=== PATIENT | male | born 1965 | race Hispanic/Latino ===

== ENCOUNTER 2016-09-02 10:20 | Emergency (ER) | payer OTHER ==
[~2016-09-02] VITALS: Ht 175.3 cm; Wt 87.5 kg
[~2016-09-02 10:20] MED LIST: AMOXICILLIN500 MG PO; ATORVASTATIN CA10 MG PO; BACTRIM DS 8001 TAB PO; CHILDREN'S ASPI81 MG PO; DURICEF500 MG PO; ECOTRIN81 MG PO; ESCITALOPRAM10 MG PO; ESCITALOPRAM5 MG PO; FLEXERIL10 MG PO; IBUPROFEN800 MG PO; JANUVIA 100MG100 MG PO; LIDODERM 5% PAT1 PAT TOP; METFORMIN1000 MG PO; MOBIC15 MG PO; MOTRIN800 MG PO; NAPROSYN500 MG PO; NEURONTIN300 MG PO; NORCO 325 MG-51 TAB PO; PEGASYS180 MCG/0. PO; RIBASPHERE RIB PO; ROBITUSSIN W/CO10 ML PO; SOVALDI400 MG PO; TRAMADOL50 MG PO; ZESTRIL20 M1 PO; ZITHROMAX Z-PA250 M1 PO
[2016-09-02] MEDS ORDERED: ASPIRIN EC81 M1 PO (11:01)
[2016-09-02] MEDS ORDERED: NEXIUM40 M1 PO (11:03)
[2016-09-02 11:09] LABS: ABSOLUTE BASOPHIL COUNT 0 /CUMM (0.0-0.2); ABSOLUTE EOSINOPHIL COUNT 0.1 /CUMM (0.0-0.7); ABSOLUTE GRANULOCYTE CT 3.8 /CUMM (1.4-6.5); ABSOLUTE LYMPH COUNT 1.2 /CUMM (1.2-3.4); ABSOLUTE MONOCYTE COUNT 0.7 /CUMM (0.10-0.60); BASOPHIL % 0.2 % (0.0-2.0); EOSINOPHIL % 1.7 % (0-5); GRANULOCYTE % 66.1 % (42.2-75.2); HEMATOCRIT 44.8 % (42-52); MEAN CORPUSCULAR HGB 31.7 PG (27.0-31.0); MEAN CORPUSCULAR HGB CONC 34.7 G/DL (33.0-37.0); MEAN CORPUSCULAR VOLUME 91.4 FL (80.0-94.0); MEAN PLATELET VOLUME 8.6 FL (7.4-10.4); PLATELET COUNT 85 /CUMM (130-400); RBC DISTRIBUTION WIDTH 13.9 % (11.5-14.5); WHITE BLOOD CELL COUNT 5.8 /CUMM (4.8-10.8)
--- NOTE | 2016-09-02 11:27 | ED GI/GU/ABDOMINAL COMPLAINT ---
History of Present Illness General Chief Complaint: General Adult Stated Complaint: N/V/D, CHEST PAIN Source: patient, old records Exam Limitations: no limitations Vital Signs & Intake/Output Vital Signs & Intake/Output Vital Signs Date Time Temp Pulse Resp B/P Pulse O2 O2 Flow FiO2 Ox Delivery Rate 09/02 1359 97.8 76 18 147/88 98 Room Air 09/02 1028 97.6 89 16 162/94 95 Room Air Allergies Coded Allergies: NO KNOWN ALLERGIES (10/29/12) Reconcile Medications Aspirin (Ecotrin*) 81 MG TABLET.DR 1 TAB PO DAILY HEART HEALTH (Reported) Atorvastatin Calcium (Lipitor) 10 MG TABLET 1 TAB PO AT BEDTIME CHOLESTEROL ( Reported) Escitalopram Oxalate 5 MG TABLET 5 MG PO AT BEDTIME DEPRESSION (Reported) Esomeprazole (Nexium) 40 MG CAPSULE.DR 1 CAP PO DAILY GI (Reported) Famotidine (Pepcid) 20 MG TABLET 1 TAB PO BID gastritis Gabapentin (Neurontin) 300 MG CAP 1 CAP PO TID NEUROPATHY Ibuprofen (Motrin) 800 MG TAB 1 TAB PO Q8P PRN PAIN Lisinopril (Zestril) 20 MG TABLET 1 TAB PO DAILY HEART (Reported) METFORMIN HCL (Metformin) 1,000 MG TABLET 1 TAB PO BID UNKNOWN (Reported) Ondansetron (Zofran Odt) 4 MG TAB.RAPDIS 1 TAB SL TID PRN nausea Sitagliptin Phosphate (Januvia) 100 MG TABLET 1 TAB PO DAILY UNKNOWN ( Reported) Triage Note: 51 Y/O MALE C/O "BURNING" ACROSS ABDOMEN X 3 DAYS WITH NAUSEA/VOMITING. STATES HE WOKE TODAY WITH CHEST PAIN BUT, AT PRESENT, THE PAIN IS ONLY ACROSS ABDOMEN. CURRENTLY FEELS " A LITTLE NAUSEOUS". AFEBRILE. EKG COMPLETED AND SIGNED BY MD Triage Nurses Notes Reviewed? yes Onset: Abrupt Duration: day(s): (3), constant Timing: recent history Quality/Severity: aching, burning, cramping, sharpness Severity Numbers: 6 Location: generalized abdomen Radiation: no radiation Activities at Onset: none Prior Abdominal Problems: none Modifying Factors: Worsens With: eating. Associated Symptoms: nausea/vomiting HPI: 51-year-old male with history of hypertension high cholesterol diabetes presents emergency room complaining of burning aching pain generalized across his abdomen for the past 3 days associated multiple episodes of nausea and vomiting and diarrhea this morning. He states that this morning he woke up had an episode of vomiting and developed substernal chest pain that is since resolved. He describes pain as burning. He's been unable tolerate by mouth secondary to his symptoms. He is an active smoker and states that he was drinking heavily prior to the symptoms beginning hours not had any alcoholic drinks since. No history of abdominal surgeries in the past no fever no chills no black or bloody stools no hematemesis. There are no other modifying factors or associated symptoms no sick contacts recent travel. (GRAYSON SKY) Past History Travel History Traveled to [place] past 21 day No Medical History Any Pertinent Medical History? see below for history Neurological: migraine EENT: NONE Cardiovascular: hypertension, HIGH CHOLESTEROL Respiratory: NONE Gastrointestinal: NONE Hepatic: NONE Renal: NONE Musculoskeletal: NONE Psychiatric: NONE Endocrine: diabetes Blood Disorders: NONE Cancer(s): NONE [employer]ESSING/Reproductive: NONE Surgical History Surgical History: JAW FX, RIGHT HIP FX Psychosocial History What is your primary language Malagasy Tobacco Use: Current Daily Use Daily Tobacco Use Amount/Type: => 5 Cigarettes daily Family History Hx Contributory? No (GRAYSON SKY) Review of Systems Review of Systems Constitutional: Reports: see HPI. All Other Systems: Reviewed and Negative Comments Review of systems: See HPI, All other systems negative. Constitutional, no chills no fever, no malaise HEENT: no sore throat no congestion, no ear pain Cardiovascular: No chest pain , no palpitation Skin, no jaundice no rashes, no change in skin Respiratory: No dyspnea no cough no sputum no hemoptysis GI: nausea vomiting, no diarrhea, no bloating/constipation : No dysuria No hematuria, no frequency, Muscle skeletal: No joint pain, no joint swelling, no back pain Neurologic: No numbness no headache Psych: No stress Heme/endocrine: No bruising no bleeding Immunology: No lymphadenopathy (GRAYSON SKY) Physical Exam Physical Exam General Appearance: well developed/nourished, no apparent distress, alert, awake Cardiovascular: regular rate/rhythm Gastrointestinal: normal bowel sounds, soft, non-tender Comments: Well-developed well-nourished person in no acute distress HEENT: Normal EENT exam; PERRL, EOMI, no nystagmus. HEAD is atraumatic. moist mucous membranes. Neck: Supple, normal range of motion Back: Nontender, no CVA tenderness. Full range of motion Cardiovascular: Regular rate and rhythms no murmurs rubs Respiratory: No respiratory distress. Patient speaking in full complete sentences. Breath sounds clear to auscultation bilaterally: NO W/R/R Abdomen: Soft, nontender nondistended, no appreciable organomegaly. Normal bowel sounds. No rebound/guarding, No appreciable enlargement of the abdominal aorta, No ascites. Extremity: No edema, full range of motion of extremitie Neuro: Alert oriented x3, motor sensory normal There were no obvious focal neurologic abnormalities. Skin: No appreciable rash on exposed skin, skin is warm and dry. No jaundice Psych: Mood and affect is normal, memory and judgment is normal. Core Measures ACS in differential dx? Yes Severe Sepsis Present: No Septic Shock Present: No (CHAPINCITO GOMEZ,GRAYSON) Progress Differential Diagnosis: AMI, appendicitis, biliary colic, bowel obstruction, colon cancer, cholecystitis, diverticulitis, gastritis, hepatitis, ischemic bowel, inflamm bowel dis, pancreatitis, peptic ulcer, PUD/GERD, perforated viscous, pyelonephritis Plan of Care: Orders Procedure Date/time Status Add-on Test (ER Only) 09/02 1127 Active LIPASE 09/02 1053 Complete AMYLASE 09/02 1053 Complete TROPONIN LEVEL 09/02 1043 Complete COMPREHENSIVE METABOLIC PANEL 09/02 1043 Complete CBC WITHOUT DIFFERENTIAL 09/02 1043 Complete EKG 09/02 1021 Active Laboratory Tests 09/02/16 1053: Anion Gap 8, Estimated GFR > 60, BUN/Creatinine Ratio 20.0, Glucose 120 H, Calcium 8.5, Total Bilirubin 0.8, AST 117 H, ALT 181 H, Alkaline Phosphatase 88, Troponin I < 0.01, Total Protein 6.7, Albumin 3.5, Globulin 3.2, Albumin/ Globulin Ratio 1.1, Amylase 44, Lipase 173, CBC w Diff NO MAN DIFF REQ, RBC 4.90 , MCV 91.4, MCH 31.7 H, RDW 13.9, MPV 8.6, Gran % 66.1, Lymphocytes % 20.6, Monocytes % 11.4 H, Eosinophils % 1.7, Basophils % 0.2, Absolute Granulocytes 3.8, Absolute Lymphocytes 1.2, Absolute Monocytes 0.7 H, Absolute Eosinophils 0.1, Absolute Basophils 0, PUBS MCHC 34.7 Labs ordered old records reviewed IV fluids Pepcid Zofran Toradol ordered CAT scan ordered. case d/w dr diaz On repeat evaluation patient has had no episodes of vomiting here in the department. I discussed them at length all his lab results and CT findings including the incidental findings on CT regarding his liver which the patient states he is been treated for hepatitis C and has been told he has cirrhosis. I discussed with him the importance of alcohol cessation, prescription for Zofran, Pepcid provided advised clear liquid diet advance as tolerated, advised return anytime sooner if his symptoms worsen or he has any other concerns he feels comfortable this plan (CHAPINCITO GOMEZ,GRAYSON) Diagnostic Imaging: Viewed by Me: CT Scan. Discussed w/RAD: CT Scan. Radiology Impression: PATIENT: ROSELIA PACK PRESENT AGE: 51 PATIENT ACCOUNT NO: [id number] : 63 LOCATION: [facility] ORDERING PHYSICIAN: GRAYSON GOMEZ SERVICE DATE: 09/02/16 EXAM TYPE: CAT - CT ABD & PELVIS W IV CONTRAST EXAMINATION: CT ABDOMEN AND PELVIS WITH CONTRAST CLINICAL INFORMATION: Nausea. Vomiting. Alcohol use. abdominal pain. Rule out pancreatitis. COMPARISON: MRI dated 06/16/2013 TECHNIQUE: Multidetector volumetric imaging was performed of the abdomen and pelvis before and after the IV administration of 95 mL of Optiray 320 intravenous contrast. Sagittal and coronal reformatted images were obtained on the technologist's workstation. DLP: 385 mGy-cm FINDINGS: LUNG BASES: Mild dependent atelectasis is present within the lower lobes. As seen on image series 2, there are 2 pulmonary nodules in the right middle lobe measuring 4 and 3 mm in diameter. LIVER, GALLBLADDER, AND BILIARY TREE: There is relative enlargement of the left hepatic lobe as compared to the right. There is a subtle 5.6 cm lesion in hepatic segment 8 at the dome of the liver which is not well-seen on the prior MRI, though that study was not contrast enhanced. As seen on image series 2, there is a 2.5 x 1 cm area of increased attenuation along the anterior margin of hepatic segment 4A which may correspond to a lesion, focal fatty sparing, or variation of hepatic flow. Subtle nodularity of the hepatic contour is consistent with cirrhosis. The gallbladder is unremarkable with no evidence of radiopaque gallstones, gallbladder wall thickening, or obvious pericholecystic inflammatory changes. PANCREAS: Unremarkable. SPLEEN: Unremarkable. ADRENAL GLANDS: Unremarkable. KIDNEYS AND URETERS: The kidneys are normal in size, shape, and attenuation. No hydronephrosis, hydroureter, or calculi seen. No perinephric stranding. BLADDER: Unremarkable. GASTROINTESTINAL TRACT: Stomach, small bowel, and colon are normal in caliber. No appreciable wall thickening or surrounding inflammatory changes. Appendix is normal. ABDOMINAL WALL: No significant hernia is appreciated. LYMPH NODES: There is a enlarged 1.3 cm periportal lymph node on image 25/95 of series 2. A 1.1 cm portacaval lymph node is present on that same image. A few smaller retroperitoneal lymph nodes are present in this region including a 1 cm node just anteromedial to the left adrenal gland. A 0.8 cm aortocaval node is present on image 34/95 of series 2. There are multiple subcentimeter mesenteric nodes which are within normal limits by size criteria. VASCULAR: Calcific atherosclerosis is present in the abdominal aorta. No interval dilatation. PELVIC VISCERA: Unremarkable. OSSEOUS STRUCTURES: There is mild to moderate multilevel degenerative spondylosis in the thoracal lumbar junction. No acute fractures. No osseous lesions are identified. There is an old healed fracture of the right acetabulum. Mild degenerative arthritis is present in the hips. IMPRESSION: 1. No CT evidence of acute pancreatitis, though serum amylase lipase levels would be more sensitive for mild pancreatitis. No acute findings are identified. 2. Hepatic cirrhosis. A 5.6 cm lesion is present within the right hepatic lobe and, given the cirrhosis and underlying history of hepatitis C, further evaluation with MRI of the abdomen with and without contrast is advised to evaluate this potential neoplasm. Additional smaller, more subtle hepatic lesions may be present in the right hepatic lobe. 3. Mild periportal adenopathy. 4. Two noncalcified pulmonary nodules in the right middle lobe, measuring 3 and 4 mm. Consider follow-up chest CT with contrast for a more complete evaluation of the chest. DICTATED BY: ROB JAMES MD DATE/TIME DICTATED:09/02/161306 CLASSIFICATION ANALYST:IGLBERT DATE/TIME TRANSCRIBED:09/02/161306 CONFIDENTIAL, DO NOT COPY WITHOUT APPROPRIATE AUTHORIZATION. <Electronically signed in Other Vendor System> SIGNED BY: ROB JAMES MD 09/02/16 1328 Initial ED EKG: SINUS AT 80, NO ACUTE st SEGMENT CHANGES NORMAL AXIS Prior EKG: unchanged (07/2014) (GRAYSON SKY) Departure Departure Time of Disposition: 1345 Disposition: HOME OR SELF CARE Condition: Stable Clinical Impression Primary Impression: Abdominal pain Secondary Impressions: Nausea & vomiting Referrals: YVETTE LONDONO APRN (PCP/Family) Additional Instructions: [place] diet no fatty spicy greasy your primary care physician this week return with any concerns clear liquids advance diet as tolerated These prescriptions were sent to your pharmacy Departure Forms: Customer Survey General Discharge Information Prescriptions: Current Visit Scripts Ondansetron (Zofran Odt) 1 TAB SL TID PRN nausea #10 TAB Famotidine (Pepcid) 1 TAB PO BID #14 TAB (GRAYSON SKY) PA/WELDER APPRENTICE Co-Sign Statement Statement: ED Attending supervision documentation- [] I saw and evaluated the patient. I have also reviewed all the pertinent lab results and diagnostic results. I agree with the findings and the plan of care as documented in the PA's/WELDER APPRENTICE's documentation. [X] I have reviewed the ED Record and agree with the PA's/WELDER APPRENTICE's documentation. [] Additions or exceptions (if any) to the PAs/WELDER APPRENTICE's note and plan are summarized below: [] (KAZ DIAZ DO)
--- NOTE | 2016-09-02 13:28 | CT SCAN REPORT ---
EXAMINATION: CT ABDOMEN AND PELVIS WITH CONTRAST CLINICAL INFORMATION: Nausea. Vomiting. Alcohol use. abdominal pain. Rule out pancreatitis. COMPARISON: MRI dated 06/16/2013 TECHNIQUE: Multidetector volumetric imaging was performed of the abdomen and pelvis before and after the IV administration of 95 mL of Optiray 320 intravenous contrast. Sagittal and coronal reformatted images were obtained on the technologist's workstation. DLP: 385 mGy-cm FINDINGS: LUNG BASES: Mild dependent atelectasis is present within the lower lobes. As seen on image 3/ series 2, there are 2 pulmonary nodules in the right middle lobe measuring 4 and 3 mm in diameter. LIVER, GALLBLADDER, AND BILIARY TREE: There is relative enlargement of the left hepatic lobe as compared to the right. There is a subtle 5.6 cm lesion in hepatic segment 8 at the dome of the liver which is not well-seen on the prior MRI, though that study was not contrast enhanced. As seen on image 15/ series 2, there is a 2.5 x 1 cm area of increased attenuation along the anterior margin of hepatic segment 4A which may correspond to a lesion, focal fatty sparing, or variation of hepatic flow. Subtle nodularity of the hepatic contour is consistent with cirrhosis. The gallbladder is unremarkable with no evidence of radiopaque gallstones, gallbladder wall thickening, or obvious pericholecystic inflammatory changes. PANCREAS: Unremarkable. SPLEEN: Unremarkable. ADRENAL GLANDS: Unremarkable. KIDNEYS AND URETERS: The kidneys are normal in size, shape, and attenuation. No hydronephrosis, hydroureter, or calculi seen. No perinephric stranding. BLADDER: Unremarkable. GASTROINTESTINAL TRACT: Stomach, small bowel, and colon are normal in caliber. No appreciable wall thickening or surrounding inflammatory changes. Appendix is normal. ABDOMINAL WALL: No significant hernia is appreciated. LYMPH NODES: There is a enlarged 1.3 cm periportal lymph node on image 25/95 of series 2. A 1.1 cm portacaval lymph node is present on that same image. A few smaller retroperitoneal lymph nodes are present in this region including a 1 cm node just anteromedial to the left adrenal gland. A 0.8 cm aortocaval node is present on image 34/95 of series 2. There are multiple subcentimeter mesenteric nodes which are within normal limits by size criteria. VASCULAR: Calcific atherosclerosis is present in the abdominal aorta. No interval dilatation. PELVIC VISCERA: Unremarkable. OSSEOUS STRUCTURES: There is mild to moderate multilevel degenerative spondylosis in the thoracal lumbar junction. No acute fractures. No osseous lesions are identified. There is an old healed fracture of the right acetabulum. Mild degenerative arthritis is present in the hips. IMPRESSION: 1. No CT evidence of acute pancreatitis, though serum amylase lipase levels would be more sensitive for mild pancreatitis. No acute findings are identified. 2. Hepatic cirrhosis. A 5.6 cm lesion is present within the right hepatic lobe and, given the cirrhosis and underlying history of hepatitis C, further evaluation with MRI of the abdomen with and without contrast is advised to evaluate this potential neoplasm. Additional smaller, more subtle hepatic lesions may be present in the right hepatic lobe. 3. Mild periportal adenopathy. 4. Two noncalcified pulmonary nodules in the right middle lobe, measuring 3 and 4 mm. Consider follow-up chest CT with contrast for a more complete evaluation of the chest.
[2016-09-02] MEDS ORDERED: ZOFRAN ODT4 M1 SL (13:46)
[2016-09-02] MEDS ORDERED: PEPCID20 M1 PO (13:46)
[2016-09-02 13:59] VITALS: BP 147/88
== END 2016-09-02 14:00 ==
LOC: ERH 10:20
PROVIDERS: Emergency Medicine
DX: R10.84 Generalized abdominal pain (principal); R11.2 Nausea with vomiting, unspecified
CPT/HCPCS: 74177; 93005; 93010; 96374; 96375; J1885; J2405

== ENCOUNTER 2017-08-06 09:31 | Emergency (ER) | payer OTHER ==
[~2017-08-06] VITALS: Ht 175.3 cm; Wt 81.6 kg
[~2017-08-06 09:31] MED LIST changes: +ANUSOL-HC25 M1 RC; +ASPIRIN EC81 M1 PO; -ATORVASTATIN CA10 MG PO; +BENTYL10 M1 PO; +CYCLOBENZAPRINE10 M1 PO; +GLUCOPHAGE1000 M1 PO; +IBUPROFEN800 M1 PO; -JANUVIA 100MG100 MG PO; +JANUVIA100 M1 PO; +LIDOCAINE1 EACH TOP; +LINZESS145 MC1 PO; +LIPITOR10 M1 PO; +MAALOX MAXIMUM355 ML PO; -METFORMIN1000 MG PO; +MIRALAX119 GM PO; +NEXIUM40 M1 PO; +OMEPRAZOLE20 M3 PO; +PEPCID20 M1 PO; +PERCOCET 5-3251 EACH PO; +ZOFRAN ODT4 M1 SL
--- NOTE | 2017-08-06 11:03 | ED GI/GU/ABDOMINAL COMPLAINT ---
History of Present Illness General Chief Complaint: Abdominal Pain/Flank Pain Stated Complaint: HX OF STOMACH CANCER C/O ABD PAIN Source: patient, old records Exam Limitations: no limitations Vital Signs & Intake/Output Vital Signs & Intake/Output Vital Signs Date Time Temp Pulse Resp B/P B/P Pulse O2 O2 Flow FiO2 Mean Ox Delivery Rate 08/06 1328 97.1 93 18 153/89 97 08/06 0951 97.9 106 20 147/110 95 Room Air Room Air Allergies Coded Allergies: NO KNOWN ALLERGIES (10/29/12) Reconcile Medications Aspirin (Ecotrin*) 81 MG TABLET.DR 1 TAB PO DAILY HEART HEALTH (Reported) Atorvastatin Calcium (Lipitor) 10 MG TABLET 1 TAB PO DAILY CHOLESTEROL ( Reported) Dicyclomine Hydrochloride (Bentyl) 10 MG CAPSULE 1 CAP PO TID PRN abdominal pain Esomeprazole (Nexium) 40 MG CAPSULE.DR 1 CAP PO DAILY GI (Reported) Famotidine (Pepcid) 20 MG TABLET 1 TAB PO BID GERD Ibuprofen 800 MG TABLET 1 TAB PO TID PRN pain Lidocaine 5 % ADH..PATCH 1 PAT TOP DAILY PAIN (Reported) Linaclotide (Linzess) 145 MCG CAPSULE 1 CAP PO DAILY GI (Reported) Lisinopril (Zestril) 20 MG TABLET 1 TAB PO DAILY BP (Reported) Mag Hydrox/Al Hydrox/Simeth (Maalox Maximum Strength Susp) 400 MG-400 MG-40 MG/5 ML ORAL.SUSP 1 DOSE PO TIDAC PRN abd pain Metformin HCl (Glucophage) 1,000 MG TABLET 1 TAB PO BID DM (Reported) Oxycodone HCl 5 MG TABLET 1 TAB PO BIDP PRN PAIN (Reported) Oxycodone HCl 10 MG TABLET 1 TAB PO 4XDP PRN pain Sitagliptin Phosphate (Januvia) 100 MG TABLET 1 TAB PO DAILY DM (Reported) Triage Note: PT TO ED WITH C/O "ABD PAIN X 2 MONTHS, THEY HAVE TO GET THE FLUID OFF". PT DENIES PRIOR THORACENTESIS IN THE PAST. + NAUSEA + DIARRHEA. Triage Nurses Notes Reviewed? yes Onset: Gradual Duration: constant, x 2 months Timing: recent history Quality/Severity: sharpness, severe Severity Numbers: 8 Location: generalized abdomen Radiation: no radiation Prior Abdominal Problems: similar symptoms No Modifying Factors: none Associated Symptoms: dyspnea HPI: 52-year-old male with history of liver cancer with metastases to the lungs hepatitis C presents complaining of diffuse abdominal pain and distention for the past 2 months. He saw his oncologist Dr. Cain this week and was told that he needs to have the fluid on his abdomen drained. He was supposed to follow-up next week for the same however states could not take the pain anymore. He states it is now making him feel short of breath which he's also had for the past. month. No fever no chills no vomiting or diarrhea however he does report nausea intermittently. The patient is supposed to follow up with a GI doctor and palliative care and pain management out of the [place] next week. He has never had a paracentesis before. There's been no change in his mental status per family he is been taking oxycodone 5 mg for the pain without improvement. no cough no hemoptysis, no chest pain (Lazarus Lu) Past History Travel History Traveled to [place] past 21 day No Medical History Any Pertinent Medical History? 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 No (Lazarus Lu) Review of Systems Review of Systems Constitutional: Reports: see HPI. Comments Review of systems: See HPI, All other systems negative. Constitutional, no chills no fever, malaise HEENT: no sore throat Cardiovascular: No chest pain , no palpitation Skin: no rashes, no change in skin Respiratory: dyspnea no cough no sputum GI: nausea no vomiting, diarrhea : No dysuria No hematuria Muscle skeletal: No joint pain, no back pain, no neck pain, Neurologic: no headache Heme/endocrine: No bruising (Lazarus Lu) Physical Exam Physical Exam General Appearance: well developed/nourished, alert, awake Gastrointestinal: distention, firm, ascites Comments: Well-developed well-nourished person in no acute distress HEENT: Normal EENT exam; PERRL, EOMI,HEAD is atraumatic. moist mucous membranes. Neck: Supple,, normal range of motion Back: Nontender, no CVA tenderness. Full range of motion Cardiovascular: Regular rate and rhythms no murmurs rubs Respiratory: No respiratory distress. Patient speaking in full complete sentences. diminished breath sounds b/l, NO W/R/R Abdomen: Soft, abdomen is firm, nontender distended, Normal bowel sounds. No rebound/guarding, No appreciable enlargement of the abdominal aorta Extremity: No edema, full range of motion of extremities Neuro: Alert oriented x3, motor sensory normal,There were no obvious focal neurologic abnormalities. Skin: skin is jaundice, skin is warm and dry. Psych: Mood and affect is normal, memory and judgment is normal. Core Measures ACS in differential dx? No Sepsis Present: No Sepsis Focused Exam Completed? No (Donna GOMEZ,Lazarus) Progress Differential Diagnosis: bowel obstruction, cholecystitis, gastritis, hepatitis, inflamm bowel dis, pancreatitis, peptic ulcer, PUD/GERD, perforated viscous, SBO , malignancy, sbp Plan of Care: Orders Procedure Date/time Status PARTIAL THROMBOPLASTIN TIME 08/06 1059 Complete PROTHROMBIN TIME 08/06 1059 Complete URINALYSIS 08/06 1054 Complete LIPASE 08/06 1054 Complete LACTIC ACID 08/06 1054 Complete COMPREHENSIVE METABOLIC PANEL 08/06 1054 Complete CBC WITHOUT DIFFERENTIAL 08/06 1054 Complete AMYLASE 08/06 1054 Complete Laboratory Tests 08/06/17 1354: Lactic Acid Cancelled 08/06/17 1204: Urinalysis LIGHT H, Urine Color ORANG H, Urine Clarity CLEAR, Urine pH 6.0, Ur Specific [place] >= 1.030, Urine Protein TRACE H, Urine Ketones TRACE H, Urine Nitrite POS H, Urine Bilirubin POS@ICTO H, Urine Urobilinogen 1.0, Ur Leukocyte Esterase NEG, Ur Microscopic SEDIMENT EXAMINED, Urine RBC 1-3, Urine WBC 1-3 H, Ur Epithelial Cells FEW, Urine Bacteria MANY H, Urine Mucus MOD H, Urine Hemoglobin NEG, Urine Glucose NEG 08/06/17 1130: Anion Gap 15, Estimated GFR > 60, BUN/Creatinine Ratio 24.0, Glucose 159 H, Lactic Acid 1.5, Calcium 9.1, Total Bilirubin 2.8 H, AST 252 H, ALT 113 H, Alkaline Phosphatase 434 H, Total Protein 8.0, Albumin 3.8, Globulin 4.2, Albumin/Globulin Ratio 0.9 L, Amylase 38, Lipase 128, PT 16.6 H, INR 1.59 H, APTT 43 H, CBC w Diff MAN DIFF ORDERED, RBC 3.94 L, MCV 81.4, MCH 27.1, RDW 19.1 H, MPV 9.6, Segmented Neutrophils 60, Band Neutrophils 7 H, Lymphocytes 15 L, Monocytes 17 H, Metamyelocytes 1, Platelet Estimate ADEQUATE, Polychromasia 1+, Hypochromic-Microcytic 2+, Anisocytosis 1+, PUBS MCHC 33.3 case d/w dr aceves and IR, us guided paracentesis ordered. labs ordered, pt med with dilaudid 1mg iv 1310 I discussed with the patient at length all his labs he reports significant improvement and resolution of his pain he had 3500 mL aspirated. I discussed with him need for close follow-up as scheduled next week with palliative care GI pain management and his oncologist. Return precautions were discussed at length I spoke with Dr. Aceves the patient feels well he denies any dizziness lightheadedness she is ambulating around the room well. He denies nausea vomiting. He feels comfortable plan to discharge at this time we'll send him home with oxycodone if he redevelops pain however was advised strongly to return with any concerns he feels comfortable with this plan Diagnostic Imaging: Viewed by Me: Ultrasound. Discussed w/RAD: Ultrasound. Radiology Impression: PATIENT: ROSELIA PACK PRESENT AGE: 52 PATIENT ACCOUNT NO: [id number] : 63 LOCATION: [facility] ORDERING PHYSICIAN: Lazarus GOMEZ SERVICE DATE: 08/06/17 EXAM TYPE: US - US- PARACENTESIS EXAMINATION: PARA/PERITONEOCENTESIS CLINICAL INFORMATION: Ascites TECHNIQUE: Informed consent was obtained from the patient prior to the procedure. During this process, the procedure and potential alternatives were explained, along with the intended outcome and benefits. The risks of the procedure, as wall as the risk of not doing the procedure, were discussed. The patient was given the opportunity to ask questions regarding the procedure and appeared competent to make medical decisions. A signed consent form which documents this discussion was placed in the medical record. A timeout procedure was performed. Ultrasound evaluation of the abdomen for ascites was performed. Hard copy images were stored in our PACS system. A large amount of ascites is noted in the peritoneal cavity. The left lower quadrant was chosen as the access site. Using standard interventional and sterile techniques, under direct US guidance, a 6 Pakistani pigtail catheter was introduced into the left lower quadrant using a standard safety needle technique. Approximately 3550 mL of clear yellow fluid was removed into the standard Vacutainer bottles. The catheter was then removed. A small amount of Dermabond was applied to the entry site. Good hemostasis was achieved. No laboratory tests were requested and the fluid was discarded. The patient demonstrated immediate symptomatic relief. The patient tolerated the procedure well. A sterile dressing was placed. The patient was discharged in good condition. Complications: None Impression: 1. Successful ultrasound-guided paracentesis of 3550 mL of fluid. DICTATED BY: Andry Sebastian MD DATE/TIME DICTATED:08/06/171304 TITLE ASSISTANT:GILBERT DATE/TIME TRANSCRIBED:08/06/171304 CONFIDENTIAL, DO NOT COPY WITHOUT APPROPRIATE AUTHORIZATION. <Electronically signed in Other Vendor System> SIGNED BY: Andry Sebastian MD 08/06/17 1310 Initial ED EKG: none (Lazarus Lu) Departure Departure Time of Disposition: 1309 Disposition: HOME OR SELF CARE Condition: Stable Clinical Impression Primary Impression: Ascites Qualifiers: Ascites type: malignant Qualified Code: R18.0 - Malignant ascites Secondary Impressions: Chronic abdominal pain Elevated bilirubin Liver cancer Qualifiers: Liver malignancy type: unspecified primary liver malignancy Qualified Code: C22.8 - Malignant neoplasm of liver, primary, unspecified as to type Referrals: Kavita Perdue APRN (PCP/Family) Additional Instructions: follow up with your GI out of [place] as scheduled next week as well as your oncologist dr long. oxycodone as directed. this was printed at the [facility]. Return at anytime sooner with any concerns Departure Forms: Customer Survey General Discharge Information Prescriptions: Current Visit Scripts Oxycodone HCl 1 TAB PO 4XDP PRN pain #20 TAB (Lazarus Lu) PA/EDM OPERATOR Co-Sign Statement Statement: ED Attending supervision documentation- [] I saw and evaluated the patient. I have also reviewed all the pertinent lab results and diagnostic results. I agree with the findings and the plan of care as documented in the PA's/EDM OPERATOR's documentation. [X] I have reviewed the ED Record and agree with the PA's/EDM OPERATOR's documentation. [] Additions or exceptions (if any) to the PAs/EDM OPERATOR's note and plan are summarized below: [] (Yola ACEVES,Princess)
[2017-08-06] MEDS ORDERED: OXYCODONE HCL5 M1 PO (11:39)
[2017-08-06 11:52] LABS: PT 16.6 SEC (9.4-12.5); PTT 43 SEC (25-37)
[2017-08-06 12:05] LABS: HEMATOCRIT 32.1 % (42-52); MEAN CORPUSCULAR HGB 27.1 PG (27.0-31.0); MEAN CORPUSCULAR HGB CONC 33.3 G/DL (33.0-37.0); MEAN CORPUSCULAR VOLUME 81.4 FL (80.0-94.0); MEAN PLATELET VOLUME 9.6 FL (7.4-10.4); PLATELET COUNT 248 /CUMM (130-400); RBC DISTRIBUTION WIDTH 19.1 % (11.5-14.5); RED BLOOD CELL CT 3.94 /CUMM (4.70-6.10); WHITE BLOOD CELL COUNT 4.1 /CUMM (4.8-10.8)
--- NOTE | 2017-08-06 13:10 | ULTRASOUND REPORT ---
EXAMINATION: PARA/PERITONEOCENTESIS CLINICAL INFORMATION: Ascites TECHNIQUE: Informed consent was obtained from the patient prior to the procedure. During this process, the procedure and potential alternatives were explained, along with the intended outcome and benefits. The risks of the procedure, as wall as the risk of not doing the procedure, were discussed. The patient was given the opportunity to ask questions regarding the procedure and appeared competent to make medical decisions. A signed consent form which documents this discussion was placed in the medical record. A timeout procedure was performed. Ultrasound evaluation of the abdomen for ascites was performed. Hard copy images were stored in our PACS system. A large amount of ascites is noted in the peritoneal cavity. The left lower quadrant was chosen as the access site. Using standard interventional and sterile techniques, under direct US guidance, a 6 Danish pigtail catheter was introduced into the left lower quadrant using a standard safety needle technique. Approximately 3550 mL of clear yellow fluid was removed into the standard Vacutainer bottles. The catheter was then removed. A small amount of Dermabond was applied to the entry site. Good hemostasis was achieved. No laboratory tests were requested and the fluid was discarded. The patient demonstrated immediate symptomatic relief. The patient tolerated the procedure well. A sterile dressing was placed. The patient was discharged in good condition. Complications: None Impression: 1. Successful ultrasound-guided paracentesis of 3550 mL of fluid.
[2017-08-06] MEDS ORDERED: OXYCODONE HCL5 M2 PO (13:11)
[2017-08-06] MEDS ORDERED: OXYCODONE HCL10 M2 PO (13:20)
[2017-08-06 13:28] VITALS: BP 153/89
== END 2017-08-06 13:57 ==
LOC: ERH 09:31
PROVIDERS: Physician Assistant Medical
DX: R18.8 Other ascites (principal); C22.8 Malignant neoplasm of liver, primary, unspecified as to type; R17 Unspecified jaundice
CPT/HCPCS: 81001; 96374; J3490

== ENCOUNTER 2017-08-20 14:35 | Inpatient (IN) | payer OTHER ==
[~2017-08-20] VITALS: Ht 175.3 cm; Wt 79.6 kg
[~2017-08-20 14:35] MED LIST changes: +OXYCODONE HCL10 M2 PO; +OXYCODONE HCL5 M1 PO; +OXYCODONE HCL5 M2 PO
--- NOTE | 2017-08-20 14:53 | ED GI/GU/ABDOMINAL COMPLAINT ---
History of Present Illness General Chief Complaint: General Adult Stated Complaint: SIB FOR ADMISSION Source: patient, family Exam Limitations: confusion Vital Signs & Intake/Output Vital Signs & Intake/Output Vital Signs Date Time Temp Pulse Resp B/P B/P Pulse O2 O2 Flow FiO2 Mean Ox Delivery Rate 08/22 0944 118/70 08/22 0800 Nasal 5.0L Cannula 08/22 0651 98.0 98 20 118/70 96 Nasal 5.0L Cannula 08/22 0000 Nasal 5.0L Cannula 08/21 2241 98.6 96 20 126/80 94 Nasal 5.0L Cannula 08/21 2223 Nasal 5.0L Cannula 08/21 1845 90 Nasal 6.0L Cannula 08/21 1600 98.0 91 20 110/64 91 Nasal 6.0L Cannula 08/21 1134 Nasal 6.0L Cannula 08/21 1108 112 140/60 ED Intake and Output 08/22 0000 08/21 1200 Intake Total 445 Output Total 450 Balance -450 445 Intake, IV 345 Intake, Oral 100 Number 2 Bowel Movements Output, Urine 450 Patient 172 lb Weight Allergies Coded Allergies: NO KNOWN ALLERGIES (10/29/12) Triage Note: [address] TAYLOR'S OFFICE FOR PROBABLE ADMISSION FOR PAIN CONTROL, POSSIBLE PARACENTESIS AND ? HOSPICE CONSULT. PT HAS EXTENSIVE METS HEPATIC CA AND NEW ONSET CONFUSION AND IRRITIBILITY. WAS SUPPOSED TO RECEIVE MS CONTIN 200MG BUT UNABLE TO FILL DUE TO INSURANCE ISSUES. APPEAR PALE AND O2 SAT 66% BUT REFUSING OXYGEN AT THIS TIME. ABDOMEN FIRM, DISTENDED. PAIN TO ABDOMEN AND BACK. NOT ORIENTED TO TIME. FAMILY AT BEDSIDE Triage Nurses Notes Reviewed? yes HPI: Mr. Pack is a 52 yo m with a PMH significant for HCC (diagnosed 2016) s/p VI[facility] HU[facility] TACE with new metastatic lung disease, Hepatitis C s/p 3 months of therapy and alcoholic cirrhosis. SIB Dr. Ibarra for AMS. Sister and brother at bedside. Patient reports severe diffused abdominal pain with increased abdominal distention. He also reports SOB with no alleviating factors. Sister reports patient received chemo in December 2016 but was lost to follow up. Patient has been having abdominal pain due to ascites that required serial paracentesis. He recently came to [place] ED 08/06/17 for a therapeutic paracentesis and a week later went to [place] for a repeat paracentesis. Dr. Westbrook had a discussion with patient in regards to Hospice and patient was reluctant at the time. His sister who help to take care of him is not his official POA. Patient was reffered to palliative care and is currently having issues with his health insurance in regards to approving his pain medications. Patient denies fever, chills, CP, palpitations, nausea, vomiting, recent alcohol use, urinary or bowel symptoms. (Ritika Mack MD) Reconcile Medications Dronabinol (Marinol) 5 MG CAPSULE 1 CAP PO BID nasuea (Reported) Esomeprazole (Nexium) 40 MG CAPSULE.DR 1 CAP PO DAILY GI (Reported) Hydromorphone HCl (Dilaudid) 8 MG TABLET 1 TAB PO TID pain (Reported) Ibuprofen 800 MG TABLET 1 TAB PO TID PRN pain Lactulose 10 GRAM/15 ML SOLUTION 30 ML PO TID gi (Reported) Lisinopril (Zestril) 20 MG TABLET 1 TAB PO DAILY BP (Reported) Morphine Sulfate (Morphine Sulfate ER) 15 MG TABLET.ER 4 TAB PO TID PRN pain (Reported) Sitagliptin Phosphate (Januvia) 100 MG TABLET 1 TAB PO DAILY DM (Reported) Onset: Gradual Duration: day(s): (FEW) Timing: recent history Location: generalized abdomen Activities at Onset: none Prior Abdominal Problems: similar symptoms (2 RECENT PARACENTESES) (Yola ACEVES,Princess) Past History Travel History Traveled to [place] past 21 day No Medical History Any Pertinent Medical History? see below for history Neurological: migraine EENT: NONE Cardiovascular: hypertension, HIGH CHOLESTEROL Respiratory: NONE Gastrointestinal: peptic ulcer disease (erosive gastritis), internal hemorrhoids Hepatic: NONE Renal: NONE Musculoskeletal: NONE Psychiatric: NONE Endocrine: diabetes Blood Disorders: HEP C Cancer(s): LIVER CANCER TREE WORKER/Reproductive: NONE Surgical History Surgical History: JAW FX, RIGHT HIP FX Psychosocial History What is your primary language Russian Tobacco Use: Cognitive Impairment Family History Hx Contributory? No (Ritika Mack MD) Review of Systems Review of Systems Constitutional: Reports: see HPI. (Ritika Mcak MD) Review of Systems Constitutional: Reports: malaise, weakness. Denies: chills, fever. EENTM: Reports: no symptoms. Respiratory: Reports: short of breath. Denies: cough, sputum production. Cardiovascular: Denies: chest pain. GI: Reports: abdominal pain, distention. Genitourinary: Reports: no symptoms. Musculoskeletal: Reports: no symptoms. Skin: Reports: no symptoms. Neurological/Psychological: Reports: confusion. Hematologic/Endocrine: Denies: bruising, bleeding. Immunologic/Allergic: Reports: no symptoms. All Other Systems: Reviewed and Negative (Yola ACEVES,Princess) Physical Exam Physical Exam General Appearance: mild distress, Disoriented to time Head: atraumatic, normal appearance Eyes: Bilateral: normal appearance, PERRL, EOMI. Ears, Nose, Throat, Mouth: hearing grossly normal Neck: full range of motion, JVD distention Respiratory: normal breath sounds, decreased breath sounds Cardiovascular: regular rate/rhythm Gastrointestinal: distention, tenderness, Positive fluid wave Extremities: BL ankle edema Core Measures ACS in differential dx? No Sepsis Present: No Sepsis Focused Exam Completed? No (Martina ACEVES,[facility]) Physical Exam Neurologic/Psych: no motor/sensory deficits, awake, alert, LETHARGIC BUT ORIENTED Skin: pallor, ASHEN (Yola ACEVES,Princess) Progress Differential Diagnosis: bowel obstruction, colon cancer, ischemic bowel Plan of Care: Orders Procedure Date/time Status RAPID VIRAL INFLUENZA A 08/22 0853 Active MISSING MEDICATION FORM 08/22 UNK Active Transfer Disposition 08/21 2222 Active RT: Evaluation 08/21 1127 Active Transfer patient to 08/21 1105 Active OXYGEN 08/21 UNK Complete OXYGEN DAILY CHARGE 08/21 UNK Complete THERAPIST ORDERS 08/21 UNK Complete OXYGEN SETUP (GEN) 08/21 UNK Complete OXYGEN SETUP CHG 08/20 UNK Complete OXYGEN 08/20 UNK Complete OXYGEN TRANSPORT 08/20 UNK Complete Current Medications Sig/Tanya Start time Last Medication Dose Stop Time Status Admin Albuterol Sulfate 3 ML Q4P PRN 08/21 1145 AC (Proventil) Morphine Sulfate 60 MG BID 08/21 1104 AC 08/22 (Ms Contin) 0944 Prednisone 60 MG DAILY 08/21 1103 AC 08/22 0944 Azithromycin 250 MG DAILY 08/21 1000 AC 08/21 (Zithromax) 1129 Dextrose/Water 250 ML (D5W) Lisinopril 20 MG DAILY 08/21 1000 AC 08/22 (Prinivil) 0944 Hydromorphone HCl 8 MG Q8P PRN 08/21 0845 AC 08/22 (Dilaudid) 0719 Insulin Aspart 0 TIDAC 08/21 0800 AC 08/21 (NovoLOG) 1751 Omeprazole 40 MG DAILY AC 08/21 0700 AC 08/22 (Prilosec) 0659 Vancomycin HCl 1,000 MG Q12H 08/21 0700 AC 08/22 Dextrose/Water 250 ML 0703 (D5W) Ceftazidime 1,000 MG IQ8 08/21 0000 AC 08/22 (Fortaz) 0816 Dronabinol 5 MG BID 08/20 2200 AC 08/22 (Marinol) 0944 Heparin Sodium 5,000 UNIT Q8 08/20 2200 AC 08/22 (Porcine) 0659 Lactulose 30 GM TID 08/20 220 AC 08/20 (Enulose 20GM/30ML) 2153 Ibuprofen 800 MG TID PRN 08/20 1915 AC (Motrin) Laboratory Tests 08/22/17 0810: Anion Gap 12, Estimated GFR > 60, Glucose 113 H, Calcium 8.5, Phosphorus 4.1, Magnesium 2.3, Total Bilirubin 2.5 H, AST 199 H, ALT 105 H, Albumin 3.5, CBC w Diff MAN DIFF ORDERED, RBC 4.21 L, MCV 84.0, MCH 27.0, MCHC 32.1 L, RDW 21.5 H, MPV 8.8, Segmented Neutrophils 88 H, Lymphocytes 5 L, Monocytes 7, Platelet Estimate ADEQUATE, Hypochromic-Microcytic 1+, Anisocytosis 1+, Target Cells 1+ Microbiology 08/22 0853 NASOPHARYN: Influenza Virus A & B Rapid Smear - ORD 08/21 2014 NASOPHARYN: Influenza Virus A & B Rapid Smear - CAN Cancelled: DUPLICATED ORDER PATIENT PANCULTURED, SENT FOR THERAPEUTIC PARACENTESIS. IV ABX GIVEN FOR MULTILOBAR PNEUMONIA, 40% VENTIMASK FOR OXYGENATION. D/W CLAY MOLDER DR HIGGINS. WILL GO TO ICU. (Yola ACEVES,Princess) Initial ED EKG: none Comments: Lactic acidosis noted but due to patient's overload state we will not start him on fluids (Martina ACEVES,[facility]) Diagnostic Imaging: Viewed by Me: Radiology Read, CT Scan, Ultrasound. Discussed w/RAD: Radiology Read, CT Scan, Ultrasound. Radiology Impression: PATIENT: ROSELIA PACK PRESENT AGE: 52 PATIENT ACCOUNT NO: [id number] : 63 LOCATION: [facility] ORDERING PHYSICIAN: Princess Aceves MD SERVICE DATE: 08/20/17 EXAM TYPE: CAT - CT CHEST WO IV CONTRAST EXAMINATION: CT CHEST WITHOUT CONTRAST CLINICAL INFORMATION : Edema, hypoxia. Bilateral infiltrates. COMPARISON: Same day chest radiograph. TECHNIQUE: Contiguous axial thin section helical images of the chest were performed without contrast. The data set was reformatted in the coronal and sagittal planes and reviewed on an independent workstation. DLP: 247 mGy-cm. FINDINGS: The heart is of normal size. There is no pericardial effusion. There is neither mediastinal, hilar nor axillary lymphadenopathy. There are no chest wall masses. There are neither pleural effusions nor pneumothoraces. There is diffuse multifocal groundglass opacification suspicious for pneumonia. There are no demonstrable pulmonary nodules. There is a small amount of free fluid overlying the liver within the upper abdomen. There is also a small amount of free fluid adjacent to the spleen. The liver is of overall normal size with mild heterogeneity to the liver parenchyma with subcapsular nodularity. There is suggestion of an area of heterogeneity within the dome of the liver on image 304 /440 measuring approximately 1.6 cm. The spleen is of normal attenuation, but slightly enlarged measuring 14.2 cm. Subcapsular nodularity to the liver. This is nonspecific, but possibly outside medical sales representative of cirrhosis. There are areas of heterogeneity noted within the dome of the right lobe of the liver. Mass lesions cannot be excluded. Consider correlation with abdominal MRI for further tissue characterization. Bone windows: Neither sclerotic nor lytic bone lesions are identified. IMPRESSION: Multifocal pneumonia. Neither pleural effusions nor pneumothoraces. Small amount of free fluid within the upper abdomen. Splenomegaly. DICTATED BY: Tushar Bustamante MD DATE/TIME DICTATED:08/20/171725 REFRIGERATION TECHNICIAN:GILBERT DATE/TIME TRANSCRIBED:08/20/171725 CONFIDENTIAL, DO NOT COPY WITHOUT APPROPRIATE AUTHORIZATION. <Electronically signed in Other Vendor System> SIGNED BY: Tushar Bustamante MD 08/20/17 1734, PATIENT: ROSELIA PACK PRESENT AGE: 52 PATIENT ACCOUNT NO: [id number] : 63 LOCATION: [facility] ORDERING PHYSICIAN: Ritika Mack MD SERVICE DATE: 08/20/17 EXAM TYPE: US - US-PARACENTESIS EXAMINATION: PARACENTESIS CLINICAL INFORMATION: Ascites COMPARISON: Paracentesis 08/06/2017 TECHNIQUE: Indirect ultrasound guidance using a 5 [place] Yueh catheter FINDINGS: Informed consent was obtained from the patient prior to the procedure. During this process, the procedure alternatives were explained, along with the intended outcome and benefits. The risks of the procedure, as well as the risk of not doing the procedure, was discussed. The patient was given the opportunity to ask questions regarding the procedure and appeared competent to make medical decisions. A signed consent form which documents this discussion was placed in the medical record. Ultrasound evaluation of the abdomen for ascites was performed. Moderate amount of ascites is noted in the left lower quadrant. The site was marked. A timeout procedure was performed. The area was prepped and draped in usual sterile fashion. Using standard interventional and sterile techniques, lidocaine was used to anesthetize the region. A 5 [place] Yueh catheter was introduced into the left lower quadrant using standard safety needle technique. Approximately 2.4 L of yvan fluid was removed into the Vacutainer bottles. The catheter was then removed. Good hemostasis was achieved. Dermabond was placed. The patient demonstrated immediate symptomatic relief. The patient tolerated the procedure well. The patient was discharged from the department in stable condition. COMPLICATIONS: None. IMPRESSION: Successful ultrasound-guided paracentesis yielding 2.4 L of fluid. DICTATED BY: Blaine Wilburn MD DATE/TIME DICTATED:08/20/171704 REFRIGERATION TECHNICIAN:GILBERT DATE/TIME TRANSCRIBED:08/20/171704 CONFIDENTIAL, DO NOT COPY WITHOUT APPROPRIATE AUTHORIZATION. <Electronically signed in Other Vendor System> SIGNED BY: Blaine Wilburn MD 08/20/171708 CXR Impression: PATIENT: ROSELIA PACK PRESENT AGE: 52 PATIENT ACCOUNT NO: [id number] : 63 LOCATION: [facility] ORDERING PHYSICIAN: Ritika Mack MD SERVICE DATE: 08/20/17 EXAM TYPE: RAD - XRY- PORTABLE CHEST XRAY EXAMINATION: XR PORTABLE CHEST CLINICAL INFORMATION: Assess for fluid overload. Low O2 sats and ascites. COMPARISON: There are no recent prior studies available for comparison. TECHNIQUE: Portable 80 degrees semierect frontal view of the chest was obtained. FINDINGS: The lung chamorro are hyperexpanded bilaterally. The cardiac silhouette is prominent. There are increased interstitial markings in the mid zones bilaterally, more extensive on the right. There are no pleural effusions. There are no acute osseous findings. IMPRESSION: 1. There is mild cardiomegaly and increased interstitial markings in the mid zones, consistent with pulmonary edema. The asymmetry between the left and right lungs may be positional. No pleural effusions are demonstrated at present. Correlate clinically. DICTATED BY: Amandeep Chi MD DATE/TIME DICTATED: 08/20/171543 REFRIGERATION TECHNICIAN:GILBERT DATE/TIME TRANSCRIBED:08/20/171543 CONFIDENTIAL, DO NOT COPY WITHOUT APPROPRIATE AUTHORIZATION. <Electronically signed in Other Vendor System> SIGNED BY: Amandeep Chi MD 08/20/17 1552 (Princess Aceves MD) Departure Departure Condition: Stable Referrals: Kavita Perdue APRN (PCP/Family) Departure Forms: Customer Survey General Discharge Information (Martina ACEVES,[facility]) Departure Time of Disposition: 1736 Disposition: STILL A PATIENT Clinical Impression Primary Impression: Multifocal pneumonia Secondary Impressions: Ascites, Respiratory distress Admission Note Spoke With: Elly Harding MD Documentation of Exam: Documentation of any treatments & extenuating circumstances including Concerns Regarding Discharge (functional status, medication knowledge or non-compliance, living conditions, etc.) that warrant an admission rather than observation: [ICU ADMISSION, HIGH FLOW OXYGEN, IV ABX, INTENSIVE ONSULTATION DR HIGGINS, STRESS DOSE STEROIDS, ONCOLOGY CONSULTATION DR ESTEVEZ, HOSPICE CONSULTATION IN HOSPITAL IF PATIENT AGREES, MONITOR I/O, F/U CULTURES] Resident Co-Sign Statement Statement: ED Attending supervision documentation- [X] I saw and evaluated the patient. I have also reviewed all the pertinent lab results and diagnostic results. I agree with the findings and the plan of care as documented in the Resident's documentation. [X] I have reviewed the ED Record and agree with the Resident's documentation. [] Additions or exceptions (if any) to the Resident's note and plan are summarized below: [] (Princess Aceves MD) Critical Care Note Critical Care Note Critical Care Time: 30-74 min (Yola ACEVES,Princess)
--- NOTE | 2017-08-20 15:52 | RADIOLOGY REPORT ---
EXAMINATION: XR PORTABLE CHEST CLINICAL INFORMATION: Assess for fluid overload. Low O2 sats and ascites. COMPARISON: There are no recent prior studies available for comparison. TECHNIQUE: Portable 80 degrees semierect frontal view of the chest was obtained. FINDINGS: The lung chamorro are hyperexpanded bilaterally. The cardiac silhouette is prominent. There are increased interstitial markings in the mid zones bilaterally, more extensive on the right. There are no pleural effusions. There are no acute osseous findings. IMPRESSION: 1. There is mild cardiomegaly and increased interstitial markings in the mid zones, consistent with pulmonary edema. The asymmetry between the left and right lungs may be positional. No pleural effusions are demonstrated at present. Correlate clinically.
[2017-08-20 15:54] LABS: HEMATOCRIT 30.2 % (42-52); MEAN CORPUSCULAR HGB 26.5 PG (27.0-31.0); MEAN CORPUSCULAR HGB CONC 32.2 G/DL (33.0-37.0); MEAN CORPUSCULAR VOLUME 82.5 FL (80.0-94.0); MEAN PLATELET VOLUME 8.7 FL (7.4-10.4); PLATELET COUNT 260 /CUMM (130-400); RBC DISTRIBUTION WIDTH 20.8 % (11.5-14.5); RED BLOOD CELL CT 3.67 /CUMM (4.70-6.10); WHITE BLOOD CELL COUNT 10.4 /CUMM (4.8-10.8)
[2017-08-20 16:03] LABS: PT 23.4 SEC (9.4-12.5); PTT 34 SEC (25-37)
--- NOTE | 2017-08-20 17:09 | ULTRASOUND REPORT ---
EXAMINATION: PARACENTESIS CLINICAL INFORMATION: Ascites COMPARISON: Paracentesis 08/06/2017 TECHNIQUE: Indirect ultrasound guidance using a 5 [place] Yueh catheter FINDINGS: Informed consent was obtained from the patient prior to the procedure. During this process, the procedure alternatives were explained, along with the intended outcome and benefits. The risks of the procedure, as well as the risk of not doing the procedure, was discussed. The patient was given the opportunity to ask questions regarding the procedure and appeared competent to make medical decisions. A signed consent form which documents this discussion was placed in the medical record. Ultrasound evaluation of the abdomen for ascites was performed. Moderate amount of ascites is noted in the left lower quadrant. The site was marked. A timeout procedure was performed. The area was prepped and draped in usual sterile fashion. Using standard interventional and sterile techniques, lidocaine was used to anesthetize the region. A 5 [place] Yueh catheter was introduced into the left lower quadrant using standard safety needle technique. Approximately 2.4 L of yvan fluid was removed into the Vacutainer bottles. The catheter was then removed. Good hemostasis was achieved. Dermabond was placed. The patient demonstrated immediate symptomatic relief. The patient tolerated the procedure well. The patient was discharged from the department in stable condition. COMPLICATIONS: None. IMPRESSION: Successful ultrasound-guided paracentesis yielding 2.4 L of fluid.
--- NOTE | 2017-08-20 17:34 | CT SCAN REPORT ---
EXAMINATION: CT CHEST WITHOUT CONTRAST CLINICAL INFORMATION: Edema, hypoxia. Bilateral infiltrates. COMPARISON: Same day chest radiograph. TECHNIQUE: Contiguous axial thin section helical images of the chest were performed without contrast. The data set was reformatted in the coronal and sagittal planes and reviewed on an independent workstation. DLP: 247 mGy-cm. FINDINGS: The heart is of normal size. There is no pericardial effusion. There is neither mediastinal, hilar nor axillary lymphadenopathy. There are no chest wall masses. There are neither pleural effusions nor pneumothoraces. There is diffuse multifocal groundglass opacification suspicious for pneumonia. There are no demonstrable pulmonary nodules. There is a small amount of free fluid overlying the liver within the upper abdomen. There is also a small amount of free fluid adjacent to the spleen. The liver is of overall normal size with mild heterogeneity to the liver parenchyma with subcapsular nodularity. There is suggestion of an area of heterogeneity within the dome of the liver on image 304/440 measuring approximately 1.6 cm. The spleen is of normal attenuation, but slightly enlarged measuring 14.2 cm. Subcapsular nodularity to the liver. This is nonspecific, but possibly ambulatory service representative of cirrhosis. There are areas of heterogeneity noted within the dome of the right lobe of the liver. Mass lesions cannot be excluded. Consider correlation with abdominal MRI for further tissue characterization. Bone windows: Neither sclerotic nor lytic bone lesions are identified. IMPRESSION: Multifocal pneumonia. Neither pleural effusions nor pneumothoraces. Small amount of free fluid within the upper abdomen. Splenomegaly.
--- NOTE | 2017-08-20 17:59 | History & Physical ---
Fadia Santo 08/20/17 1758: General Information and HPI MD Statement: I have seen and personally examined ROSELIA PACK and documented this H&P. The patient is a 52 year old M who presented with a patient stated chief complaint of [confusion]. Source of Information: patient, family Exam Limitations: clinical condition, poor historian History of Present Illness: 56-year-old male with a past medical history of hepatocellular carcinoma diagnosed in 2017 status post VICTOR HUGO TACE with new metastatic lung disease, hep C 1Astatus post 3 months of therapy and alcoholic cirrhosis, hyperlipidemia, diabetes and GERD was sent by Dr. Greenfield for altered mental status. Patient also reported severe diffuse abdominal pain with increasing abdominal distention. History is obtained from the patient and the chart as emily patient is confused and lethragic. He endorses abdominal pain and distension for 3 months requiring periodic paracentesis. He also endorses non-bloody emesis, with decreased PO intake. He dneies any chest pain, headache, palpitations, dysuria, frequency. According to the ER notes, patient was SIB Dr. Ibarra for AMS after he was seen in the office today. His sister reported that patient received chemo in December 2016 but was lost to follow up. He has been having abdominal pain due to ascites that required serial paracentesis. He recently came to [place] ED 08/06/17 for a therapeutic paracentesis and a week later went to [facility] for a repeat paracentesis (Aug 13). Dr. Westbrook had a discussion with patient in regards to hospice and patient was reluctant at the time. Patient was reffered to palliative care and is currently having issues with his health insurance in regards to approving his pain medications. Allergies/Medications Allergies: Coded Allergies: NO KNOWN ALLERGIES (10/29/12) Home Med list Dronabinol (Marinol) 5 MG CAPSULE 1 CAP PO BID nasuea (Reported) Esomeprazole (Nexium) 40 MG CAPSULE. 1 CAP PO DAILY GI (Reported) Hydromorphone HCl (Dilaudid) 8 MG TABLET 1 TAB PO TID pain (Reported) Ibuprofen 800 MG TABLET 1 TAB PO TID PRN pain Lactulose 10 GRAM/15 ML SOLUTION 30 ML PO TID gi (Reported) Lisinopril (Zestril) 20 MG TABLET 1 TAB PO DAILY BP (Reported) Morphine Sulfate (Morphine Sulfate ER) 15 MG TABLET.ER 4 TAB PO TID PRN pain (Reported) Sitagliptin Phosphate (Januvia) 100 MG TABLET 1 TAB PO DAILY DM (Reported) Compliance With Home Meds: UNKNOWN Past History Travel History Traveled to [place] past 21 day No Medical History Neurological: migraine EENT: NONE Cardiovascular: hypertension, HIGH CHOLESTEROL Respiratory: NONE Gastrointestinal: peptic ulcer disease (erosive gastritis), internal hemorrhoids Hepatic: NONE Renal: NONE Musculoskeletal: NONE Psychiatric: NONE Endocrine: diabetes Blood Disorders: HEP C Cancer(s): LIVER CANCER PROMOTIONS EXECUTIVE/Reproductive: NONE Surgical History Surgical History: JAW FX, RIGHT HIP FX Review of Systems Review of Systems Constitutional: Reports: malaise, weakness. Denies: chills, fever. EENTM: Denies: visual changes. Cardiovascular: Reports: peripheral edema. Denies: chest pain, orthopena, palpitations. Respiratory: Reports: short of breath. Denies: cough, orthopnea, wheezing. GI: Reports: abdominal pain, bloating, distention, nausea, vomiting. Genitourinary: Reports: no symptoms. Musculoskeletal: Reports: no symptoms. Neurological/Psychological: Reports: confusion. Denies: headache, numbness, paresthesia, tingling, tremors. Hematologic/Endocrine: Denies: bleeding. Exam & Diagnostic Data Last 24 Hrs of Vital Signs/I&O Vital Signs Date Time Temp Pulse Resp B/P B/P Pulse O2 O2 Flow FiO2 Mean Ox Delivery Rate 08/20 1732 99.1 08/20 1700 93 22 102/67 93 40% 08/20 1621 91 40% 08/20 1552 98.9 99 22 126/78 90 40% 08/20 1455 24 94 Non 10L ReBreather 08/20 1444 98.0 108 30 132/78 66 Room Air Intake & Output 08/20 1600 08/20 0800 08/20 0000 Intake Total Output Total Balance Patient 180 lb Weight Weight Reported by Patient Measurement Method Physical Exam General Appearance lethargic but arousable and oriented Skin multiple spider angiomatosis HEENT Atraumatic, PERRLA, EOMI, very dry mucous membranes Neck Supple, No JVD Cardiovascular Regular Rate, Normal S1, Normal S2, No Murmurs Lungs b/l ronchi Abdomen Normal Bowel Sounds, Soft, No Tenderness, distended Neurological Normal Speech, Strength at 5/5 X4 Ext, Normal Tone, Sensation Intact, Cranial Nerves 3-12 NL Extremities b/l edema pitting Vascular Normal Pulses, Pulses Symmetrical Last 24 Hrs of Labs/Lee: Laboratory Tests 08/20/17 1547: Anion Gap 11, Estimated GFR > 60, BUN/Creatinine Ratio 24.0, Glucose 132 H, Lactic Acid 2.1, Calcium 8.0 L, Total Bilirubin 2.2 H, AST 160 H, ALT 91 H, Alkaline Phosphatase 370 H, Ammonia 29, Xek-Z-Elwfmceeqoi Pept 276 H, Total Protein 7.1, Albumin 3.1 L, Globulin 4.0, Albumin/Globulin Ratio 0.8 L, Lipase 83, PT 23.4 H, INR 2.25 H, APTT 34, CBC w Diff MAN DIFF ORDERED, RBC 3.67 L, MCV 82.5, MCH 26.5 L, MCHC 32.2 L, RDW 20.8 H, MPV 8.7, Segmented Neutrophils 85 H, Band Neutrophils 2, Lymphocytes 5 L, Monocytes 7, Eosinophils 1, Platelet Estimate ADEQUATE, Polychromasia 1+, Anisocytosis 1+, Microcytic Cells 1+, Target Cells 2+ 08/20/17 1500: pH 7.46 H, pCO2 30 L, pO2 52 L, HCO3 21, ABG O2 Sat (Measured) 82.0 L, Carboxyhemoglobin 2.2, O2 Concentration % 100, O2 Delivery Method NRB, Phlebotomy Draw Site RIGHT RADIAL 08/20/17 1459: Lipase Cancelled Microbiology 08/20 1740 BLOOD: Blood Culture - RECD 08/20 1731 NASOPHARYN: Influenza Virus A & B Rapid Smear - RECD 08/20 1730 BLOOD: Blood Culture - RECD Assessment/Plan Assessment: 56-year-old male with a past medical history of hepatocellular carcinoma diagnosed in 2017 status post VICTOR HUGO TACE with new metastatic lung disease, hep C 1Astatus post 3 months of therapy and alcoholic cirrhosis, hyperlipidemia, diabetes and GERD was sent by Dr. Greenfield for altered mental status. Patient also reported severe diffuse abdominal pain with increasing abdominal distention. He recently came to [facility] ED 08/06/17 for a therapeutic paracentesis and a week later went to [facility] for a repeat paracentesis. Vitals on admission blood pressure 102/67, respiratory rate of 22, pulse 93, MAXIMUM TEMPERATURE 99.1 saturating 66% on room air after which she was placed on 40% nonrebreather. Labs pertinent for a normal white blood cell count of 10,400, 2 bands H&H of 9.7 /30.2, normal MCV of 82.5 the platelet count of 260,000. Serum chemistries revealed a sodium of 135, potassium of 4.4, bicarbonate of 25, BUN 12 with a creatinine of 0.5. Serum glucose was 132, lactic acid of 2.1. Serum calcium of 8.0 with a total bili of 2.2, AST/ALT 160/91, alkaline phosphatase of 370. ProBNP was 277 and serum albumin was 3.1. Lipase was 83. INR 2.25. ABG revealed respiratory alkalosis with a pH of 7.47, PCO2 30, PO2 of 52. Urine not received. HCV viral load was [id number] back in September 2016. Chest x-ray showed mild cardiomegaly and increased interstitial markings in the mid zones, consistent with pulmonary edema. The asymmetry between the left and right lungs may be positional. No pleural effusions are demonstrated at present. Successful ultrasound-guided paracentesis yielding 2.[address] of fluid. Chest CT Multifocal pneumonia. Neither pleural effusions nor pneumothoraces. Small amount of free fluid within the upper abdomen. Splenomegaly. Blood cultures 2 were sent. Assessment and Plan Admit to ICU for closer monitoring. #Acute hypoxic respiratory failure Most likely 2/2 malignancy vs PNA and compression effect from ascites. Of note raid flu was negative for influena. Start broad spectrum bx with Vanc and Ceft. Patient as recently at [facility]. Obtain BCX2, LRC Hydrate with IVF @ 75mls/hr Start Solumedrol 40mg BID IV Titrate O2 to maintain sats > 90% If decompensates, will provide palliation treatment with Morphine nad Ativan Maintain on aspiration precautions #HCC s/p chemoembolization and TACE Poor prognosis, lost to follow up ~ Dr. Westbrook If the patient gets worse the family wishes palliative care then not now - Obtain records from [facility]. #Hep C - S/P 3 months of treatment - not on treatment currently. #DM - Novolog sliding scale. Accuchecks TID AC HS F/U Hba1C #HTN Continue Lisinopril - Diet - Diabetic - DVT Prophylaxis - Heparin 5000IU TID SC - Code Status - DNR/DNI - Patient's sister can be contacted [phone] (Divina Brent). Plan was discussed with Dr. Valenzuela. As Ranked By This Provider Problem List: 1. Respiratory distress 2. Liver cancer 3. Ascites Core Measures/Misc (04/13) Acute Coronary Syndrome ACS Diagnosis: No Congestive Heart Failure Congestive Heart Failure Diagnosis No Cerebrovascular Accident CVA/TIA Diagnosis: No VTE (View Protocol) VTE Risk Factors Age>40 No Mechanical VTE Prophylaxis d/t N/A MechProphylax Ordered No VTE Pharm Prophylaxis d/t NA PharmProphylax ordered Sepsis (View protocol) Sepsis Present: No Resident Review Statement Resident Statement: admitted by resident Bianca ACEVES,[facility] 08/20/17 1910: Attending MD Review Statement Attending Statement Attending MD Statement: examined this patient, discuss w/resident/PA/CARCASS WASHER, agreed w/resident/PA/CARCASS WASHER, discussed with family, reviewed EMR data (avail), discussed with nursing, discussed with case mgmt, reviewed images, amended to note Attending Assessment/Plan: Seen and examined independently Family meeting held with brother and sister Mr. Pack is a 52 yo m with a PMH significant for HCC (diagnosed 2016) s/p VICTOR HUGO TACE with new metastatic lung disease, Hepatitis C s/p 3 months of therapy and alcoholic cirrhosis. SIB Dr. Ibarra for AMS. Sister and brother at bedside. Patient reports severe diffused abdominal pain with increased abdominal distention. He also reports SOB with no alleviating factors. Sister reports patient received chemo in December 2016 but was lost to follow up. Patient has been having abdominal pain due to ascites that required serial paracentesis. He recently came to [facility] ED 08/06/17 for a therapeutic paracentesis and a week later went to [facility] for a repeat paracentesis. Dr. Westrbook had a discussion with patient in regards to Hospice and patient was reluctant at the time. His sister who help to take care of him. Patient was reffered to palliative care and is currently having issues with his health insurance in regards to approving his pain medications. Patient denies fever, chills, CP, palpitations, nausea, vomiting, recent alcohol use, urinary or bowel symptoms. Since he came in he has sig hypoxia and no fever, Has mild cough but severely dyspneic CT scan reviewed from [facility] 2 weeks ago which showed multiple innumerable lung nodules consistant with met disease. CT done today shows diffuse lung infilrate sugg of prob sig lymphangitic carcinamotosis (unlikely bacterial pna rule out influenza IMPRESSION Hypoxic resp failure due to alveolar filling process highly sugg of rapidly advancing malignancy with prob lymphangitic carinamatosis ([address] showed muliple innumerable 9 mm lung nodules diffusely through out the lung with sig lymphadenopathy), Diff dx include viral pna and unlikely bacterial pna Very advanced HCC with cirrhosis with decompensated liver disease Poor performance status with rapidly progressing cancer REC Admit to icu Ruggiero culture Broad spectrum abx with vanco ceftaz and azithro If he has fever etc will start on tamiflu IV steroids 40 bid Keep hob up Discussed with the family and pt They wish to continue present care, however if he gets worse they want no intubation and pt is dnr and dni If he becomes more hypoxic and dyspneic will rx with morphine, and prn ativan, no central line or pressors if he starts to deteriorate Prn paracentesis Po ppi Prog poor If the patient gets worse the family wishes palliative care then not now
[2017-08-20] MEDS ORDERED: MORPHINE SULFAT15 M3 PO (18:59)
[2017-08-20] MEDS ORDERED: LACTULOSE10 GM/153 PO (19:00)
[2017-08-20] MEDS ORDERED: MARINOL5 M1 PO (19:01)
[2017-08-20] MEDS ORDERED: DILAUDID8 M1 PO (19:01)
[2017-08-21 01:48] VITALS: BP 144/80
[2017-08-21 05:05] LABS: MEAN CORPUSCULAR HGB 27.4 PG (27.0-31.0); MEAN CORPUSCULAR HGB CONC 33.3 G/DL (33.0-37.0); MEAN CORPUSCULAR VOLUME 82.4 FL (80.0-94.0); MEAN PLATELET VOLUME 9.1 FL (7.4-10.4); PLATELET COUNT 231 /CUMM (130-400); RBC DISTRIBUTION WIDTH 20.8 % (11.5-14.5); RED BLOOD CELL CT 3.64 /CUMM (4.70-6.10); WHITE BLOOD CELL COUNT 6.3 /CUMM (4.8-10.8)
--- NOTE | 2017-08-21 07:29 | Cons- Oncology ---
General Information and HPI Consulting Request Date of Consult: 08/21/17 Requested By: Bianca ACEVES,Campos Corey Reason for Consult: HCC Source of Information: patient, family, old records Exam Limitations: poor historian History of Present Illness: Mr. Echevarria is a 52 year-old male male with cirrhosis of the liver, alcohol abuse, hepatitis C status post 3 months of therapy, DM, and HCC s/p VICTOR HUGO TACE procedure on 12/31/2016 who presented to the ED on [facility] from [facility] for AMS, intractable pain, and ascites. He has been loss to follow due to multiple missed appointments. He was recently admitted to the [facility] ED with abdominal pain. CT scan of the abdomen and pelvis demonstrated likely metastatic hepatocellular carcinoma. He was seen in palliative care clinic and was admitted for abdominal pain. 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 He was noted to have progressive disease in liver and lung. He was discharged on MS Contin 200 mg 3 times a day and Dilaudid 8-16 mg every 4-6 hours as needed. He has not been able to get MS Contin due to insurance. He was unable to take care of himself at home. He was noted to be more confused at home. He was seen in the clinic yesterday and was sent to the ED for further evaluation. On presentation to the ED, he was noted to be hypoxic. He was taken to have paracentesis which removed 2.4L. He was taken to have CT chest which demonstrated multifocal pneumonia. He was started on antibiotics. He feels a little better this morning. He does not want to any more medications for his bowel movement. He feels less confused. On presentation, he is more somnolent and confused. He is in severe pain with any motion. His abdomen is more distended. I am concerned that he has worsening ascites along with hepatic encephalopathy. With his pain control and unable to stay at home, and concern for his safety. I have referred him to the ED for further evaluation. Allergies/Medications Allergies: Coded Allergies: NO KNOWN ALLERGIES (10/29/12) Home Med List: Dronabinol (Marinol) 5 MG CAPSULE 1 CAP PO BID nasuea (Reported) Esomeprazole (Nexium) 40 MG CAPSULE. 1 CAP PO DAILY GI (Reported) Hydromorphone HCl (Dilaudid) 8 MG TABLET 1 TAB PO TID pain (Reported) Ibuprofen 800 MG TABLET 1 TAB PO TID PRN pain Lactulose 10 GRAM/15 ML SOLUTION 30 ML PO TID gi (Reported) Lisinopril (Zestril) 20 MG TABLET 1 TAB PO DAILY BP (Reported) Morphine Sulfate (Morphine Sulfate ER) 15 MG TABLET.ER 4 TAB PO TID PRN pain (Reported) Sitagliptin Phosphate (Januvia) 100 MG TABLET 1 TAB PO DAILY DM (Reported) Current Medications: Current Medications Sig/Tanya Start time Last Medication Dose Route Stop Time Status Admin Azithromycin 250 MG DAILY 08/21 1000 AC Dextrose/Water 250 ML IV Azithromycin 500 MG ONCE ONE 08/20 1745 DC 08/20 Dextrose/Water 250 ML IV 08/20 1844 2004 Ceftazidime 0 .STK-MED ONE 08/21 0011 DC .ROUTE Ceftazidime 1,000 MG IQ8 08/21 0000 AC 08/21 IV 0008 Ceftazidime 0 .STK-MED ONE 08/20 1814 DC .ROUTE Ceftazidime 1,000 MG ONCE ONE 08/20 1745 DC 08/20 IV 08/20 1746 1821 Dexamethasone 8 MG ONCE ONE 08/20 1745 DC 08/20 IV PUSH 08/20 1746 1821 Dronabinol 5 MG BID 08/20 2200 AC 08/20 PO 2150 Furosemide 20 MG ONCE ONE 08/20 1600 DC 08/20 IV 08/20 1601 1605 Furosemide 0 .STK-MED ONE 08/20 1600 DC IV Heparin Sodium 5,000 UNIT Q8 08/20 2200 AC 08/21 (Porcine) SC 0546 Heparin Sodium 0 .STK-MED ONE 08/20 2145 DC (Porcine) .ROUTE Hydromorphone HCl 8 MG Q8P PRN 08/21 0845 AC PO Ibuprofen 800 MG TID PRN 08/20 1915 AC PO Insulin Aspart 0 TIDAC 08/21 0800 AC SC Lactulose 30 GM TID 08/200 AC 08/20 PO 2153 Lidocaine 1 ML .STK-MED ONE 08/20 1654 DC ID 08/20 1655 Lisinopril 20 MG DAILY 08/21 1000 AC PO Methylprednisolone 40 MG BID 08/20 2200 AC 08/20 IV 2153 Omeprazole 40 MG DAILY AC 08/21 0700 AC 08/21 PO 0546 Sodium Chloride 1,000 ML Q13H 08/20 1930 DC 08/20 IV 08/21 0829 2153 Vancomycin HCl 1,000 MG Q12H 08/21 0700 AC 08/21 Dextrose/Water 250 ML IV 0627 Vancomycin HCl 1,000 MG Q12 08/20 2200 DC Dextrose/Water 250 ML IV Vancomycin HCl 1,000 MG ONCE ONE 08/20 1745 DC 08/20 Dextrose/Water 250 ML IV 08/20 1844 193 Review of Systems Review of Systems Constitutional: Reports: malaise, weakness. Denies: chills, fever. Cardiovascular: Denies: chest pain. Respiratory: Reports: short of breath. GI: Reports: abdominal pain, bloating, diarrhea, nausea. Musculoskeletal: Reports: back pain, joint pain. Neurological/Psychological: Reports: confusion. All Other Systems: Reviewed and Negative Past History Travel History Traveled to [place] past 21 day No Medical History Neurological: migraine EENT: NONE Cardiovascular: hypertension, HIGH CHOLESTEROL Respiratory: NONE Gastrointestinal: peptic ulcer disease (erosive gastritis), internal hemorrhoids Hepatic: NONE Renal: NONE Musculoskeletal: NONE Psychiatric: NONE Endocrine: diabetes Blood Disorders: HEP C Cancer(s): HCC FITNESS TEACHER/Reproductive: NONE Surgical History Surgical History: JAW FX, RIGHT HIP FX Psychosocial History Where Do You Live? Home Smoking Status: Unknown If Ever Smoked Exam & Diagnostic Data Vital Signs and I&O Vital Signs Date Time Temp Pulse Resp B/P B/P Pulse O2 O2 Flow FiO2 Mean Ox Delivery Rate 08/21 0400 90 Nasal 5.0L Cannula 08/21 0149 90 Nasal 5.0L Cannula 08/21 0148 97.7 101 18 144/80 90 Nasal 5.0L Cannula 08/21 0129 89 Nasal 5.0L Cannula 08/21 0013 97.8 101 20 135/83 90 Nasal 5.0L Cannula 08/200 98.0 103 22 135/77 90 Nasal 5.0L Cannula 08/20 2154 91 Nasal 5.0L Cannula 08/20 2130 97.8 106 134/80 08/20 2045 88 Nasal 4.0L Cannula 08/20 2032 98.7 98 134/77 08/20 1930 98.8 100 22 129/73 90 08/20 1732 99.1 08/20 1700 93 22 102/67 93 40% 08/20 1621 91 40% 08/20 1552 98.9 99 22 126/78 90 40% 08/20 1455 24 94 Non 10L ReBreather 08/20 1444 98.0 108 30 132/78 66 Room Air Intake & Output 08/21 1600 08/21 0800 08/21 0000 Intake Total 445 500 Output Total 800 Balance 445 -300 Intake, IV 345 500 Intake, Oral 100 Number 2 Bowel Movements Output, Urine 800 Patient 78.018 kg Weight Physical Exam General Appearance: awake, lethargic, thin Head: atraumatic Eyes: Bilateral: PERRL. Neck: normal inspection Respiratory: chest non-tender, decreased breath sounds, crackles, accessory muscle usage Cardiovascular: tachycardia Gastrointestinal: distention, tenderness (diffuse) Extremities: no edema Neurologic/Psych: awake, disoriented to place, slow response Skin: warm/dry Lymphatic: no anterior cervical bette Last 48 Hours of Lab Results: Laboratory Tests 08/21 08/20 0354 1752 Chemistry Sodium (137 - 145 mmol/L) 136 L Potassium (3.5 - 5.1 mmol/L) 4.6 Chloride (98 - 107 mmol/L) 98 Carbon Dioxide (22 - 30 mmol/L) 24 Anion Gap (5 - 16) 14 BUN (9 - 20 mg/dL) 11 Creatinine (0.7 - 1.2 mg/dL) 0.5 L Estimated GFR (>60 ml/min) > 60 Glucose (65 - 99 mg/dL) 212 H Calcium (8.4 - 10.2 mg/dL) 8.0 L Phosphorus (2.5 - 4.5 mg/dL) 2.6 Magnesium (1.6 - 2.3 mg/dL) 2.2 Total Bilirubin (0.2 - 1.3 mg/dL) 2.1 H AST (17 - 59 U/L) 150 H ALT (21 - 72 U/L) 89 H Albumin (3.5 - 5.0 g/dL) 3.0 L Hematology CBC w Diff MAN DIFF ORDERED WBC (4.8 - 10.8 /CUMM) 6.3 RBC (4.70 - 6.10 /CUMM) 3.64 L Hgb (14.0 - 18.0 G/DL) 10.0 L Hct (42 - 52 %) 30.0 L MCV (80.0 - 94.0 FL) 82.4 MCH (27.0 - 31.0 PG) 27.4 MCHC (33.0 - 37.0 G/DL) 33.3 RDW (11.5 - 14.5 %) 20.8 H Plt Count (130 - 400 /CUMM) 231 MPV (7.4 - 10.4 FL) 9.1 Segmented Neutrophils (42.2 - 75.2 %) 94 H Band Neutrophils (0.0 - 5.0 %) 2 Lymphocytes (20.5 - 51.1 %) 3 L Monocytes (1.7 - 9.3 %) 1 L Platelet Estimate (ADEQUATE) ADEQUATE Polychromasia 1+ Ovalocytes FEW Stomatocytes FEW Other Body Source Fld Total RBCs Counted (%) 100 Urines Urine Color (YEL,AMB,STR) YEL Urine Clarity (CLEAR) CLEAR Urine pH (5.0 - 8.0) 6.0 Ur Specific [place] (1.001 - 1.035) 1.015 Urine Protein (NEG,<30 MG/DL) NEG Urine Ketones (NEG) NEG Urine Nitrite (NEG) NEG Urine Bilirubin (NEG) NEG Urine Urobilinogen (0.1 - 1.0 EU/dl) 0.2 Ur Leukocyte Esterase (NEG) NEG Ur Microscopic EXAM NOT REQUIRED Urine Hemoglobin (NEG) NEG Urine Glucose (N MG/DL) NEG 08/20 08/20 1547 1500 Blood Gas pH (7.35 - 7.45 PH) 7.46 H pCO2 (35 - 45 TORR) 30 L pO2 (80 - 100 TORR) 52 L HCO3 (21 - 28 MEQ/L) 21 ABG O2 Sat (Measured) (>96.0 %) 82.0 L Carboxyhemoglobin (1.5 - 5.0 %) 2.2 O2 Concentration % 100 O2 Delivery Method NRB Chemistry Sodium (137 - 145 mmol/L) 135 L Potassium (3.5 - 5.1 mmol/L) 4.4 Chloride (98 - 107 mmol/L) 98 Carbon Dioxide (22 - 30 mmol/L) 25 Anion Gap (5 - 16) 11 BUN (9 - 20 mg/dL) 12 Creatinine (0.7 - 1.2 mg/dL) 0.5 L Estimated GFR (>60 ml/min) > 60 BUN/Creatinine Ratio (7 - 25 %) 24.0 Glucose (65 - 99 mg/dL) 132 H Hemoglobin A1c (4.2 - 5.8 %) Pending Lactic Acid (0.7 - 2.1 mmol/L) 2.1 Calcium (8.4 - 10.2 mg/dL) 8.0 L Total Bilirubin (0.2 - 1.3 mg/dL) 2.2 H AST (17 - 59 U/L) 160 H ALT (21 - 72 U/L) 91 H Alkaline Phosphatase (< 127 U/L) 370 H Ammonia (9 - 30 umol/L) 29 [id number]-[id number] Pept (<125 pg/mL) 276 H Total Protein (6.3 - 8.2 g/dL) 7.1 Albumin (3.5 - 5.0 g/dL) 3.1 L Globulin (1.9 - 4.2 gm/dL) 4.0 Albumin/Globulin Ratio (1.1 - 2.2 %) 0.8 L Lipase (23 - 300 U/L) 83 Coagulation PT (9.4 - 12.5 SEC) 23.4 H INR (0.90 - 1.17) 2.25 H APTT (25 - 37 SEC) 34 Hematology CBC w Diff MAN DIFF ORDERED WBC (4.8 - 10.8 /CUMM) 10.4 RBC (4.70 - 6.10 /CUMM) 3.67 L Hgb (14.0 - 18.0 G/DL) 9.7 L Hct (42 - 52 %) 30.2 L MCV (80.0 - 94.0 FL) 82.5 MCH (27.0 - 31.0 PG) 26.5 L MCHC (33.0 - 37.0 G/DL) 32.2 L RDW (11.5 - 14.5 %) 20.8 H Plt Count (130 - 400 /CUMM) 260 MPV (7.4 - 10.4 FL) 8.7 Segmented Neutrophils (42.2 - 75.2 %) 85 H Band Neutrophils (0.0 - 5.0 %) 2 Lymphocytes (20.5 - 51.1 %) 5 L Monocytes (1.7 - 9.3 %) 7 Eosinophils (0 - 5.0 %) 1 Platelet Estimate (ADEQUATE) ADEQUATE Polychromasia 1+ Anisocytosis 1+ Microcytic Cells 1+ Target Cells 2+ Miscellaneous Phlebotomy Draw Site RIGHT RADIAL 08/20 1459 Chemistry Lipase Cancelled Imaging/Other Studies: Chest CT without contrast 08/20/2016: The heart is of normal size. There is no pericardial effusion. There is neither mediastinal, hilar nor axillary lymphadenopathy. There are no chest wall masses. There are neither pleural effusions nor pneumothoraces. There is diffuse multifocal groundglass opacification suspicious for pneumonia. There are no demonstrable pulmonary nodules. There is a small amount of free fluid overlying the liver within the upper abdomen. There is also a small amount of free fluid adjacent to the spleen. The liver is of overall normal size with mild heterogeneity to the liver parenchyma with subcapsular nodularity. There is suggestion of an area of heterogeneity within the dome of the liver on image 304/440 measuring approximately 1.6 cm. The spleen is of normal attenuation, but slightly enlarged measuring 14.2 cm. Subcapsular nodularity to the liver. This is nonspecific, but possibly manufacturers service representative of cirrhosis. There are areas of heterogeneity noted within the dome of the right lobe of the liver. Mass lesions cannot be excluded. Consider correlation with abdominal MRI for further tissue characterization. Bone windows: Neither sclerotic nor lytic bone lesions are identified. Assessment/Plan Assessment: Mr. Echevarria is a 52 year-old male male with cirrhosis of the liver, alcohol abuse, hepatitis C status post 3 months of therapy, DM, and HCC s/p VICTOR HUGO TACE procedure on 12/31/2016 who presented to the ED on referral from the Cancer Center for AMS, intractable pain, and ascites. He presented to the Cancer Center with worsening abdominal pain, distention, and altered mental status. He was recently discharged from the [facility] and has progressively worsened since that time. His presentation is concerning for hepatic encephalopathy initially. On presentation, CT scan demonstrated multifocal pneumonia. This is likely the etiology behind his mental status in addition to liver disease. He is currently on antibiotics and had had a paracentesis. Clinically he seems to be a low bit better this morning. I discussed with the patient regarding treatment of his hepatocellular cancer. If his clinical condition continues to worsen, he may not be a candidate for therapy. If he does improve, his option would be sorafenib oral therapy. His overall prognosis is poor. Best supportive care such as hospice would be a good option for the patient if he is amenable. He continues to want to "fight" the cancer. He would need a short-term rehab or skilled facility given his current condition. Recommendations: Acute hypoxic respiratory failure secondary to pneumonia: - oxygen supplementation as per primary - continue antibiotics as per ICU Encephalopathy related to cirrhosis and infection: - continue antibiotics as per ICU - lactulose for 3 to 4 bowel movements a day Metastatic HCC: - overall poor prognosis - potential candidate for sorafenib oral if clinically improved - will benefit from assisted or acute rehab Problem List: 1. Cirrhosis of liver 2. HCC (hepatocellular carcinoma) 3. Multifocal pneumonia 4. Metastatic lung cancer (metastasis from lung to other site) Other Findings/Comments: Please call [phone] with any questions or concern. Consult Acknowledgment - Thank you for your consult request.
--- NOTE | 2017-08-21 07:49 | PN- Resident CRCU ---
Subjective HPI/CRCU Issues: INR Patient is a 52-year-old male with past medical history of alcohol-induced cirrhosis, hepatocellular carcinoma(diagnosed 2016, s/p post VICTOR HUGO TACE on 2016 with new metastatic lung disease, noncompliant with follow-up), hepatitis C , type I, status post 3 months treatment sent by for altered mental status, intractable pain, ascites. At the time of presentation , his SPO2 was 66%, he was severely dyspneic and having cough and according to the ED course he CT scan around 2 weeks ago was showing multiple innumerable lung nodules consistant with metastatic disease. CT done today shows diffuse lung infilrate suggestive of lymphangitic carcinamotosis. He had paracentesis of around 2.4 liters at the time of admission. There was a discussion between attending and family about the goals of care. 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 Alcohol use disorder. Type 2 diabetes. 24 Hour Events: Temperature 97.4, pulse 101, normal sinus rhythm, respiratory 20, blood pressure 132/81, SPO2 90% on room air. 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 We will continue injection, varicose/ceftaz/azithromycin. We will continue injection as to not 40 milligrams IV twice a day If patient started getting fever, we will consider Tamiflu. Discussion with the patient about goals of care is already done and according to his rash. He want to continue present care, but if he gets deteriorated then DNR /DNI, no central line The patient become more hypoxic and short of breath. We will consider IV morphine/when necessary Ativan. Pain management We started him on his home doses of tablet Dilaudid 8 milligrams by mouth 3 times a day when necessary. Type 2 diabetes - Blood sugar measurement 3 times a day/at bedtime NovoLog according to the sliding scale. Problem List: 1. Metastatic lung cancer (metastasis from lung to other site) 2. Chronic abdominal pain 3. Hepatocellular carcinoma metastatic to left lung Pain Ratin Pain Location: Abdomen and back pain Pain Goal: Remain pain free Pain Plan: Pain medication according to the pain scale Tomorrow's Labs & Rationales: CBC/BEP for follow up
[2017-08-21 08:00] VITALS: BP 126/70
--- NOTE | 2017-08-21 10:55 | PN- CRCU ---
Subjective HPI/Critical Care Issues: Still has sig pain and wishes more pain meds Objective Current Medications: Current Medications Sig/Tanya Start time Last Medication Dose Route Stop Time Status Admin Azithromycin 250 MG DAILY 08/21 1000 AC Dextrose/Water 250 ML IV Azithromycin 500 MG ONCE ONE 08/20 1745 DC 08/20 Dextrose/Water 250 ML IV 08/20 1844 2004 Ceftazidime 0 .STK-MED ONE 08/21 0011 DC .ROUTE Ceftazidime 1,000 MG IQ8 08/21 0000 AC 08/21 IV 0907 Ceftazidime 0 .STK-MED ONE 08/20 1814 DC .ROUTE Ceftazidime 1,000 MG ONCE ONE 08/20 1745 DC 08/20 IV 08/20 1746 1821 Dexamethasone 8 MG ONCE ONE 08/20 1745 DC 08/20 IV PUSH 08/20 1746 1821 Dronabinol 5 MG BID 08/20 2200 AC 08/20 PO 2150 Furosemide 20 MG ONCE ONE 08/20 1600 DC 08/20 IV 08/20 1601 1605 Furosemide 0 .STK-MED ONE 08/20 1600 DC IV Heparin Sodium 5,000 UNIT Q8 08/20 2200 AC 08/21 (Porcine) SC 0546 Heparin Sodium 0 .STK-MED ONE 08/20 2145 DC (Porcine) .ROUTE Hydromorphone HCl 8 MG Q8P PRN 08/21 0845 AC 08/21 PO 0904 Ibuprofen 800 MG TID PRN 08/20 1915 AC PO Insulin Aspart 0 TIDAC 08/21 0800 AC SC Lactulose 30 GM TID 08/20 2200 AC 08/20 PO 2153 Lidocaine 1 ML .STK-MED ONE 08/20 1654 DC ID 08/20 1655 Lisinopril 20 MG DAILY 08/21 1000 AC PO Methylprednisolone 40 MG BID 08/20 2200 AC 08/20 IV 2153 Omeprazole 40 MG DAILY AC 08/21 0700 AC 08/21 PO 0546 Sodium Chloride 1,000 ML Q13H 08/20 1930 DC 08/20 IV 08/21 0829 2153 Vancomycin HCl 1,000 MG Q12H 08/21 0700 AC 08/21 Dextrose/Water 250 ML IV 0627 Vancomycin HCl 1,000 MG Q12 08/20 2200 DC Dextrose/Water 250 ML IV Vancomycin HCl 1,000 MG ONCE ONE 08/20 1745 DC 08/20 Dextrose/Water 250 ML IV 08/20 1844 1933 Vital Signs & I&O Last 24 Hrs of Vitals and I&O: Vital Signs Date Time Temp Pulse Resp B/P B/P Pulse O2 O2 Flow FiO2 Mean Ox Delivery Rate 08/21 0400 90 Nasal 5.0L Cannula 08/21 0149 90 Nasal 5.0L Cannula 08/21 0148 97.7 101 18 144/80 90 Nasal 5.0L Cannula 08/21 0129 89 Nasal 5.0L Cannula 08/21 0013 97.8 101 20 135/83 90 Nasal 5.0L Cannula 08/20 2250 98.0 103 22 135/77 90 Nasal 5.0L Cannula 08/20 2155 91 Nasal 5.0L Cannula 08/20 2131 97.8 106 134/80 08/20 2046 88 Nasal 4.0L Cannula 08/20 203 98.7 98 134/77 08/20 1931 98.8 100 22 129/73 90 08/20 1732 99.1 08/20 1700 93 22 102/67 93 40% 08/20 1621 91 40% 08/20 1552 98.9 99 22 126/78 90 40% 08/20 1455 24 94 Non 10L ReBreather 08/20 1444 98.0 108 30 132/78 66 Room Air Intake & Output 08/21 1600 08/21 0800 08/21 0000 Intake Total 445 500 Output Total 800 Balance 445 -300 Intake, IV 345 500 Intake, Oral 100 Number 2 Bowel Movements Output, Urine 800 Patient 172 lb Weight Impression/Plan Impression/Plan Impression/Plan: Mr. Echevarria is a 52 yo m with a PMH significant for HCC (diagnosed 2016) s/p VICTOR HUGO TACE with new metastatic lung disease, Hepatitis C s/p 3 months of therapy and alcoholic cirrhosis. SIB Dr. Ibarra for AMS. Sister and brother at bedside. Patient reports severe diffused abdominal pain with increased abdominal distention. He also reports SOB with no alleviating factors. Sister reports patient received chemo in December 2016 but was lost to follow up. Patient has been having abdominal pain due to ascites that required serial paracentesis. He recently came to [place] ED 08/06/17 for a therapeutic paracentesis and a week later went to [place] for a repeat paracentesis. Dr. Westbrook had a discussion with patient in regards to Hospice and patient was reluctant at the time. His sister who help to take care of him. Patient was reffered to palliative care and is currently having issues with his health insurance in regards to approving his pain medications. Patient denies fever, chills, CP, palpitations, nausea, vomiting, recent alcohol use, urinary or bowel symptoms. Since he came in he has sig hypoxia and no fever, Has mild cough but severely dyspneic CT scan reviewed from [facility] 2 weeks ago which showed multiple innumerable lung nodules consistant with met disease. CT done today shows diffuse lung infilrate sugg of prob sig lymphangitic carcinamotosis (unlikely bacterial pna rule out influenza IMPRESSION * Hypoxic resp failure due to alveolar filling process highly sugg of rapidly advancing malignancy with prob lymphangitic carinamatosis ([address] showed muliple innumerable 9 mm lung nodules diffusely through out the lung with sig lymphadenopathy), Diff dx include viral pna and unlikely bacterial pna * Very advanced HCC with cirrhosis with decompensated liver disease * Poor performance status with rapidly progressing cancer REC Stable now and can go to the floor later Pt wishes more pain control, will increase his narcotics Lactulose daily for goal of 3-4 bm daily Cont steroids and reduce the dose to 60 mg daily Broad spectrum abx with vanco ceftaz and azithro If he has fever etc will start on tamiflu Increase hydromorphone to 8 mg q 4 hrs prn, and start MS contin 30 bid and if alex increase to 60 bid and sub to 100 bid in escalating doses Keep hob up Discussed with the family and pt They wish to continue present care, however if he gets worse they want no intubation and pt is dnr and dni If he becomes more hypoxic and dyspneic will rx with morphine, and prn ativan, no central line or pressors if he starts to deteriorate Prn paracentesis Cxr in am Po ppi Prog poor If the patient gets worse the family wishes palliative care then not now
[2017-08-21 16:00] VITALS: BP 110/64
[2017-08-21 22:41] VITALS: BP 126/80
[2017-08-22 06:51] VITALS: BP 118/70
--- NOTE | 2017-08-22 07:18 | PN- Housestaff ---
Gianluca ACEVES,Suzette 08/22/17 0718: Subjective Follow-up For: 1. Hypoxic respiratory failure secondary to lymphangitic carcinomatosis/ metastatic lung cancer vs multilobar pneumonia 2.Cancer Pain management 3.Metastatic hepatocellular carcinoma 4.Encephalopathy related to decompensated cirrhosis and infection in patient with past history of Hepatitis C infection 3.Type 2 diabetes Subjective: Patient was seen and examined at bedside, he reports improvement of his shortness of breath, he also reports abdominal pain 6.5/10 in severity which is better than yesterday on the new regimen of the pain meds. Still endorses loss of appetite. He was refusing to take his lactulose in the a.m. because it causes him to have severe diarrhea. He denies any chills, fever, vomiting or diarrhea Review of Systems Constitutional: Denies: no symptoms. Cardiovascular: Denies: no symptoms. Respiratory: Reports: short of breath. Gastrointestinal: Reports: abdominal pain, bloating, nausea. Genitourinary: Denies: no symptoms. Musculoskeletal: Denies: no symptoms. Skin: Denies: no symptoms. Objective Last 24 Hrs of Vital Signs/I&O Vital Signs Date Time Temp Pulse Resp B/P B/P Pulse O2 O2 Flow FiO2 Mean Ox Delivery Rate 08/22 0944 118/70 08/22 0800 Nasal 5.0L Cannula 08/22 0651 98.0 98 20 118/70 96 Nasal 5.0L Cannula 08/22 0000 Nasal 5.0L Cannula 08/21 2241 98.6 96 20 126/80 94 Nasal 5.0L Cannula 08/21 2223 Nasal 5.0L Cannula 08/21 1845 90 Nasal 6.0L Cannula 08/21 1600 98.0 91 20 110/64 91 Nasal 6.0L Cannula 08/21 1134 Nasal 6.0L Cannula Intake & Output 08/22 1600 08/22 0800 08/22 0000 Intake Total 100 Output Total 100 Balance 0 Intake, Oral 100 Output, Urine 100 Patient 172 lb Weight Physical Exam General Appearance: Alert, Oriented X3, Cooperative, CACHECTIC HEENT: Atraumatic, PERRLA, EOMI, JAUNDICE Neck: Supple, No JVD Cardiovascular: Normal S1, Normal S2, No Murmurs Lungs: BILATERAL DECREASED AIR ENTERY Abdomen: Normal Bowel Sounds, DISTENDED Neurological: Normal Speech, Strength at 5/5 X4 Ext, Normal Tone Extremities: No Clubbing, No Cyanosis, BILATERAL PITTING EDEMA Vascular: Normal Pulses Assessment/Plan Assessment: 56-year-old male with a past medical history of hepatocellular carcinoma diagnosed in 2017 status post VICTOR HUGO TACE with new metastatic lung disease, hep C 1Astatus post 3 months of therapy and alcoholic cirrhosis, hyperlipidemia, diabetes and GERD was sent by Dr. Florenitno for altered mental status.He was taken to have an IR guided paracentesis which removed 2.4L. He was admitted to the ICU ,He was started on IV broad-spectrum antibiotics with IV vancomycin, ceftizoxime and azithromycin. His pain was controlled with hydromorphone and MS Contin. #Hypoxic respiratory failure: Differential diagnoses includes : lymphangitic carcinomatosis/rapidly advancing metastatic lung cancer vs multilobar pneumonia * blood and urine cultures were negative * His flu swab has been negative but if he spikes fever can start empiric Tamiflu as a viral pneumonia is a possible differential diagnosis * Continue IV vancomycin/ceftaz/azithromycin * We'll follow up on chest x-ray * Decrease prednisone to 40 mg daily for 5 days then start to taper over 10 days * Discussion with the patient about goals of care is already done and according to his wishes. He want to continue present care, but if he gets deteriorates no central line, no pressors and palliative care * If he is more hypoxic and short of breath consider IV morphine/when necessary for shortness of breath. # Cancer Pain management Patient is requesting to increase his pain meds * Continue MS Contin 60 mg twice a day * Continue by mouth hydromorphone 8 mg every 8 hours # Metastatic hepatocellular carcinoma * Follow up with hematology in 1 week of discharge to discuss sorafenib treatment. With * Prognosis is poor #Encephalopathy related to decompensated cirrhosis and infection in patient with past history of Hepatitis C infection Improving * Continue antibiotics * When necessary paracentesis * Continue Lactulose for 3 to 4 bowel movements a day #Type 2 diabetes * Accucheks TIDACHS times a day/at bedtime * NovoLog according to the sliding scale. DNR/DNI saline Carbohydrate DVT prophylaxis with subcutaneous heparin Problem List: 1. Hepatocellular carcinoma metastatic to left lung 2. Multifocal pneumonia 3. Ascites Pain Ratin Pain Location: Abdomen Pain Goal: Pain 4 or less Pain Plan: Pain pathway Tomorrow's Labs & Rationales: CBC BEP DVT/Prophylaxis: mechanical, pharmacological Baltazar ACEVESHayliemorris 08/22/17 1258: Attending MD Review Statement Attending Statement Attending MD Statement: examined this patient, discuss w/resident/PA/RETAIL SALES ASSISTANT, agreed w/resident/PA/RETAIL SALES ASSISTANT, reviewed EMR data (avail) Attending Assessment/Plan: 52M PMH HCC (diagnosed 2016) s/p VICTOR HUGO TACE with new metastatic lung disease, Hepatitis C s/p 3 months of therapy and alcoholic cirrhosis admitted for respiratory failure, hypoxia, dyspnea, malignant ascites. Patient has improved with Prednisone and broad spectrum antibiotics. His respiratory failure is likely multifactorial and primarily related to lung metastasis with lymphangitic spread. He is s/p therapeutic paracentesis. He is still short of breath with exertion today, but overall feels better. Appetite is poor but improving. Abdomen is soft and without evidence of ascites. He is having normal BMs. His pain is generally 6/10 but he is ok with this and does not want increased pain med doses right now. 1. Acute hypoxemic respiratory failure secondary to lung metastases 2. Stage 4 hepatocellular carcinoma 3. Lymphangitic carcinamatosis 4. Chronic pain secondary to malignancy 5. Alcoholic/HCV cirrhosis Plan - Continue on general medicine - Continue current antibiotics - Continue Prednisone 40mg x 5 days - Would continue MS-contin 60mg BID - Continue PRN Dilaudid - Continue lactulose goal 3-4 BM/day - Follow pulmonary and oncology recommendations - DVT PPx - DNR/DNI
[2017-08-22 09:26] LABS: MEAN CORPUSCULAR HGB CONC 32.1 G/DL (33.0-37.0); MEAN PLATELET VOLUME 8.8 FL (7.4-10.4); PLATELET COUNT 263 /CUMM (130-400); RBC DISTRIBUTION WIDTH 21.5 % (11.5-14.5); RED BLOOD CELL CT 4.21 /CUMM (4.70-6.10)
--- NOTE | 2017-08-22 09:29 | PN- Oncology ---
Subjective Subjective: He is doing clinically better. He is more alert and oriented. His pain is more controlled. He has no fever or chills. He has no nausea or vomiting. Review of Systems Constitutional: Reports: malaise, weakness. Denies: chills, fever. Cardiovascular: Denies: chest pain. Respiratory: Denies: short of breath. Gastrointestinal: Reports: abdominal pain, nausea. Denies: vomiting. Musculoskeletal: Reports: back pain. All Other Systems: Reviewed and Negative Objective Vital Signs and I&Os Vital Signs Date Time Temp Pulse Resp B/P B/P Pulse O2 O2 Flow FiO2 Mean Ox Delivery Rate 08/22 0651 98.0 98 20 118/70 96 Nasal 5.0L Cannula 08/22 0000 Nasal 5.0L Cannula 08/21 2241 98.6 96 20 126/80 94 Nasal 5.0L Cannula 08/21 2223 Nasal 5.0L Cannula 08/21 1845 90 Nasal 6.0L Cannula 08/21 1600 98.0 91 20 110/64 91 Nasal 6.0L Cannula 08/21 1134 Nasal 6.0L Cannula 08/21 1108 112 140/60 Intake & Output 08/22 1600 08/22 0800 08/22 0000 08/21 1600 08/21 0800 08/21 0000 Intake Total 100 445 500 Output Total 100 450 800 Balance 0 -450 445 -300 Intake, IV 345 500 Intake, Oral 100 100 Number 2 Bowel Movements Output, Urine 100 450 800 Patient 78.018 kg Weight Physical Exam: General Appearance: awake, alert, thin Head: atraumatic Eyes: Bilateral: PERRL. Respiratory: chest non-tender, decreased breath sounds, crackles , mild distention Cardiovascular: tachycardia Gastrointestinal: distention, tenderness (diffuse) Extremities: no edema Neurologic/Psych: awake, alert and oriented x3, slow response Skin: warm/dry Current Medications: Current Medications Sig/Tanya Start time Last Medication Dose Route Stop Time Status Admin Albuterol Sulfate 3 ML Q4P PRN 08/21 1145 AC INH Azithromycin 250 MG DAILY 08/21 1000 AC 08/21 Dextrose/Water 250 ML IV 1129 Ceftazidime 1,000 MG IQ8 08/21 0000 AC 08/22 IV 0816 Dronabinol 5 MG BID 08/20 2199 AC 08/21 PO 220 Heparin Sodium 5,000 UNIT Q8 08/20 2199 AC 08/22 (Porcine) SC 0659 Hydromorphone HCl 8 MG Q8P PRN 08/21 0845 AC 08/22 PO 0719 Ibuprofen 800 MG TID PRN 08/20 1915 AC PO Insulin Aspart 0 TIDAC 08/21 0800 AC 08/21 SC 1751 Lactulose 30 GM TID 08/20 2200 AC 08/20 PO 2153 Lisinopril 20 MG DAILY 08/21 1000 AC 08/21 PO 1108 Methylprednisolone 40 MG BID 08/20 2200 DC 08/20 IV 2153 Morphine Sulfate 60 MG Q8 08/21 1400 DC PO Morphine Sulfate 60 MG BID 08/21 1104 AC 08/21 PO 2208 Omeprazole 40 MG DAILY AC 08/21 0700 AC 08/22 PO 0659 Prednisone 60 MG DAILY 08/21 1103 AC 08/21 PO 1543 Vancomycin HCl 1,000 MG Q12H 08/21 0700 AC 08/22 Dextrose/Water 250 ML IV 0703 Results Last 24 Hours of Lab Results: Laboratory Tests 08/22 0810 Chemistry Sodium Pending Potassium Pending Chloride Pending Carbon Dioxide Pending Anion Gap Pending BUN Pending Creatinine Pending Glucose Pending Calcium Pending Phosphorus Pending Magnesium Pending Total Bilirubin Pending AST Pending ALT Pending Albumin Pending Hematology CBC w Diff Pending WBC Pending RBC Pending Hgb Pending Hct Pending MCV Pending MCH Pending MCHC Pending RDW Pending Plt Count Pending MPV Pending Assessment/Plan Assessment/Recommendations: Mr. Echevarria is a 52 year-old male male with cirrhosis of the liver, alcohol abuse, hepatitis C status post 3 months of therapy, DM, and HCC s/p VICTOR HUGO TACE procedure on 12/31/2016 who presented to the ED on referral from the [facility] for AMS, intractable pain, and ascites. He presented to the Cancer Center with worsening abdominal pain, distention, and altered mental status. He was recently discharged from the [facility] and has progressively worsened since that time. His presentation is concerning for hepatic encephalopathy initially. On presentation, CT scan demonstrated multifocal pneumonia. This is likely the etiology behind his mental status in addition to liver disease. He is currently on antibiotics and had had a paracentesis. Clinically he is doing significantly better. He is up and moving around. He has no fever or chills. His mental status lot better. I recommended the patient to be in a short-term rehab or nursing facility. He should follow-up as outpatient within 1 week of discharge to discuss sorafenib treatment. Acute hypoxic respiratory failure secondary to pneumonia: - oxygen supplementation as per primary - continue antibiotics per primary Encephalopathy related to cirrhosis and infection: - lactulose for 3 to 4 bowel movements a day - significantly improved Metastatic HCC: - overall poor prognosis - potential candidate for sorafenib oral - will benefit from usp or acute rehab - follow up within 1 week of discharge Please call [phone] with any questions or concerns. Problem List: 1. HCC (hepatocellular carcinoma) 2. Metastatic lung cancer (metastasis from lung to other site) 3. Multifocal pneumonia
[2017-08-22 09:35] LABS: HEMATOCRIT 35.3 % (42-52); WHITE BLOOD CELL COUNT 10.6 /CUMM (4.8-10.8)
--- NOTE | 2017-08-22 10:01 | PN- Pulmonary ---
Subjective HPI/Critical Care Issues: Afebrile on high dose steroids On Pain meds ROS neg Objective Current Medications: Current Medications Sig/Tanya Start time Last Medication Dose Route Stop Time Status Admin Albuterol Sulfate 3 ML Q4P PRN 08/21 1145 AC INH Azithromycin 250 MG DAILY 08/21 1000 AC 08/21 Dextrose/Water 250 ML IV 1129 Ceftazidime 1,000 MG IQ8 08/21 0000 AC 08/22 IV 0816 Dronabinol 5 MG BID 08/20 2200 AC 08/22 PO 0944 Heparin Sodium 5,000 UNIT Q8 08/20 2200 AC 08/22 (Porcine) SC 0659 Hydromorphone HCl 8 MG Q8P PRN 08/21 0845 AC 08/22 PO 0719 Ibuprofen 800 MG TID PRN 08/20 1915 AC PO Insulin Aspart 0 TIDAC 08/21 0800 AC 08/21 SC 1751 Lactulose 30 GM TID 08/20 2200 AC 08/20 PO 2153 Lisinopril 20 MG DAILY 08/21 1000 AC 08/22 PO 0944 Methylprednisolone 40 MG BID 08/20 2200 DC 08/20 IV 2153 Morphine Sulfate 60 MG Q8 08/21 1400 DC PO Morphine Sulfate 60 MG BID 08/21 1104 AC 08/22 PO 0944 Omeprazole 40 MG DAILY AC 08/21 0700 AC 08/22 PO 0659 Prednisone 60 MG DAILY 08/21 1103 AC 08/22 PO 0944 Vancomycin HCl 1,000 MG Q12H 08/21 0700 AC 08/22 Dextrose/Water 250 ML IV 0703 Vital Signs & I&O Last 24 Hrs of Vitals and I&O: Vital Signs Date Time Temp Pulse Resp B/P B/P Pulse O2 O2 Flow FiO2 Mean Ox Delivery Rate 08/22 0944 118/70 08/22 0651 98.0 98 20 118/70 96 Nasal 5.0L Cannula 08/22 0000 Nasal 5.0L Cannula 08/21 2241 98.6 96 20 126/80 94 Nasal 5.0L Cannula 08/21 2223 Nasal 5.0L Cannula 08/21 1845 90 Nasal 6.0L Cannula 08/21 1600 98.0 91 20 110/64 91 Nasal 6.0L Cannula 08/21 1134 Nasal 6.0L Cannula 08/21 1108 112 140/60 Intake & Output 08/22 1600 08/22 0800 08/22 0000 Intake Total 100 Output Total 100 Balance 0 Intake, Oral 100 Output, Urine 100 Patient 172 lb Weight Impression/Plan Impression/Plan Impression/Plan: Physical Exam: General Appearance: awake, alert, thin Head: atraumatic Eyes: Bilateral: PERRL. Respiratory: chest non-tender, decreased breath sounds, crackles , mild distention Cardiovascular: tachycardia Gastrointestinal: distention, tenderness (diffuse) Extremities: no edema Neurologic/Psych: awake, alert and oriented x3, slow response Skin: warm/dry Mr. Echevarria is a 52 yo m with a PMH significant for HCC (diagnosed 2016) s/p VICTOR HUGO TACE with new metastatic lung disease, Hepatitis C s/p 3 months of therapy and alcoholic cirrhosis. SIB Dr. Ibarra for AMS. Sister and brother at bedside. Patient reports severe diffused abdominal pain with increased abdominal distention. He also reports SOB with no alleviating factors. Sister reports patient received chemo in December 2016 but was lost to follow up. Patient has been having abdominal pain due to ascites that required serial paracentesis. He recently came to [place] ED 08/06/17 for a therapeutic paracentesis and a week later went to [place] for a repeat paracentesis. Dr. Westbrook had a discussion with patient in regards to Hospice and patient was reluctant at the time. His sister who help to take care of him. Patient was reffered to palliative care and is currently having issues with his health insurance in regards to approving his pain medications. Patient denies fever, chills, CP, palpitations, nausea, vomiting, recent alcohol use, urinary or bowel symptoms. Since he came in he has sig hypoxia and no fever, Has mild cough but severely dyspneic CT scan reviewed from [facility] 2 weeks ago which showed multiple innumerable lung nodules consistant with met disease. CT done today shows diffuse lung infilrate sugg of prob sig lymphangitic carcinamotosis (unlikely bacterial pna rule out influenza IMPRESSION * Hypoxic resp failure due to alveolar filling process highly sugg of rapidly advancing malignancy with prob lymphangitic carinamatosis ([address] showed muliple innumerable 9 mm lung nodules diffusely through out the lung with sig lymphadenopathy), Diff dx include viral pna and unlikely bacterial pna * Very advanced HCC with cirrhosis with decompensated liver disease * Poor performance status with rapidly progressing cancer REC Pt wishes more pain control, will increase his narcotics Lactulose daily for goal of 3-4 bm daily and also start on senna Cont steroids and reduce the dose to 40 for five days and then taper over 10 days Broad spectrum abx with vanco ceftaz and azithro, if stable change to po ceftin and azithro If he has fever etc will start on tamiflu Prn paracentesis Cxr today Po ppi Prog poor Discussed with the family and pt on the day of admission They wish to continue present care, however if he gets worse they want no intubation and pt is dnr and dni If he becomes more hypoxic and dyspneic will rx with morphine, and prn ativan, no central line or pressors if he starts to deteriorate If the patient gets worse the family wishes palliative care then not now
--- NOTE | 2017-08-22 10:16 | Transfer of Care Summary ---
Hospital Course Course Hospital Course: Mr. Echevarria is a 52 year old man with a PMH significant for HCC (diagnosed 2017 ) s/p drug-eluting bead trans-arterial chemoembolization with new metastatic lung disease, Hepatitis C s/p 3 months of therapy and alcoholic cirrhosis. He was sent in by Dr. Ibarra for altered mental status after being seen in his office on the day of presentation. Patient reported severe diffused abdominal pain with increased abdominal distention and pain. He also reported shortness of breath with no alleviating factors and denied fevers. He was recently admitted to the [facility] ED with abdominal pain. CT scan of the abdomen and pelvis demonstrated likely metastatic hepatocellular carcinoma. He was seen in palliative care clinic and was admitted for abdominal pain. He was started on Dilaudid COPPER MINER BLASTING in the hospital, had 5L therapeutic paracentesis, and subsequent staging scan with CT chest and MRI abdomen. He was noted to have progressive disease in liver and lung. He was discharged on MS Contin 200 mg 3 times a day and Dilaudid 8-16 mg every 4-6 hours as needed. He has not been able to get MS Contin due to insurance. He was unable to take care of himself at home. He was noted to be more confused at home. On presentation to the ED, he was noted to be hypoxic. Vitals on admission blood pressure 102/67, respiratory rate of 22, pulse 93, MAXIMUM TEMPERATURE 99.1 saturating 66% on room air after which she was placed on 40% nonrebreather. Physical Exam at presentation: General Appearance lethargic but arousable and oriented Skin multiple spider angiomatosis HEENT Atraumatic, PERRLA, EOMI, very dry mucous membranes Neck Supple, No JVD Cardiovascular Regular Rate, Normal S1, Normal S2, No Murmurs Lungs b/l ronchi Abdomen Normal Bowel Sounds, Soft, No Tenderness, distended Neurological Normal Speech, Strength at 5/5 X4 Ext, Normal Tone, Sensation Intact, Cranial Nerves 3-12 NL Extremities b/l edema pitting Vascular Normal Pulses, Pulses Symmetrical Labs pertinent for a normal white blood cell count of 10,400, 2 bands H&H of 9.7 /30.2, normal MCV of 82.5 the platelet count of 260,000. Serum chemistries revealed a sodium of 135, potassium of 4.4, bicarbonate of 25, BUN 12 with a creatinine of 0.5. Serum glucose was 132, lactic acid of 2.1. Serum calcium of 8.0 with a total bili of 2.2, AST/ALT 160/91, alkaline phosphatase of 370. ProBNP was 277 and serum albumin was 3.1. Lipase was 83. INR 2.25. ABG revealed respiratory alkalosis with a pH of 7.47, PCO2 30, PO2 of 52. Urine not received. HCV viral load was [id number] back in September 2016. He was taken to have an IR guided paracentesis which removed 2.4L. Chest x-ray showed mild cardiomegaly with interval increased interstitial markings in the middle lung zones consistent with pulmonary edema. A CT chest demonstrated multifocal groundglass opacification suspicious for pneumonia, with no pleural effusion. CT scan evaluation could also be consistent with lymphangitic carcinomatosis. CT scan reviewed from [facility] 2 weeks ago which showed multiple innumerable lung nodules consistant with metastatic disease. CT chest on the day of presentation showed multifocal groundglass opacification suspicious for pneumonia or probable lymphangitic carcinamotosis (unlikely bacterial pna rule out influenza). He had a negative rapid flu, legionella and strep pneumo antigen testing. His urine and blood cultures have been negative so far. He was started on IV broad-spectrum antibiotics with IV vancomycin, ceftizoxime and azithromycin. His pain was controlled with hydromorphone and MS Contin. She was reviewed by supervisor corduroy cutting Dr. Valenzuela and after discussions with the family decision was made that the patient should not get intubation or pressors if he deteriorates and should be made comfortable with palliative care. Significant Procedures: Paracentesis using Indirect ultrasound guidance using a 5 [place] Yueh catheter Assessment/Plan: 1. 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 He want to continue present care, but if he gets deteriorates no central line, no pressors and palliative care * If he is more hypoxic and short of breath consider IV morphine/when necessary for shortness of breath. 2. Cancer Pain management * Continue MS Contin 60 mg twice a day * Continue by mouth hydromorphone 8 mg every 8 hours twice a day We started him on his home doses of tablet Dilaudid 8 milligrams by mouth 3 times a day when necessary 3. Metastatic hepatocellular carcinoma * Follow up with hematology oncology recommendations from Dr. Lee * Prognosis is poor 4. Encephalopathy related to decompensated cirrhosis and infection in patient with past history of Hepatitis C infection * Continue antibiotics * Continue when necessary paracentesis * Continue Lactulose for 3 to 4 bowel movements a day 5. Type 2 diabetes * Accucheks TIDACHS times a day/at bedtime * NovoLog according to the sliding scale.
--- NOTE | 2017-08-22 12:48 | RADIOLOGY REPORT ---
EXAMINATION: XR PORTABLE CHEST CLINICAL INFORMATION: Shortness of breath. Lung metastases. COMPARISON: Chest CT 08/20/2017 and chest x-ray 08/20/2017 TECHNIQUE: Portable frontal view of the chest was obtained. FINDINGS: Stable cardiac silhouette. Ectatic thoracic aorta. Lung volumes are low, however, aeration of the lungs demonstrates mild interval improvement. Patchy bilateral airspace disease is again demonstrated, however, it appears less prominent than imaging from 2 days ago. Small bilateral pleural effusions are suspected. IMPRESSION: Persistent but mildly improved bilateral airspace disease/pulmonary edema.
[2017-08-22 13:53] VITALS: BP 110/80
[2017-08-22 22:39] VITALS: BP 120/80
[2017-08-23 06:49] VITALS: BP 104/70
--- NOTE | 2017-08-23 08:47 | Patient Discharge Instructions ---
Discharge Instructions General Discharge Information You were seen/treated for: Acute hypoxic resp failure HCC with lung metastasis Special Instructions: 1-Please follow up with your PCP in 1 week of discharge 2-Please follow up with your oncologist in 1 week of discharge 3- Please follow up with your airplane designer in 1 week of discharge Diet Continue normal diet: Yes Activity Full Activity/No Limits: Yes Acute Coronary Syndrome Inclusion Criteria At DC or during hospital stay patient has or had the following: ACS DIAGNOSIS No Discharge Core Measures Meds if any: Prescribed or Continued at Discharge Meds if any: NOT Prescribed or Continued at Discharge Congestive Heart Failure Inclusion Criteria At DC or during hospital stay patient has or had the following: CHF DIAGNOSIS No Discharge Core Measures Meds if any: Prescribed or Continued at Discharge Meds if any: NOT Prescribed or Continued at Discharge Cerebrovascular accident Inclusion Criteria At DC or during hospital stay patient has or had the following: CVA/TIA Diagnosis No Discharge Core Measures Meds if any: Prescribed or Continued at Discharge Meds if any: NOT Prescribed or Continued at Discharge Venous thromboembolism Inclusion Criteria VTE Diagnosis No VTE Type NONE VTE Confirmed by (Test) NONE Discharge Core Measures - Per Current guidelines, there needs to be overlap - treatment for the first 5 days of Warfarin therapy. - If discharged on Warfarin prior to 5 days of - overlap therapy, the patient will need to be - assessed for post discharge needs including - *Post discharge parental anticoagulation - *Warfarin and/or parental anticoagulation education - *Follow up date to check INR post discharge At least 5 days overlap therapy as Inpatient No Meds if any: Prescribed or Continued at Discharge Note: Overlap Therapy is Warfarin and Anticoagulant Meds if any: NOT Prescribed or Continued at Discharge
--- NOTE | 2017-08-23 08:48 | Discharge Summary ---
Visit Information Visit Dates Admission Date: 08/20/17 Discharge Date: 08/28/17 Hospital Course Course Attending Physician: Sally Byrne. Primary Care Physician: Iron TAIKavita Layton Hospital Course: Mr. Echevarria is a 52 year old man with a PMH significant for HCC (diagnosed 2017 ) s/p drug-eluting bead trans-arterial chemoembolization with new metastatic lung disease, Hepatitis C s/p 3 months of therapy and alcoholic cirrhosis. He was sent in by Dr. Ibarra for altered mental status after being seen in his office on the day of presentation. Patient reported severe diffused abdominal pain with increased abdominal distention and pain. He also reported shortness of breath with no alleviating factors and denied fevers. He was recently admitted to the [facility] ED with abdominal pain. CT scan of the abdomen and pelvis demonstrated likely metastatic hepatocellular carcinoma. He was seen in palliative care clinic and was admitted for abdominal pain. 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 He was noted to have progressive disease in liver and lung. He was discharged on MS Contin 200 mg 3 times a day and Dilaudid 8-16 mg every 4-6 hours as needed. He has not been able to get MS Contin due to insurance. He was unable to take care of himself at home. He was noted to be more confused at home. On presentation to the ED, he was noted to be hypoxic. Vitals on admission blood pressure 102/67, respiratory rate of 22, pulse 93, MAXIMUM TEMPERATURE 99.1 saturating 66% on room air after which she was placed on 40% nonrebreather. Labs pertinent for a normal white blood cell count of 10,400, 2 bands H&H of 9.7 /30.2, normal MCV of 82.5 the platelet count of 260,000. Serum chemistries revealed a sodium of 135, potassium of 4.4, bicarbonate of 25, BUN 12 with a creatinine of 0.5. Serum glucose was 132, lactic acid of 2.1. Serum calcium of 8.0 with a total bili of 2.2, AST/ALT 160/91, alkaline phosphatase of 370. ProBNP was 277 and serum albumin was 3.1. Lipase was 83. INR 2.25. ABG revealed respiratory alkalosis with a pH of 7.47, PCO2 30, PO2 of 52. Urine not received. HCV viral load was [id number] back in September 2016. He was taken to have an IR guided paracentesis which removed 2.4L. Chest x-ray showed mild cardiomegaly with interval increased interstitial markings in the middle lung zones consistent with pulmonary edema. A CT chest demonstrated multifocal groundglass opacification suspicious for pneumonia, with no pleural effusion. CT scan evaluation could also be consistent with lymphangitic carcinomatosis. CT scan reviewed from [facility] 2 weeks ago which showed multiple innumerable lung nodules consistant with metastatic disease. CT chest on the day of presentation showed multifocal groundglass opacification suspicious for pneumonia or probable lymphangitic carcinamotosis (unlikely bacterial pna rule out influenza). He had a negative rapid flu, legionella and strep pneumo antigen testing. His urine and blood cultures have been negative so far. -08/23/17: Hematemesis with vomiting bright red blood with 7-8 clots, accompanied by melena vital signs were stable, H&H stable, patient refused EGD He was started on IV broad-spectrum antibiotics with IV vancomycin, ceftizoxime and azithromycin. His pain was controlled with hydromorphone and MS Contin. She was reviewed by windows technical specialist Dr. Valenzuela and after discussions with the family decision was made that the patient should not get intubation or pressors if he deteriorates and should be made comfortable with palliative care. Significant Procedures: Paracentesis using Indirect ultrasound guidance using a 5 Greek Yueh catheter Assessment/Plan: 1. 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 He want to continue present care, but if he gets deteriorates no central line, no pressors and palliative care * If he is more hypoxic and short of breath consider IV morphine/when necessary for shortness of breath. 2. Cancer Pain management * Treated with MS Contin 75 mg twice a day , PO hydromorphone 8 mg every 8 hours twice a day, IV morphine 60 mg every 2 when necessary 3. Metastatic hepatocellular carcinoma * Follow up with hematology oncology recommendations from Dr. Lee * Prognosis is poor 4. Encephalopathy related to decompensated cirrhosis and infection in patient with past history of Hepatitis C infection * was treated with antibiotics mentioned above * PRN paracentesis * was kept on Lactulose for 3 to 4 bowel movements a day 5. Type 2 diabetes * Accucheks TIDACHS times a day/at bedtime * NovoLog according to the sliding scale. Comfort measures DVT prophylaxis with sc heparin Allergies: Coded Allergies: NO KNOWN ALLERGIES (10/29/12) Disposition Summary Disposition Principal Diagnosis: Acute hypoxic resp failure due to lung metastasis Additional Diagnosis: HCC Diabetes Discharge Disposition: SNF Discharge Instructions General Discharge Information Code Status: Do Not Resucitate/Intubat Patient's Diet: Regular diet Patient's Activity: As tolerated Follow-Up Instructions/Appts: 1- lease follow up with your PCP in 1 week of discharge 2- please follow up with your oncologist in 1 week of discharge 3- please follow up with your pukmonolgist in 1 week of discharge Medications at Discharge Discharge Medications: Stop taking the following medications: Hydromorphone HCl (Dilaudid) 8 MG TABLET ORAL THREE TIMES DAILY Continue taking these medications: Sitagliptin Phosphate (Januvia) 100 MG TABLET 1 Tablet ORAL DAILY Comments: NOT GIVEN Lisinopril (Zestril) 20 MG TABLET 1 Tablet ORAL DAILY Comments: Last Taken: 08/28/17 Time: 915 AM Esomeprazole (Nexium) 40 MG CAPSULE.DR 1 Capsule ORAL DAILY Qty = 90 Comments: NOT GIVEN Ibuprofen (Ibuprofen) 800 MG TABLET 1 Tablet ORAL THREE TIMES DAILY as needed for pain Qty = 60 Comments: Last Taken: 08/26/17 Time: 815 PM Morphine Sulfate (Morphine Sulfate ER) 15 MG TABLET.ER 6 Tablet ORAL THREE TIMES DAILY as needed for pain Comments: Last Taken: 08/28/17 Time: 915 AM Lactulose (Lactulose) 10 GRAM/15 ML SOLUTION 30 Milliliters ORAL THREE TIMES DAILY Comments: Last Taken: 08/26/17 Time: 430 PM Dronabinol (Marinol) 5 MG CAPSULE 1 Capsule ORAL TWICE DAILY Comments: Last Taken: 08/28/17 Time: 915 AM Start taking the following new medications: Hydromorphone HCl (Hydromorphone HCl) 2 MG TABLET 4 Milligram ORAL EVERY 2 HOURS NEEDED as needed for PAIN SCALE 7-10 ( SEVERE) Qty = 30 No Refills Copies To: Kavita Perdue APRN
--- NOTE | 2017-08-23 09:14 | PN- Housestaff ---
[facility]: Subjective Follow-up For: Hypoxic respiratory failure secondary to lymphangitic carcinomatosis/metastatic lung cancer vs multilobar pneumonia. Metastatic hepatocellular carcinoma Subjective: No overnight events. Patient remained afebrile overnight. Seen and examined this morning. He is using 4 L of oxygen and maintaining saturation 92%. Patient reported having abdominal pain 8/10. Patient also reported having dry cough and he is not able to bring any phlegm. He denied any chest pain, palpitation, nausea, vomiting, chills, fever, melena and dysuria. Review of Systems Constitutional: Reports: weakness. EENTM: Reports: no symptoms. Cardiovascular: Reports: no symptoms. Respiratory: Reports: cough. Gastrointestinal: Reports: abdominal pain. Genitourinary: Reports: no symptoms. Musculoskeletal: Reports: see HPI. Neurological/Psychological: Reports: no symptoms. Objective Last 24 Hrs of Vital Signs/I&O Vital Signs Date Time Temp Pulse Resp B/P B/P Pulse O2 O2 Flow FiO2 Mean Ox Delivery Rate 08/23 0955 90 118/62 08/23 0649 98.6 68 18 104/70 92 Nasal 4.0L Cannula 08/23 0000 93 Nasal 5.0L Cannula 08/22 2239 98.1 88 19 120/80 93 Nasal Cannula 08/22 1600 93 Nasal 5.0L Cannula 08/22 1353 98.7 77 18 110/80 98 08/22 1220 93 Nasal 4.0L Cannula Intake & Output 08/23 1600 08/23 0800 08/23 0000 Intake Total 900 580 Output Total Balance 900 580 Intake, IV 300 300 Intake, Oral 600 280 Patient 176 lb Weight Weight Bed scale Measurement Method Physical Exam General Appearance: Alert, Oriented X3, Cooperative Skin Temp/Moisture Exam: Warm/Dry HEENT: Atraumatic, PERRLA, EOMI Neck: Supple Cardiovascular: Normal S1, Normal S2 Lungs: Clear to Auscultation, Decreased breath sounds Abdomen: tenderness in right hypochondrium and lumber region, distension Neurological: Normal Speech, Strength at 5/5 X4 Ext, Normal Tone Extremities: No Edema Assessment/Plan Assessment: 56-year-old male with a past medical history of hepatocellular carcinoma diagnosed in 2017 status post VICTOR HUGO TACE with new metastatic lung disease, hep C 1Astatus post 3 months of therapy and alcoholic cirrhosis, hyperlipidemia, diabetes and GERD was sent by Dr. Florentino for altered mental status.He was taken to have an IR guided paracentesis which removed 2.4L. He was admitted to the ICU ,He was started on IV broad-spectrum antibiotics with IV vancomycin, ceftizoxime and azithromycin. His pain was controlled with hydromorphone and MS Contin. Hypoxic respiratory failure: Differential diagnoses includes, lymphangitic carcinomatosis/rapidly advancing metastatic lung cancer vs multilobar pneumonia -blood and urine cultures were negative -His flu swab has been negative but if he spikes fever can start empiric Tamiflu as a viral pneumonia is a possible differential diagnosis -Continue IV vancomycin/ceftaz/azithromycin -Decrease prednisone to 40 mg daily for 5 days. -Discussion with the patient about goals of care is already done and according to his wishes. He want to continue present care, but if he gets deteriorates no central line, no pressors and palliative care -If he is more hypoxic and short of breath consider IV morphine/when necessary for shortness of breath. Cancer Pain management: Patient is requesting to increase his pain meds -Continue MS Contin 60 mg twice a day -Continue by mouth hydromorphone 8 mg every 8 hours Metastatic hepatocellular carcinoma: -Follow up with hematology in 1 week of discharge to discuss sorafenib treatment. With -Prognosis is poor Encephalopathy related to decompensated cirrhosis and infection in patient with past history of Hepatitis C infection: Improving -Continue antibiotics -When necessary paracentesis -Continue Lactulose for 3 to 4 bowel movements a day. Type 2 diabetes: -Accucheks TIDACHS times a day/at bedtime -NovoLog according to the sliding scale. CODE STATUS: DNR/DNI DVT prophylaxis: subcutaneous heparin Problem List: 1. Hepatocellular carcinoma metastatic to left lung 2. Multifocal pneumonia 3. Ascites Pain Ratin Pain Location: abdomen Pain Goal: Pain 4 or less Pain Plan: pain pathway Tomorrow's Labs & Rationales: cbc/bep Sally Ledesma MD 08/23/17 1231: Attending MD Review Statement Attending Statement Attending MD Statement: examined this patient, discuss w/resident/PA/LAND MOBILE RADIO TECHNICIAN, agreed w/resident/PA/LAND MOBILE RADIO TECHNICIAN, reviewed EMR data (avail) Attending Assessment/Plan: 52M PMH HCC (diagnosed 2016) s/p VICTOR HUGO TACE with new metastatic lung disease, Hepatitis C s/p 3 months of therapy and alcoholic cirrhosis admitted for respiratory failure, hypoxia, dyspnea, malignant ascites. Patient has improved with Prednisone and broad spectrum antibiotics. His respiratory failure is likely multifactorial and primarily related to lung metastasis with lymphangitic spread. He is s/p therapeutic paracentesis. He is still short of breath with exertion today, but overall feels better. Appetite is poor but improving. Abdomen is soft and without evidence of ascites. He is having normal BMs. His pain is generally 6/10 but he is ok with this and does not want increased pain med doses right now. 1. Acute hypoxemic respiratory failure secondary to lung metastases 2. Stage 4 hepatocellular carcinoma 3. Lymphangitic carcinamatosis 4. Chronic pain secondary to malignancy 5. Alcoholic/HCV cirrhosis Plan - Continue on general medicine - Continue current antibiotics - Continue Prednisone 40mg x 5 days - Would continue MS-contin 60mg BID - Continue PRN Dilaudid - Continue lactulose goal 3-4 BM/day - Follow pulmonary and oncology recommendations - DVT PPx - DNR/DNI
[2017-08-23 10:15] LABS: HEMATOCRIT 31.8 % (42-52); MEAN CORPUSCULAR HGB 26.8 PG (27.0-31.0); MEAN CORPUSCULAR HGB CONC 32.2 G/DL (33.0-37.0); MEAN PLATELET VOLUME 8.9 FL (7.4-10.4); PLATELET COUNT 240 /CUMM (130-400); RBC DISTRIBUTION WIDTH 20.8 % (11.5-14.5); RED BLOOD CELL CT 3.82 /CUMM (4.70-6.10); WHITE BLOOD CELL COUNT 9.9 /CUMM (4.8-10.8)
[2017-08-23 14:31] VITALS: BP 122/80
--- NOTE | 2017-08-23 20:44 | Event Note ---
Event Note Event Note: Around 8:50 PM rapid response was called. We went into patient's room and he was in the bathroom vomiting bright red blood with 7-8 clots. According to nurse patient was complaining of nausea and burning sensation in his stomach before this event. He also desaturated earlier and his oxygen saturation was bumped up from 3 L to 5 L. Stat vitals were done. Blood pressure 100/60, pulse 113, temperature 97.8, oxygen saturation 92% on 5 L. According to patient he is "feeling terrible". After vomiting he had a loose bowel movement and toilet bowl was full of bright red blood. Stat CBC, type and cross were ordered. After he came out of the bathroom and lay on bed his vitals were repeated. Blood pressure 102/62, heart rate 98, temperature 97. He was complaining of dizziness and pain in his epigastric area. Of note patient has past medical history of metastatic hepatocellular carcinoma and decompensated liver cirrhosis. He is being admitted because of hypoxic respiratory failure secondary to lymphangitic carcinomatosis and pneumonia. He is on IV antibiotics (Vanco, ceftaz and azithromycin). He was initially admitted to ICU and goals of care discussion was done with the family and patient by extractor loader and unloader. They decided to continue present care and refused intubation, central line or pressors. It was decided that if patient gets worse they will go for palliative care. Given all his history he might be bleeding from esophageal or gastric varices. It was explained to patient and his family and also discussed that how aggressive they want to be. Patient was asking about other treatment options. He was explained that he might have to undergo endoscopy and clipping of bleeding vessel under general anesthesia and there is a possibility that it would be hard to extubate him after the procedure. Even if he gets this procedure it's not gonna improve his prognosis and this episode can happen Again. Family was inclining more toward comfort and palliation. Initially patient was adamant to get that procedure but after family discussion he was okay with the comfort measures. Family wanted to see him comfortable. will monitor CBC closely. Goal hemoglobin >8. He is already on oral PPI. He was given 1 loading dose of IV PPI. Right now we will continue treatment for pneumonia. In the morning we can further discuss with attending whether to continue antibiotic therapy or not. CODE STATUS was changed to comfort measures. Morphine was ordered for pain management. stat H/H 9.2/28.3 repeat after 3 hours 9.4/28.9
[2017-08-23 20:45] VITALS: BP 100/60
[2017-08-23 22:00] LABS: MEAN CORPUSCULAR VOLUME 83.3 FL (80.0-94.0); MEAN PLATELET VOLUME 9.3 FL (7.4-10.4)
[2017-08-23 22:08] LABS: HEMATOCRIT 28.3 % (42-52); MEAN CORPUSCULAR HGB CONC 32.4 G/DL (33.0-37.0); PLATELET COUNT 308 /CUMM (130-400); RBC DISTRIBUTION WIDTH 20.9 % (11.5-14.5); WHITE BLOOD CELL COUNT 11.3 /CUMM (4.8-10.8)
[2017-08-24 01:01] LABS: HEMATOCRIT 28.9 % (42-52)
[2017-08-24 01:07] LABS: MEAN CORPUSCULAR HGB 26.7 PG (27.0-31.0); MEAN CORPUSCULAR HGB CONC 32.5 G/DL (33.0-37.0); MEAN CORPUSCULAR VOLUME 82.1 FL (80.0-94.0); MEAN PLATELET VOLUME 9.2 FL (7.4-10.4); PLATELET COUNT 276 /CUMM (130-400); RED BLOOD CELL CT 3.52 /CUMM (4.70-6.10); WHITE BLOOD CELL COUNT 13.8 /CUMM (4.8-10.8)
[2017-08-24 06:56] VITALS: BP 94/58
--- NOTE | 2017-08-24 13:34 | PN- Att Addend ---
Attending Addendum Attending Brief Note 52M PMH HCC (diagnosed 2016) s/p VICTOR HUGO TACE with new metastatic lung disease, Hepatitis C s/p 3 months of therapy and alcoholic cirrhosis admitted for respiratory failure, hypoxia, dyspnea, malignant ascites. Patient has improved with Prednisone and broad spectrum antibiotics. His respiratory failure is likely multifactorial and primarily related to lung metastasis with lymphangitic spread. He is s/p therapeutic paracentesis. Overnight had an episode of hematemesis. Decision was made by patient and family to not pursue endoscopy and to focus on comfort measures. Patient appears uncomfortable and reports diffuse pain. He appears ill. AFVSS Moderate distress NCAT MMM Supple RRR CTAB Soft, diffusely tender No c/c/e Pulses intact A&Ox3 no focal deficits Current Medications Sig/Tanya Start time Last Medication Dose Route Stop Time Status Admin Albuterol Sulfate 3 ML Q4P PRN 08/21 1145 AC INH Azithromycin 500 MG Q24H 08/22 1200 AC 08/24 Dextrose/Water 250 ML IV 1240 Ceftazidime 1,000 MG IQ8 08/21 0000 AC 08/24 IV 0748 Dronabinol 5 MG BID 08/20 2200 AC 08/24 PO 1057 Heparin Sodium 5,000 UNIT Q8 08/20 2200 AC 08/23 (Porcine) SC 1417 Hydromorphone HCl 8 MG Q8P PRN 08/21 0845 DC 08/23 PO 2159 Ibuprofen 800 MG TID PRN 08/20 1915 AC 08/23 PO 0334 Insulin Aspart 0 TIDAC 08/21 0800 AC 08/24 SC 1240 Lactulose 30 GM TID 08/20 2200 AC 08/23 PO 1556 Lisinopril 20 MG DAILY 08/21 1000 AC 08/23 PO 0955 Lorazepam 0.5 MG Q4P PRN 08/24 0745 AC IV Morphine Sulfate 4 MG Q2 HRS NEEDED PRN 08/24 0745 AC 08/24 IV 1106 Morphine Sulfate 0.5 MG ONCE ONE 08/24 0615 DC 08/24 IV 08/24 0616 0625 Morphine Sulfate 4 MG Q4 08/24 0200 DC 08/24 IV 0446 Morphine Sulfate 1 MG ONCE ONE 08/24 0045 DC 08/24 IV 08/24 0046 0043 Morphine Sulfate 2 MG Q4 HRS NEEDED PRN 08/23 2345 DC IV Morphine Sulfate 60 MG BID 08/21 1104 DC 08/23 PO 2203 Omeprazole 40 MG DAILY AC 08/21 0700 AC 08/23 PO 0634 Pantoprazole Sodium 40 MG ONCE ONE 08/24 0615 DC 08/24 IV 08/24 0616 0625 Pantoprazole Sodium 40 MG ONCE ONE 08/24 0045 DC IV 08/24 0046 Prednisone 40 MG DAILY 08/23 1000 AC 08/24 PO 08/27 1001 1057 Vancomycin HCl 1,000 MG Q12 08/23 1000 AC 08/24 Dextrose/Water 250 ML IV 1103 Laboratory Tests 08/24 08/24 08/24 0815 0600 0040 Chemistry Sodium (137 - 145 mmol/L) 139 Potassium (3.5 - 5.1 mmol/L) 4.9 Chloride (98 - 107 mmol/L) 106 Carbon Dioxide (22 - 30 mmol/L) 24 Anion Gap (5 - 16) 10 BUN (9 - 20 mg/dL) 27 H Creatinine (0.7 - 1.2 mg/dL) 0.6 L Estimated GFR (>60 ml/min) > 60 BUN/Creatinine Ratio (7 - 25 %) 45.0 H Hematology CBC w Diff Cancelled MAN DIFF ORDERED WBC (4.8 - 10.8 /CUMM) Cancelled 13.8 H RBC (4.70 - 6.10 /CUMM) Cancelled 3.52 L Hgb (14.0 - 18.0 G/DL) Cancelled 9.4 L Hct (42 - 52 %) Cancelled 28.9 L MCV (80.0 - 94.0 FL) Cancelled 82.1 MCH (27.0 - 31.0 PG) Cancelled 26.7 L MCHC (33.0 - 37.0 G/DL) Cancelled 32.5 L RDW (11.5 - 14.5 %) Cancelled 21.0 H Plt Count (130 - 400 /CUMM) Cancelled 276 MPV (7.4 - 10.4 FL) Cancelled 9.2 Segmented Neutrophils (42.2 - 75.2 %) 92 H Band Neutrophils (0.0 - 5.0 %) 4 Lymphocytes (20.5 - 51.1 %) 3 L Monocytes (1.7 - 9.3 %) 1 L Platelet Estimate (ADEQUATE) ADEQUATE Polychromasia 1+ Hypochromic-Microcytic 2+ Poikilocytosis 1+ Target Cells 2+ 08/23 2104 Hematology CBC w Diff MAN DIFF ORDERED WBC (4.8 - 10.8 /CUMM) 11.3 H RBC (4.70 - 6.10 /CUMM) 3.40 L Hgb (14.0 - 18.0 G/DL) 9.2 L Hct (42 - 52 %) 28.3 L MCV (80.0 - 94.0 FL) 83.3 MCH (27.0 - 31.0 PG) 27.0 MCHC (33.0 - 37.0 G/DL) 32.4 L RDW (11.5 - 14.5 %) 20.9 H Plt Count (130 - 400 /CUMM) 308 MPV (7.4 - 10.4 FL) 9.3 Segmented Neutrophils (42.2 - 75.2 %) 81 H Band Neutrophils (0.0 - 5.0 %) 5 Lymphocytes (20.5 - 51.1 %) 8 L Monocytes (1.7 - 9.3 %) 6 Platelet Estimate (ADEQUATE) ADEQUATE Polychromasia 1+ Hypochromic-Microcytic 1+ Anisocytosis 2+ Target Cells 1+ Vital Signs Date Time Temp Pulse Resp B/P B/P Pulse O2 O2 Flow FiO2 Mean Ox Delivery Rate 08/24 0656 98.6 96 18 94/58 98 Nasal Cannula 08/24 0000 92 Nasal 5.0L Cannula 08/23 2044 97.8 113 19 100/60 92 Nasal Cannula 08/23 2024 93 Nasal 4.0L Cannula 08/23 1600 Nasal 5.0L Cannula 08/23 1431 98.0 98 20 122/80 92 Intake & Output 08/24 1600 08/24 0800 08/24 0000 Intake Total 210 480 Output Total 75 Balance 210 405 Intake, IV 10 Intake, Oral 200 480 Number 2 Bowel Movements Output, 75 Emesis 1. Acute hypoxemic respiratory failure secondary to lung metastases 2. Stage 4 hepatocellular carcinoma 3. Lymphangitic carcinamatosis 4. Chronic pain secondary to malignancy 5. Alcoholic/HCV cirrhosis Plan - Continue on general medicine - Continue current antibiotics - Continue Prednisone 40mg x 5 days - Increase MS-Contin to 75mg BID - Continue PRN Dilaudid - Continue lactulose goal 3-4 BM/day - Follow pulmonary and oncology recommendations - Comfort care. Poor prognosis.
[2017-08-24 14:02] VITALS: BP 101/60
[2017-08-24 22:07] VITALS: BP 116/80
--- NOTE | 2017-08-25 07:10 | PN- Housestaff ---
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 -Metastatic hepatocellular carcinoma - Hematemsis Subjective: pt was seen and examined deanna bed side , he is still c/o of sever pain 9/10 in severity which improves with pain meds, denies vomiting or diarrhea, or fever or chillis Review of Systems Constitutional: Reports: no symptoms. Cardiovascular: Reports: no symptoms. Respiratory: Reports: no symptoms. Gastrointestinal: Reports: vomiting. Denies: abdominal pain, constipation, diarrhea, melena. Genitourinary: Denies: no symptoms. Musculoskeletal: Denies: no symptoms. Objective Last 24 Hrs of Vital Signs/I&O Vital Signs Date Time Temp Pulse Resp B/P B/P Pulse O2 O2 Flow FiO2 Mean Ox Delivery Rate 08/25 0800 Nasal 5.0L Cannula 08/25 0720 98.8 92 20 114/68 93 Nasal 5.0L Cannula 08/25 0600 Nasal 5.0L Cannula 08/24 2207 98.5 100 20 116/80 96 08/24 2200 Nasal 5.0L Cannula 08/24 1402 98.7 81 18 101/60 93 Intake & Output 08/25 1600 08/25 0800 08/25 0000 Intake Total 300 500 Output Total Balance 300 500 Intake, IV 300 Intake, Oral 300 200 Physical Exam General Appearance: Alert, Oriented X3, Cooperative, lethargic and tired Skin: No Rashes, No Breakdown, No Significant Lesion HEENT: Atraumatic, PERRLA, EOMI, jaundice Cardiovascular: Normal S1, Normal S2, No Murmurs Lungs: decreaseed breath sounds Abdomen: Normal Bowel Sounds, distended and tender right hypochondrium Extremities: No Edema Assessment/Plan Assessment: 56-year-old male with a past medical history of hepatocellular carcinoma diagnosed in 2017 status post VICTOR HUGO TACE with new metastatic lung disease, hep C 1Astatus post 3 months of therapy and alcoholic cirrhosis, hyperlipidemia, diabetes and GERD was sent by Dr. Florentino for altered mental status.He was taken to have an IR guided paracentesis which removed 2.4L. He was admitted to the ICU ,He was started on IV broad-spectrum antibiotics with IV vancomycin, ceftizoxime and azithromycin. His pain was controlled with hydromorphone and MS Contin. Hypoxic respiratory failure: Differential diagnoses includes: lymphangitic carcinomatosis/rapidly advancing metastatic lung cancer vs multilobar pneumonia -blood and urine cultures were negative -His flu swab has been negative but if he spikes fever can start empiric Tamiflu as a viral pneumonia is a possible differential diagnosis -DC Vancomycin -Continue IV ceftaz/azithromycin -Decrease prednisone to 40 mg daily for 5 days. -Discussion with the patient about goals of care is already done and according to his wishes. He want to continue present care, but if he gets deteriorates no central line, no pressors and palliative care -If he is more hypoxic and short of breath consider IV morphine/when necessary for shortness of breath. Cancer Pain management: Patient is requesting to increase his pain meds -Continue MS Contin 75 mg twice a day -Increase Morphine to 6mg IV Q 2 PRN Metastatic hepatocellular carcinoma: -Follow up with hematology in 1 week of discharge to discuss sorafenib treatment. With -Prognosis is poor Encephalopathy related to decompensated cirrhosis and infection in patient with past history of Hepatitis C infection: Improving -Continue antibiotics -When necessary paracentesis -Continue Lactulose for 3 to 4 bowel movements a day. Type 2 diabetes: -Accucheks TIDACHS times a day/at bedtime -NovoLog according to the sliding scale. CODE STATUS: Comfort measure DVT prophylaxis: subcutaneous heparin Problem List: 1. Hepatocellular carcinoma metastatic to left lung Pain Ratin Pain Location: abdomen Pain Goal: Pain 4 or less Pain Plan: pain pathway Tomorrow's Labs & Rationales: cbc bep DVT/Prophylaxis: mechanical, pharmacological Sally Ledesma MD 08/25/17 1109: Attending MD Review Statement Attending Statement Attending MD Statement: examined this patient, discuss w/resident/PA/ULTIMATE HOOPS SCOREBOARD OPERATOR, agreed w/resident/PA/ULTIMATE HOOPS SCOREBOARD OPERATOR, reviewed EMR data (avail) Attending Assessment/Plan: 52M PMH HCC (diagnosed 2017) s/p VICTOR HUGO TACE with new metastatic lung disease, Hepatitis C s/p 3 months of therapy and alcoholic cirrhosis admitted for respiratory failure, hypoxia, dyspnea, malignant ascites. Patient has improved with Prednisone and broad spectrum antibiotics. His respiratory failure is likely multifactorial and primarily related to lung metastasis with lymphangitic spread. He is s/p therapeutic paracentesis. Over the weekendhad an episode of hematemesis. Decision was made by patient and family to not pursue endoscopy and to focus on comfort measures. Patient appears uncomfortable and reports diffuse pain. He appears ill. 1. Acute hypoxemic respiratory failure secondary to lung metastases 2. Stage 4 hepatocellular carcinoma 3. Lymphangitic carcinamatosis 4. Chronic pain secondary to malignancy 5. Alcoholic/HCV cirrhosis Plan - Continue on general medicine - Continue current antibiotics - Continue Prednisone 40mg x 5 days - Continue MS-contin 75mg BID - Increase Morphine IV to 6mg q2h PRN, monitor for sedation - Continue lactulose goal 3-4 BM/day - Follow pulmonary and oncology recommendations - Comfort care. Poor prognosis.
[2017-08-25 07:20] VITALS: BP 114/68
--- NOTE | 2017-08-25 07:47 | PN- Oncology ---
Subjective Subjective: Patient had episodes of hematemesis over the weekend. Per EMR, family and patient have elected to not pursue invasive intervention including endoscope. He wants to pursue treating his symptoms for now and let thing "settle down." He continues to have significant pain in the abdomen and back. Review of Systems Constitutional: Reports: malaise, weakness. Cardiovascular: Denies: chest pain. Respiratory: Reports: short of breath. Denies: hemoptysis. Gastrointestinal: Reports: see HPI, abdominal pain, bloody stool, vomiting. Musculoskeletal: Reports: back pain, joint pain. Neurological/Psychological: Reports: anxiety. Hematologic/Endocrine: Reports: bleeding. All Other Systems: Reviewed and Negative Objective Vital Signs and I&Os Vital Signs Date Time Temp Pulse Resp B/P B/P Pulse O2 O2 Flow FiO2 Mean Ox Delivery Rate 08/25 0720 98.8 92 20 114/68 93 Nasal 5.0L Cannula 08/25 0600 Nasal 5.0L Cannula 08/24 2206 98.5 100 20 116/80 96 08/24 2200 Nasal 5.0L Cannula 08/24 1402 98.7 81 18 101/60 93 Intake & Output 08/25 0800 08/25 0000 08/24 1600 08/24 0800 08/24 0000 08/23 1600 Intake Total 387 323 4630 210 480 600 Output Total 75 Balance 464 185 5888 210 405 600 Intake, IV 300 500 10 Intake, Oral 300 200 500 200 480 600 Number 2 Bowel Movements Output, 75 Emesis Physical Exam: General Appearance: awake, alert, thin, on 5L NC Head: atraumatic Eyes: Bilateral: scelra anicteric Respiratory: chest non-tender, decreased breath sounds, crackles Cardiovascular: tachycardia Gastrointestinal: distention, tenderness (diffuse) Extremities: no edema Neurologic/Psych: awake, alert and oriented x3, slow response Skin: warm/dry Current Medications: Current Medications Sig/Tanya Start time Last Medication Dose Route Stop Time Status Admin Albuterol Sulfate 3 ML Q4P PRN 08/21 1145 AC INH Azithromycin 500 MG Q24H 08/22 1200 AC 08/24 Dextrose/Water 250 ML IV 1240 Ceftazidime 1,000 MG IQ8 08/21 0000 DC 08/24 IV 1741 Dronabinol 5 MG BID 08/20 2200 AC 08/24 PO 2137 Heparin Sodium 5,000 UNIT Q8 08/20 2199 AC 08/23 (Porcine) SC 1417 Ibuprofen 800 MG TID PRN 08/20 1915 AC 08/23 PO 0334 Insulin Aspart 0 TIDAC 08/21 0800 AC 08/24 SC 1742 Lactulose 30 GM TID 08/20 2200 AC 08/23 PO 1556 Lisinopril 20 MG DAILY 08/21 1000 AC 08/23 PO 0955 Lorazepam 0.5 MG Q4P PRN 08/24 0745 AC IV Morphine Sulfate 60 MG BID 08/24 2199 AC 08/24 PO 2138 Morphine Sulfate 15 MG BID 08/24 2200 AC 08/24 PO 2139 Morphine Sulfate 4 MG Q2 HRS NEEDED PRN 08/24 0745 AC 08/25 IV 0618 Omeprazole 40 MG DAILY AC 08/21 0700 AC 08/23 PO 0634 Prednisone 40 MG DAILY 08/23 1000 AC 08/24 PO 08/27 1001 1057 Vancomycin HCl 1,000 MG Q12 08/23 1000 AC 08/24 Dextrose/Water 250 ML IV 2137 Results Last 24 Hours of Lab Results: Laboratory Tests 08/24 0815 Chemistry Sodium (137 - 145 mmol/L) 139 Potassium (3.5 - 5.1 mmol/L) 4.9 Chloride (98 - 107 mmol/L) 106 Carbon Dioxide (22 - 30 mmol/L) 24 Anion Gap (5 - 16) 10 BUN (9 - 20 mg/dL) 27 H Creatinine (0.7 - 1.2 mg/dL) 0.6 L Estimated GFR (>60 ml/min) > 60 BUN/Creatinine Ratio (7 - 25 %) 45.0 H Assessment/Plan Assessment/Recommendations: Mr. Echevarria is a 52 year-old male male with cirrhosis of the liver, alcohol abuse, hepatitis C status post 3 months of therapy, DM, and HCC s/p VICTOR HUGO TACE procedure on 12/31/2016 who presented to the ED [facility] for AMS, intractable pain, and ascites. Pain has been progressive since discharge from [facility] and with increasing confusion. He was found to have multifocal pneumonia on admission. He is currently on antibiotics. Over the weekend, he was noted to have hematemesis. He likely has esophageal varices with his decompensated liver disease. He would benefit from EGD. On discussion with the patient and family, he had declined to have any intervention including EGD. He wants to let things settle down and not do anything at the moment. He wants to treat the pain for now. Hematemesis: - would benefit from EGD, patient declined for now - discontinue heparin Acute hypoxic respiratory failure secondary to pneumonia: - continue antibiotic and oxygen supplementation Encephalopathy related to cirrhosis and infection: - lactulose for 3 to 4 bowel movements a day Metastatic HCC: - overall poor prognosis - potential candidate for sorafenib oral if clinically improved - will benefit from snf or acute rehab - follow up within 1 week of discharge Please call [phone] with any questions or concerns. Problem List: 1. Cirrhosis of liver 2. Metastatic lung cancer (metastasis from lung to other site) 3. HCC (hepatocellular carcinoma) 4. Multifocal pneumonia
[2017-08-25 14:07] VITALS: BP 100/60
--- NOTE | 2017-08-25 14:19 | PN- Pulmonary ---
Subjective HPI/Critical Care Issues: Still in pain events and data reviewed Objective Current Medications: Current Medications Sig/Tanya Start time Last Medication Dose Route Stop Time Status Admin Albuterol Sulfate 3 ML Q4P PRN 08/21 1145 DC INH Azithromycin 500 MG Q24H 08/22 1200 AC 08/25 Dextrose/Water 250 ML IV 1214 Ceftazidime 1,000 MG Q8H 08/25 0900 AC 08/25 IV 1035 Ceftazidime 1,000 MG IQ8 08/21 0000 DC 08/24 IV 1741 Dronabinol 5 MG BID 08/20 2200 AC 08/25 PO 1031 Heparin Sodium 5,000 UNIT Q8 08/20 2200 AC 08/23 (Porcine) SC 1417 Hydromorphone HCl 4 MG Q2 HRS NEEDED PRN 08/25 1415 AC PO Ibuprofen 800 MG TID PRN 08/20 1915 AC 08/23 PO 0334 Insulin Aspart 0 TIDAC 08/21 0800 AC 08/25 SC 1216 Lactulose 20 GM TID 08/25 1600 AC PO Lactulose 30 GM TID 08/20 2200 DC 08/23 PO 1556 Lisinopril 20 MG DAILY 08/21 1000 AC 08/25 PO 1033 Lorazepam 0.5 MG Q4P PRN 08/24 0745 AC IV Morphine Sulfate 6 MG Q2 HRS NEEDED PRN 08/25 1145 DC 08/25 IV 1312 Morphine Sulfate 60 MG BID 08/24 2200 AC 08/25 PO 1030 Morphine Sulfate 15 MG BID 08/24 2200 AC 08/25 PO 1031 Morphine Sulfate 4 MG Q2 HRS NEEDED PRN 08/24 0745 DC 08/25 IV 1051 Omeprazole 40 MG DAILY AC 08/21 0700 AC 08/23 PO 0634 Prednisone 40 MG DAILY 08/23 1000 AC 08/25 PO 08/27 1001 1032 Vancomycin HCl 1,000 MG Q12 08/23 1000 AC 08/25 Dextrose/Water 250 ML IV 1038 Vital Signs & I&O Last 24 Hrs of Vitals and I&O: Vital Signs Date Time Temp Pulse Resp B/P B/P Pulse O2 O2 Flow FiO2 Mean Ox Delivery Rate 08/25 1407 97.5 86 19 100/60 95 08/25 1356 Nasal 5.0L Cannula 08/25 1347 Nasal 5.0L Cannula 08/25 1235 96 Nasal 5.0L Cannula 08/25 0800 Nasal 5.0L Cannula 08/25 0720 98.8 92 20 114/68 93 Nasal 5.0L Cannula 08/25 0600 Nasal 5.0L Cannula 08/247 98.5 100 20 116/80 96 08/24 2200 Nasal 5.0L Cannula Intake & Output 08/25 1600 08/25 0800 08/25 0000 Intake Total 300 500 Output Total Balance 300 500 Intake, IV 300 Intake, Oral 300 200 Impression/Plan Impression/Plan Impression/Plan: Physical Exam: General Appearance: awake, alert, thin Head: atraumatic Eyes: Bilateral: PERRL. Respiratory: chest non-tender, decreased breath sounds, crackles , mild distention Cardiovascular: tachycardia Gastrointestinal: distention, tenderness (diffuse) Extremities: no edema Neurologic/Psych: awake, alert and oriented x3, slow response Skin: warm/dry Mr. Echevarria is a 52 yo m with a PMH significant for HCC (diagnosed 2016) s/p VICTOR HUGO TACE with new metastatic lung disease, Hepatitis C s/p 3 months of therapy and alcoholic cirrhosis. SIB Dr. Ibarra for AMS. Sister and brother at bedside. Patient reports severe diffused abdominal pain with increased abdominal distention. He also reports SOB with no alleviating factors. Sister reports patient received chemo in December 2016 but was lost to follow up. Patient has been having abdominal pain due to ascites that required serial paracentesis. He recently came to [place] ED 08/06/17 for a therapeutic paracentesis and a week later went to [place] for a repeat paracentesis. Dr. Westbrook had a discussion with patient in regards to Hospice and patient was reluctant at the time. His sister who help to take care of him. Patient was reffered to palliative care and is currently having issues with his health insurance in regards to approving his pain medications. Patient denies fever, chills, CP, palpitations, nausea, vomiting, recent alcohol use, urinary or bowel symptoms. Since he came in he has sig hypoxia and no fever, Has mild cough but severely dyspneic CT scan reviewed from [facility] 2 weeks ago which showed multiple innumerable lung nodules consistant with met disease. CT done today shows diffuse lung infilrate sugg of prob sig lymphangitic carcinamotosis (unlikely bacterial pna rule out influenza IMPRESSION * Hypoxic resp failure due to alveolar filling process highly sugg of rapidly advancing malignancy with prob lymphangitic carinamatosis ([address] showed muliple innumerable 9 mm lung nodules diffusely through out the lung with sig lymphadenopathy), Diff dx include viral pna and unlikely bacterial pna * Very advanced HCC with cirrhosis with decompensated liver disease * Poor performance status with rapidly progressing cancer REC Now on comfort measures Can dc vanco and cont azithro Pt wishes more pain control, will increase his narcotics Will follow prn Call if needed Discussed with the family and pt on the day of admission They wish to continue present care, however if he gets worse they want no intubation and pt is dnr and dni If he becomes more hypoxic and dyspneic will rx with morphine, and prn ativan, no central line or pressors if he starts to deteriorate If the patient gets worse the family wishes palliative care then not now
[2017-08-25 22:15] VITALS: BP 118/78
[2017-08-26 07:16] VITALS: BP 114/64
--- NOTE | 2017-08-26 11:15 | PN- Housestaff ---
Usha ACEVES,[place] 08/26/17 1115: Subjective Follow-up For: HCC, HCV, cirrhosis hepatic encephalopathy acute hypoxemic respiratory failure Subjective: persistent abdominal pain, tender to palpation mental status improved Review of Systems Constitutional: Reports: see HPI. Objective Last 24 Hrs of Vital Signs/I&O Vital Signs Date Time Temp Pulse Resp B/P B/P Pulse O2 O2 Flow FiO2 Mean Ox Delivery Rate 08/26 1359 98.1 100 18 100/60 92 08/26 0943 114/64 08/26 0800 95 Nasal 5.0L Cannula 08/26 0716 97.9 92 16 114/64 95 Nasal Cannula 08/25 2215 98.2 92 18 118/78 94 Intake & Output 08/26 1600 08/26 0800 08/26 0000 Intake Total 770 360 360 Output Total Balance 770 360 360 Intake, IV 270 Intake, Oral 500 360 360 Physical Exam General Appearance: Alert, Oriented X3, Cooperative, No Acute Distress Cardiovascular: Regular Rate, Normal S1, Normal S2, No Murmurs Lungs: diminished bibasilar Abdomen: Soft, distended, tender to palpation diffusely Extremities: No Clubbing, No Cyanosis, No Edema, Normal Pulses Current Medications: Current Medications Sig/Tanya Start time Last Medication Dose Route Stop Time Status Admin Azithromycin 500 MG Q24H 08/27 1200 AC Sodium Chloride 250 ML IV Azithromycin 500 MG Q24H 08/22 1200 DC 08/26 Dextrose/Water 250 ML IV 1204 Calcium Carbonate 500 MG DAILY 08/25 1547 AC 08/26 PO 0944 Ceftazidime 1,000 MG Q8H 08/25 0900 DC 08/26 IV 0811 Dronabinol 5 MG BID 08/20 2200 AC 08/26 PO 0947 Heparin Sodium 5,000 UNIT Q8 08/20 2200 AC 08/23 (Porcine) SC 1417 Hydromorphone HCl 4 MG Q2 HRS NEEDED PRN 08/25 1415 AC 08/26 PO 1201 Ibuprofen 800 MG TID PRN 08/20 1915 AC 08/26 PO 0946 Insulin Aspart 0 TIDAC 08/21 0800 AC 08/26 SC 1202 Lactulose 20 GM TID 08/25 1600 AC PO Lisinopril 20 MG DAILY 08/21 1000 AC 08/26 PO 0943 Lorazepam 0.5 MG Q4P PRN 08/24 0745 AC IV Morphine Sulfate 90 MG BID 08/26 2199 AC PO Morphine Sulfate 60 MG BID 08/24 2199 DC 08/26 PO 0943 Morphine Sulfate 15 MG BID 08/24 2199 DC 08/26 PO 0944 Omeprazole 40 MG DAILY AC 08/21 0700 AC 08/26 PO 0532 Prednisone 40 MG DAILY 08/23 1000 AC 08/26 PO 08/27 1001 0943 Assessment/Plan Assessment: 56 year old male with PMH of HCV, EtOH cirrhosis, HCC diagnosed in 2017 s/p DEBTACE with new metastatic lung disease was sent in for evaluation of altered mental status. He was admitted to ICU, started on broad spectrum antibiotics and underwent an IR guided paracentesis which removed 2.4L. His pain was controlled with hydromorphone and MS Contin. Encephalopathy: secondary to decompensated cirrhosis, improving -Continue antibiotics -Continue Lactulose for 3 to 4 bowel movements a day. Acute hypoxemic respiratory failure Differential diagnoses includes: lymphangitic carcinomatosis/rapidly advancing metastatic lung cancer vs multilobar pneumonia -Blood and urine cultures negative -Continue IV ceftaz/azithromycin -Decrease prednisone to 40 mg daily for 5 days. Metastatic HCC -Follow up with oncology Dr. Florentino in 1 week of discharge to discuss sorafenib treatment. -Poor prognosis, patient has elected not to treat at this time --Discussion with the patient about goals of care is already done and according to his wishes. He want to continue present care, but if he gets deteriorates no central line, no pressors and palliative care -Increase MS Contin to 90mg BID -Continue dilaudid 4mg PO Q2 PRN Diabetes mellitus: -Accucheks TIDAC/HS -Continue NovoLog sliding scale insulin Diabetic diet DVT ppx-heparin 5000units subcutaneous Q8H Comfort measures only Problem List: 1. Cirrhosis of liver 2. Liver cancer 3. Hepatocellular carcinoma metastatic to left lung 4. HCC (hepatocellular carcinoma) Pain Ratin Pain Location: abdominal Pain Goal: Pain 4 or less Pain Plan: prn Tomorrow's Labs & Rationales: none Sally Ledesma MD 08/26/17 1321: Attending MD Review Statement Attending Statement Attending MD Statement: examined this patient, discuss w/resident/PA/CAMPAIGN MANAGEMENT SPECIALIST, agreed w/resident/PA/CAMPAIGN MANAGEMENT SPECIALIST, reviewed EMR data (avail) Attending Assessment/Plan: 52M PMH HCC (diagnosed 2017) s/p VICTOR HUGO TACE with new metastatic lung disease, Hepatitis C s/p 3 months of therapy and alcoholic cirrhosis admitted for respiratory failure, hypoxia, dyspnea, malignant ascites. Patient has improved with Prednisone and broad spectrum antibiotics. His respiratory failure is likely multifactorial and primarily related to lung metastasis with lymphangitic spread. He is s/p therapeutic paracentesis. Over the weekend had an episode of hematemesis. Decision was made by patient and family to not pursue endoscopy and to focus on comfort, but to continue with treatment. After extensive discussion with patient and family, decision was made to discharge the patient to short term rehab, in hopes of regaining strength for possibly more cancer therapy. If patient detiorates or worsens, they will consider hospice/palliative care. The patient is DNR/DNI, no invasive procedures, currently. Patient reports pain that is not well controlled. Switched to PO Dilaudid PRN yesterday. 1. Acute hypoxemic respiratory failure secondary to lung metastases 2. Stage 4 hepatocellular carcinoma 3. Lymphangitic carcinamatosis 4. Chronic pain secondary to malignancy 5. Alcoholic/HCV cirrhosis Plan - Continue on general medicine - Discontinue antibiotics except for Azithromycin - Increase MS-contin to 90mg BID - Continue Dilaudid 4mg PO q2h PRN - Continue lactulose goal 3-4 BM/day - Follow pulmonary and oncology recommendations - Poor prognosis
[2017-08-26 13:59] VITALS: BP 100/60
[2017-08-26 22:46] VITALS: BP 112/60
[2017-08-27 06:15] VITALS: BP 108/66
--- NOTE | 2017-08-27 07:10 | PN- Housestaff ---
See Addendum Subjective Follow-up For: acute hypoxemic respiratory failure lymphangitic carcinomatosis hepatocellular carcinoma/cirrhosis/hcv chronic cancer related pain Subjective: severe abdominal pain yesterday after on palpation, wants to walk with PT patient complains of some exertional dyspnea and orthopnea denies cough fevers chills or diarrhea Review of Systems Constitutional: Reports: see HPI. Objective Last 24 Hrs of Vital Signs/I&O Vital Signs Date Time Temp Pulse Resp B/P B/P Pulse O2 O2 Flow FiO2 Mean Ox Delivery Rate 08/27 0615 98.3 83 20 108/66 90 Room Air 08/26 2246 98.8 87 22 112/60 90 08/26 1600 97 Room Air 08/26 1359 98.1 100 18 100/60 92 08/26 0943 114/64 Intake & Output 08/27 1600 08/27 0800 08/27 0000 Intake Total 360 480 Output Total Balance 360 480 Intake, Oral 360 480 Physical Exam General Appearance: Alert, Oriented X3, Cooperative, No Acute Distress Cardiovascular: Regular Rate, Normal S1, Normal S2, No Murmurs Lungs: bibasilar crackles Abdomen: Normal Bowel Sounds, Soft, distended but soft, bs+, difffusely tender on light palpation Extremities: No Clubbing, No Cyanosis, trace lower extremity edema Current Medications: Current Medications Sig/Tayna Start time Last Medication Dose Route Stop Time Status Admin Azithromycin 500 MG DAILY 08/28 1000 AC PO Azithromycin 500 MG Q24H 08/27 1200 AC Sodium Chloride 250 ML IV 08/27 2000 Azithromycin 500 MG Q24H 08/22 1200 DC 08/26 Dextrose/Water 250 ML IV 1204 Calcium Carbonate 500 MG DAILY 08/25 1547 AC 08/26 PO 0944 Ceftazidime 1,000 MG Q8H 08/25 0900 DC 08/26 IV 0811 Dronabinol 5 MG BID 08/20 2200 AC 08/26 PO 202 Heparin Sodium 5,000 UNIT Q8 08/20 2200 AC 08/23 (Porcine) SC 1417 Hydromorphone HCl 4 MG Q2 HRS NEEDED PRN 08/27 0730 AC PO Hydromorphone HCl 1 MG Q3 PRN 08/26 2215 DC 08/27 IV 0614 Hydromorphone HCl 4 MG Q2 HRS NEEDED PRN 08/25 1415 DC 08/26 PO 2005 Ibuprofen 800 MG .STK-MED ONE 08/26 2008 DC PO 08/26 2009 Ibuprofen 800 MG TID PRN 08/20 1915 AC 08/26 PO 2012 Insulin Aspart 0 TIDAC 08/21 0800 AC 08/27 SC 0816 Lactulose 20 GM TID 08/25 1600 AC 08/26 PO 1638 Lisinopril 20 MG DAILY 08/21 1000 AC 08/26 PO 0943 Lorazepam 0.5 MG Q4P PRN 08/24 0745 AC IV Morphine Sulfate 90 MG BID 08/26 2200 AC 08/26 PO 2038 Morphine Sulfate 15 MG .STK-MED ONE 08/26 2032 DC PO 08/26 203 Morphine Sulfate 60 MG BID 08/240 DC 08/26 PO 0943 Morphine Sulfate 15 MG BID 08/240 DC 08/26 PO 0944 Omeprazole 40 MG DAILY AC 08/21 0700 AC 08/27 PO 0614 Prednisone 40 MG DAILY 08/23 1000 AC 08/26 PO 08/27 1001 0943 Prochlorperazine 5 MG ONCE ONE 08/26 2215 CAN PO 08/26 2215 Assessment/Plan Assessment: 56 year old male with PMH of HCV, EtOH cirrhosis, HCC diagnosed in 2017 s/p DEBTACE with new metastatic lung disease was sent in for evaluation of altered mental status. He was admitted to ICU, started on broad spectrum antibiotics and underwent an IR guided paracentesis which removed 2.4L. His pain is controlled with hydromorphone and MS Contin. Encephalopathy: -secondary to decompensated cirrhosis, improved -Continue Lactulose for 3 to 4 bowel movements a day. Acute hypoxemic respiratory failure Differential diagnoses includes: lymphangitic carcinomatosis/rapidly advancing metastatic lung cancer vs multilobar pneumonia -Blood and urine cultures negative -Discontinue broad spectrum -Discontinue prednisone after 40mg today Metastatic HCC -Follow up with oncology Dr. Florentino in 1 week of discharge to discuss sorafenib treatment. -Poor prognosis, patient has elected not to treat at this time --Discussion with the patient about goals of care, he want to continue present care, but if he deteriorates wishes palliative care -Increase MS Contin to 90mg BID -Continue dilaudid 4mg PO Q2 PRN Diabetes mellitus: -Accucheks TIDAC/HS -Continue NovoLog sliding scale insulin Diabetic diet DVT ppx-heparin 5000units subcutaneous Q8H Comfort measures only Problem List: 1. Cirrhosis of liver 2. Ascites 3. Liver cancer 4. Respiratory distress 5. Hepatocellular carcinoma metastatic to left lung 6. HCC (hepatocellular carcinoma) Pain Ratin Pain Location: abdominal Pain Goal: Pain 4 or less Pain Plan: as ordered long acting and q2 breakthrough increase prn Tomorrow's Labs & Rationales: none
[2017-08-27 13:54] VITALS: BP 120/70
[2017-08-27 23:30] VITALS: BP 124/72
[2017-08-28 06:49] VITALS: BP 122/68
--- NOTE | 2017-08-28 07:02 | PN- Housestaff ---
Usha ACEVES,[place] 08/28/17 0702: Subjective Follow-up For: acute respiratory failure HCC, HCV, cirrhosis lymphangitic carcinomatosis Subjective: persistent abdominal pain but more tolerable overnight on current regimen of analgesics Review of Systems Constitutional: Reports: see HPI. Objective Last 24 Hrs of Vital Signs/I&O Vital Signs Date Time Temp Pulse Resp B/P B/P Pulse O2 O2 Flow FiO2 Mean Ox Delivery Rate 08/28 0649 98.1 78 18 122/68 88 Room Air 08/28 0000 Nasal 2.0L Cannula 08/27 2330 97.6 92 16 124/72 85 Room Air Intake & Output 08/28 1600 08/28 0800 08/28 0000 Intake Total 600 600 Output Total Balance 600 600 Intake, Oral 600 600 Number 1 Bowel Movements Physical Exam General Appearance: Alert, Oriented X3, Cooperative, No Acute Distress Cardiovascular: Regular Rate, Normal S1, Normal S2, No Murmurs Lungs: bibasilar crackles Abdomen: Normal Bowel Sounds, Soft, distended and diffusely tender to light palpation Extremities: No Clubbing, No Cyanosis, No Edema, Normal Pulses Current Medications: Current Medications Sig/Tanya Start time Last Medication Dose Route Stop Time Status Admin Calcium Carbonate 500 MG DAILY 08/25 1547 AC 08/26 PO 0944 Dronabinol 5 MG BID 08/20 2199 AC 08/28 PO 0913 Heparin Sodium 5,000 UNIT Q8 08/20 2199 AC 08/28 (Porcine) OR 0559 Hydromorphone HCl 4 MG Q2 HRS NEEDED PRN 08/27 0730 AC 08/28 PO 1123 Ibuprofen 800 MG TID PRN 08/20 1915 AC 08/26 PO 2012 Insulin Aspart 0 TIDAC 08/21 0800 AC 08/27 SC 0816 Lactulose 20 GM TID 08/25 1600 AC 08/26 PO 1638 Lisinopril 20 MG DAILY 08/21 1000 AC 08/28 PO 0913 Lorazepam 0.5 MG Q4P PRN 08/24 0745 AC IV Morphine Sulfate 90 MG BID 08/26 2199 AC 08/28 PO 0914 Omeprazole 40 MG DAILY AC 08/21 0700 AC 08/28 PO 0559 Assessment/Plan Assessment: 56 year old male with PMH of HCV, EtOH cirrhosis, HCC diagnosed in 2017 s/p DEBTACE with new metastatic lung disease was sent in for evaluation of altered mental status. He was admitted to ICU, started on broad spectrum antibiotics and underwent an IR guided paracentesis which removed 2.4L. His pain is controlled with hydromorphone and MS Contin. Encephalopathy: -secondary to decompensated cirrhosis, resolved -Continue Lactulose for 3 to 4 bowel movements a day. Acute hypoxemic respiratory failure secondary to probable lymphangitic carcinomatosis vs rapidly advancing metastatic lung cancer or less likely multilobar pneumonia -Blood and urine cultures negative -Off antibiotics Metastatic HCC -Follow up with oncology Dr. Florentino in 1 week of discharge to discuss sorafenib treatment. -Poor prognosis, patient has elected not to treat at this time -Discussion with the patient about goals of care, if he deteriorates wishes palliative care -Continue MS Contin to 90mg BID standing and dilaudid 4mg PO Q2 PRN for breakthrough Diabetes mellitus: -Accucheks TIDAC/HS -Continue NovoLog sliding scale insulin Diabetic diet DVT ppx-heparin 5000units subcutaneous Q8H Comfort measures only Problem List: 1. Cirrhosis of liver 2. Ascites 3. Respiratory distress 4. Hepatocellular carcinoma metastatic to left lung 5. HCC (hepatocellular carcinoma) Pain Ratin Pain Location: abdominal Pain Goal: Pain 4 or less Pain Plan: ms contin and dilaudid prn Tomorrow's Labs & Rationales: none Sally Ledesma MD 08/28/17 1338: Attending MD Review Statement Attending Statement Attending MD Statement: examined this patient, discuss w/resident/PA/OTOLARYNGOLOGY NURSE, agreed w/resident/PA/OTOLARYNGOLOGY NURSE, reviewed EMR data (avail) Attending Assessment/Plan: 52M PMH HCC (diagnosed 2016) s/p VICTOR HUGO TACE with new metastatic lung disease, Hepatitis C s/p 3 months of therapy and alcoholic cirrhosis admitted for respiratory failure, hypoxia, dyspnea, malignant ascites. Patient has improved with Prednisone and broad spectrum antibiotics. His respiratory failure is likely multifactorial and primarily related to lung metastasis with lymphangitic spread. He is s/p therapeutic paracentesis. Over the weekend had an episode of hematemesis. Decision was made by patient and family to not pursue endoscopy and to focus on comfort, but to continue with treatment. After extensive discussion with patient and family, decision was made to discharge the patient to short term rehab, in hopes of regaining strength for possibly more cancer therapy. If patient detiorates or worsens, they will consider hospice/palliative care. The patient is DNR/DNI, no invasive procedures, currently. Still in pain, improved from yesterday. Still weak. 1. Acute hypoxemic respiratory failure secondary to lung metastases 2. Stage 4 hepatocellular carcinoma 3. Lymphangitic carcinamatosis 4. Chronic pain secondary to malignancy 5. Alcoholic/HCV cirrhosis Plan - Can be discharged to [facility] if bed is available, and will follow up with oncology as an outpatient - Discontinue antibiotics - Continue MS-contin 90mg BID - Continue Dilaudid 4mg PO q2h PRN, can be increased to 6mg if pain is uncontrolled - Continue lactulose goal 3-4 BM/day - Follow pulmonary and oncology recommendations - Poor prognosis
--- NOTE | 2017-08-28 11:00 | Discharge Summary ---
Visit Information Visit Dates Admission Date: 08/20/17 Discharge Date: 08/28/17 Hospital Course Course Attending Physician: Campos Valenzuela MD Primary Care Physician: Kavita Perdue APRN Allergies: Coded Allergies: NO KNOWN ALLERGIES (10/29/12) Discharge Instructions Medications at Discharge Discharge Medications: Continue taking these medications: Sitagliptin Phosphate (Januvia) 100 MG TABLET 1 Tablet ORAL DAILY Lisinopril (Zestril) 20 MG TABLET 1 Tablet ORAL DAILY Esomeprazole (Nexium) 40 MG CAPSULE.DR 1 Capsule ORAL DAILY Qty = 90 Ibuprofen (Ibuprofen) 800 MG TABLET 1 Tablet ORAL THREE TIMES DAILY as needed for pain Qty = 60 Morphine Sulfate (Morphine Sulfate ER) 15 MG TABLET.ER 4 Tablet ORAL THREE TIMES DAILY as needed for pain Lactulose (Lactulose) 10 GRAM/15 ML SOLUTION 30 Milliliters ORAL THREE TIMES DAILY Dronabinol (Marinol) 5 MG CAPSULE 1 Capsule ORAL TWICE DAILY Hydromorphone HCl (Dilaudid) 8 MG TABLET 1 Tablet ORAL THREE TIMES DAILY
[2017-08-28] MEDS ORDERED: HYDROMORPHONE HC2 M1 PO ×2 (13:32→13:36)
[2017-08-28 14:30] VITALS: BP 122/68
[2017-08-28 14:43] VITALS: BP 110/60
== END 2017-08-28 19:15 | DRG 133 ==
LOC: ERH 14:35 → CRI 17:44 → 2NA 17:44 → ERHI 17:44 → ENRESERV 08-21 00:17 → CRI 08-21 00:54 → 2NA 08-21 20:43
PROVIDERS: Internal Medicine; Internal Medicine Adolescent Medicine; Internal Medicine Infectious Disease; Student in an Organized Health Care Education/Training Program
PROC: 0W9G3ZZ Drainage of Peritoneal Cavity, Percutaneous Approach (ICD-10-PCS; principal; 2017-08-20)
DX: J96.01 Acute respiratory failure with hypoxia (principal); C78.00 Secondary malignant neoplasm of unspecified lung; C22.0 Liver cell carcinoma; B19.20 Unspecified viral hepatitis C without hepatic coma; J18.9 Pneumonia, unspecified organism; K70.31 Alcoholic cirrhosis of liver with ascites; F10.10 Alcohol abuse, uncomplicated; C80.0 Disseminated malignant neoplasm, unspecified; K72.90 Hepatic failure, unspecified without coma; Z79.84 Long term (current) use of oral hypoglycemic drugs; Z51.5 Encounter for palliative care; Z66 Do not resuscitate; K70.40 Alcoholic hepatic failure without coma; G93.40 Encephalopathy, unspecified; E11.9 Type 2 diabetes mellitus without complications; E78.00 Pure hypercholesterolemia, unspecified; I10 Essential (primary) hypertension; G89.29 Other chronic pain
CPT/HCPCS: 04007; 2NAP; 2NASP; ERO; 36415; 71045; 81003; 82436; 86920; 87040; 87086; 87449; 87450; 87804; 87804-59; 93005; 93010; 94799; 96374; 96375; 99291; J0456; J0713; J1100; J1644; J1940; J2270; J2920; J3370; J3490; J7040; J7060

== ENCOUNTER 2017-09-03 23:31 | Observation (INO) | payer OTHER ==
[~2017-09-03] VITALS: Ht 175.3 cm; Wt 79.4 kg
[~2017-09-03 23:31] MED LIST changes: +DILAUDID8 M1 PO; +HYDROMORPHONE HC2 M1 PO; +LACTULOSE10 GM/153 PO; +MARINOL5 M1 PO; +MORPHINE SULFAT15 M3 PO
--- NOTE | 2017-09-04 00:04 | ED DYSPNEA/ASTHMA COMPLAINT ---
History of Present Illness General Chief Complaint: Dyspnea (COPD, CHF, Other) Stated Complaint: SOB Source: patient, old records Exam Limitations: no limitations Vital Signs & Intake/Output Vital Signs & Intake/Output Vital Signs Date Time Temp Pulse Resp B/P B/P Pulse O2 O2 Flow FiO2 Mean Ox Delivery Rate 09/06 1825 Nasal 95% Cannula 09/06 1600 95 Nasal 100% Cannula 09/06 1537 98.0 63 26 100/60 63 09/06 0800 Nasal 100% Cannula 09/06 0621 98.8 112 26 108/70 84 Nasal Cannula 09/06 0000 85 Nasal 95% Cannula 09/05 2218 98.1 112 22 100/60 85 Nasal Cannula ED Intake and Output 09/06 0000 09/05 1200 Intake Total 340 100 Output Total 600 200 Balance -260 -100 Intake, IV 0 Intake, Oral 340 100 Number 1 Bowel Movements Output, Urine 600 200 Allergies Coded Allergies: NO KNOWN ALLERGIES (10/29/12) Reconcile Medications Dronabinol (Marinol) 5 MG CAPSULE 1 CAP PO BID nasuea (Reported) Esomeprazole (Nexium) 40 MG CAPSULE.DR 1 CAP PO DAILY GI (Reported) Hydromorphone HCl (Dilaudid) 4 MG TABLET 1 TAB PO Q2 HRS NEEDED PAIN CONTROL (Reported) Hydromorphone HCl 2 MG TABLET 4 MG PO Q2 HRS NEEDED PRN PAIN SCALE 7-10 ( SEVERE) Ibuprofen 800 MG TABLET 1 TAB PO TID PRN pain Lactulose 10 GRAM/15 ML SOLUTION 30 ML PO TID gi (Reported) Lisinopril (Zestril) 20 MG TABLET 1 TAB PO DAILY BP (Reported) Morphine Sulfate (Ms Contin) 30 MG TABLET.ER 90 MG PO TID PAIN CONTROL ( Reported) Morphine Sulfate (Morphine Sulfate ER) 15 MG TABLET.ER 6 TAB PO TID PRN pain (Reported) Sitagliptin Phosphate (Januvia) 100 MG TABLET 1 TAB PO DAILY DM (Reported) Triage Note: PT BIBA FROM [facility] FOR INCREASED SOB ON EXERTION. PER EMS PT IS AT SNF FOR END STAGE LIVER DISEASE AND LUNG CA AND IS ON COMFORT MEASURES THERE. PER EMS BS WAS 130, BP WAS 90/60.PT ARRIVES ON HI TRINY O2, APPEARS JAUNDICE. Triage Nurses Notes Reviewed? yes Onset: Abrupt Duration: day(s):, constant, continues in ED Timing: recent history Severity: moderate, severe HPI: 52-year-old male comes into the emergency room for further evaluation of shortness of breath. Patient has stage IV liver cancer. He has metastatic disease. He is currently not hospice. He is a DNR/DNI. He's been increasingly weak with shortness of breath since today. He comes in by ambulance. He is on 5 L of oxygen normally. He is on pain medication. (Hang Rolon) Past History Travel History Traveled to [place] past 21 day No Medical History Any Pertinent Medical History? 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 No (Hang Rolon) Review of Systems Review of Systems Constitutional: Reports: see HPI. EENTM: Reports: no symptoms. Respiratory: Reports: see HPI. Cardiovascular: Reports: see HPI. GI: Reports: no symptoms. Genitourinary: Reports: no symptoms. Musculoskeletal: Reports: no symptoms. Skin: Reports: no symptoms. Neurological/Psychological: Reports: no symptoms. Hematologic/Endocrine: Reports: no symptoms. Immunologic/Allergic: Reports: no symptoms. All Other Systems: Reviewed and Negative (Hang Rolon) Physical Exam Physical Exam General Appearance: alert, awake, moderate distress, thin Head: atraumatic Eyes: Bilateral: EOMI. Ears, Nose, Throat: hearing grossly normal Neck: normal inspection Respiratory: decreased breath sounds (MODERATE), crackles Cardiovascular: regular rate/rhythm Extremities: normal inspection Neurologic/Psych: awake, alert, oriented x 3 Skin: intact, jaundice Core Measures ACS in differential dx? Yes CVA/TIA Diagnosis No Sepsis Present: No Sepsis Focused Exam Completed? No (Hang Rolon) Progress Differential Diagnosis: asthma, CHF, COPD, pericarditis, pulmonary embolism, pneumonia, pneumothorax Plan of Care: Orders Procedure Date/time Status Regular Diet 09/04 B Active Code Status 09/04 1452 Active Change service to 09/04 0732 Active CBC WITHOUT DIFFERENTIAL 09/04 06 Complete BASIC ELECTROLYTES PLUS BUN&CR 09/04 0600 Complete TRC EVALUATION (GEN) 09/04 0546 Active Pathway - chart 09/04 0546 Active House Staff 09/04 0546 Active Patient Data 09/04 0546 Active Code Status 09/04 0546 Complete TYPE & SCREEN (NOT X-MATCH) 09/04 0546 Complete LACTIC ACID 09/[address] in observation 09/04 0245 Active Patient Data 09/04 0244 Active ARTERIAL BLOOD GAS (GEN) 09/04 0200 Complete OXYGEN SETUP (GEN) 09/04 0145 Active Saline Lock 09/04 0145 Active Vital Signs 09/04 0145 Active Activity/Ambulation 09/04 0145 Active Code Status 09/04 0145 Complete Intake & Output 09/04 0107 Active EKG 09/04 0050 Active AMMONIA LEVEL 09/04 0009 Complete VTE Mechanical Prophylaxis 09/04 UNK Active Vital Signs 09/04 UNK Active Hemoccult 09/04 UNK Active FingerStick- Glucose 09/04 UNK Active RAPID VIRAL INFLUENZA A 09/03 2348 Complete BLOOD CULTURE 09/03 2348 Active TROPONIN LEVEL 09/03 2348 Complete LACTIC ACID 09/03 2348 Complete COMPREHENSIVE METABOLIC PANEL 09/03 2348 Complete CBC WITHOUT DIFFERENTIAL 09/03 2348 Complete B-TYPE NATRIURETIC PEP (BNP) 09/03 2348 Complete Current Medications Sig/Tanya Start time Last Medication Dose Stop Time Status Admin Azithromycin 250 MG DAILY 09/05 1000 UNVr (Zithromax) Insulin Aspart 0 AT BEDTIME 09/04 2200 AC (NovoLOG) Dronabinol 5 MG BID 09/04 1000 AC 09/04 (Marinol) 0902 Lactulose 20 GM TID 09/04 1000 AC 09/04 (Enulose 20GM/30ML) 0902 Morphine Sulfate 60 MG TID 09/04 1000 AC 09/04 (Ms Contin) 1709 Insulin Aspart 0 TIDAC 09/04 0800 AC 09/04 (NovoLOG) 0902 Omeprazole 40 MG DAILY AC 09/04 0700 AC 09/04 (Prilosec) 0718 Heparin Sodium 5,000 UNIT Q8 09/04 0600 CAN (Porcine) Hydromorphone HCl 2 MG Q2 HRS NEEDED PRN 09/04 0600 AC 09/04 (Dilaudid) 0614 Laboratory Tests 09/04/17 0715: Anion Gap 8, Estimated GFR > 60, BUN/Creatinine Ratio 35.0 H, CBC w Diff NO MAN DIFF REQ, RBC 2.57 L, MCV 82.8, MCH 26.8 L, MCHC 32.3 L, RDW 21.5 H, MPV 9.2 , Gran % 82.3 H, Lymphocytes % 11.1 L, Monocytes % 5.7, Eosinophils % 0.9, Basophils % 0, Absolute Granulocytes 6.9 H, Absolute Lymphocytes 0.9 L, Absolute Monocytes 0.5, Absolute Eosinophils 0.1, Absolute Basophils 0 09/04/17 0329: Lactic Acid 1.6 09/04/17 0210: pH 7.44, pCO2 32 L, pO2 80, HCO3 21, ABG O2 Sat (Measured) 94.0 L, Carboxyhemoglobin 1.0 L, O2 Concentration % 1.0, O2 Delivery Method NRB, Phlebotomy Draw Site RIGHT BRACHIAL 09/04/17 0010: Ammonia 16 09/04/17 0010: Anion Gap 9, Estimated GFR > 60, BUN/Creatinine Ratio 37.1 H, Glucose 130 H, Lactic Acid 2.8 H, Calcium 7.7 L, Total Bilirubin 1.5 H, AST 165 H, ALT 118 H, Alkaline Phosphatase 426 H, Troponin I < 0.01, Kgt-K-Thyjkedgltf Pept 200 H , Total Protein 6.2 L, Albumin 2.6 L, Globulin 3.6, Albumin/Globulin Ratio 0.7 L, CBC w Diff MAN DIFF ORDERED, RBC 2.95 L, MCV 82.3, MCH 26.4 L, MCHC 32.1 L, RDW 20.8 H, MPV 9.4, Segmented Neutrophils 87 H, Band Neutrophils 4, Lymphocytes 3 L, Monocytes 4, Eosinophils 1, Metamyelocytes 1, Platelet Estimate ADEQUATE, Polychromasia 1+, Hypochromic-Microcytic 2+, Poikilocytosis 1 +, Anisocytosis 2+, Target Cells 1+, Fld Total RBCs Counted 100 Microbiology 09/04 43 NASOPHARYN: Influenza Virus A & B Rapid Smear - COMP 09/04 14 BLOOD: Blood Culture - RECD 09/04 9 BLOOD: Blood Culture - RECD Diagnostic Imaging: Viewed by Me: Radiology Read. Discussed w/RAD: Radiology Read. Radiology Impression: PATIENT: ROSELIA PACK PRESENT AGE: 52 PATIENT ACCOUNT NO: [id number] : 63 LOCATION: [facility] ORDERING PHYSICIAN: Hang GOMEZ SERVICE DATE: 09/03/17 EXAM TYPE: RAD - XRY-PORTABLE CHEST XRAY EXAMINATION: XR PORTABLE CHEST CLINICAL INFORMATION: Shortness of breath COMPARISON: Chest x-ray August 22, 2017 TECHNIQUE: Portable frontal view of the chest was obtained. 12:22 AM FINDINGS: Lung volume low. There is extensive bilateral airspace disease that is worsened since exam of August 22, 2017. This is likely due to pulmonary edema though overwhelming sepsis or ARDS is not excluded. There is no large pleural effusion. IMPRESSION: Significant bilateral airspace disease. Congestive heart failure versus overwhelming sepsis versus ARDS. This has worsened since exam of August 22, 2017. DICTATED BY: eJsse Boo MD DATE/TIME DICTATED:09/04/1740 DATABASE MANAGEMENT SPECIALIST:GILBERT DATE/TIME TRANSCRIBED:09/04/1740 CONFIDENTIAL, DO NOT COPY WITHOUT APPROPRIATE AUTHORIZATION. <Electronically signed in Other Vendor System> SIGNED BY: Jesse Boo MD 09/04/1745 Initial ED EKG: normal sinus rhythm, rate (101) Hand-Off Endorsed To: Dawson Stahl MD Pending: EKG, labs, Xray Comments: 09/03/17 Patient was signed out to Dr. STAHL pending labs chest x-ray and admission (Hang Rolon) Departure Departure Disposition: STILL A PATIENT Condition: Stable Clinical Impression Primary Impression: Pneumonia Referrals: Kavita Perdue APRN (PCP/Family) Departure Forms: Customer Survey General Discharge Information (Hang Rolon) PA/RESIN COATER Co-Sign Statement Statement: ED Attending supervision documentation- x I saw and evaluated the patient. I have also reviewed all the pertinent lab results and diagnostic results. I agree with the findings and the plan of care as documented in the PA's/RESIN COATER's documentation. metastatic liver cancer with significant work of breathing and increasing oxygen demand, DNR/DNI [] I have reviewed the ED Record and agree with the PA's/RESIN COATER's documentation. [] Additions or exceptions (if any) to the PAs/RESIN COATER's note and plan are summarized below: [] (Live ACEVES,Dawson) Critical Care Note Critical Care Note Critical Care Time: non-applicable ([place] GOMEZ,Hang)
[2017-09-04 00:29] LABS: HEMATOCRIT 24.3 % (42-52); MEAN CORPUSCULAR HGB 26.4 PG (27.0-31.0); MEAN CORPUSCULAR HGB CONC 32.1 G/DL (33.0-37.0); MEAN CORPUSCULAR VOLUME 82.3 FL (80.0-94.0); MEAN PLATELET VOLUME 9.4 FL (7.4-10.4); PLATELET COUNT 291 /CUMM (130-400); RBC DISTRIBUTION WIDTH 20.8 % (11.5-14.5); RED BLOOD CELL CT 2.95 /CUMM (4.70-6.10); WHITE BLOOD CELL COUNT 11.7 /CUMM (4.8-10.8)
--- NOTE | 2017-09-04 00:46 | RADIOLOGY REPORT ---
EXAMINATION: XR PORTABLE CHEST CLINICAL INFORMATION: Shortness of breath COMPARISON: Chest x-ray August 22, 2017 TECHNIQUE: Portable frontal view of the chest was obtained. 12:22 AM FINDINGS: Lung volume low. There is extensive bilateral airspace disease that is worsened since exam of August 22, 2017. This is likely due to pulmonary edema though overwhelming sepsis or ARDS is not excluded. There is no large pleural effusion. IMPRESSION: Significant bilateral airspace disease. Congestive heart failure versus overwhelming sepsis versus ARDS. This has worsened since exam of August 22, 2017.
--- NOTE | 2017-09-04 02:48 | History & Physical ---
Gregory ACEVES,[facility] 09/04/17 0248: General Information and HPI MD Statement: I have seen and personally examined ROSELIA PACK and documented this H&P. The patient is a 52 year old M who presented with a patient stated chief complaint of [oxygen desaturation]. Source of Information: family History of Present Illness: Mr. Pack is a 52 year old man with a PMH significant for HCC (diagnosed 2016 ) s/p drug-eluting bead trans-arterial chemoembolization with new metastatic lung disease, Hepatitis C s/p 3 months of therapy and alcoholic cirrhosis found to have oxygen desaturation after ambulation at [facility]. The patient did not want to speak to the medical team during the initial H&P in the history was given by his sister. The patient was recently discharged on 08/28/17. The patient was originally not discharge oxygen however he has required the oxygen for the last 3 days. The family member states that this the patient desaturates as he needs to walk down the hallway to use the bathroom and shower. Today the family member help the patient to the bathroom. However the patient felt like he was going to fall. His oxygen desaturated to apparently 58% on 2 L. The family stated that the patient was waddling from side to side. His oxygen was increased to 5 L however he continued to have respiratory and shortness of breath complaints. The patient did not eat all day because he did not like the food at the facility. The patient did not want to speak to the medical team as he was busy eating. The family member states that the patient has back pain at baseline due to his positioning and how he sleeps. The patient does use oxygen to sleep. The family member states that the patient denies any headaches, fevers, chills, abdominal pain, or changes in elimination. Allergies/Medications Allergies: Coded Allergies: NO KNOWN ALLERGIES (10/29/12) Home Med list Dronabinol (Marinol) 5 MG CAPSULE 1 CAP PO BID nasuea (Reported) Esomeprazole (Nexium) 40 MG CAPSULE.DR 1 CAP PO DAILY GI (Reported) Hydromorphone HCl (Dilaudid) 4 MG TABLET 1 TAB PO Q2 HRS NEEDED PAIN CONTROL (Reported) Hydromorphone HCl 2 MG TABLET 4 MG PO Q2 HRS NEEDED PRN PAIN SCALE 7-10 ( SEVERE) Ibuprofen 800 MG TABLET 1 TAB PO TID PRN pain Lactulose 10 GRAM/15 ML SOLUTION 30 ML PO TID gi (Reported) Lisinopril (Zestril) 20 MG TABLET 1 TAB PO DAILY BP (Reported) Morphine Sulfate (Ms Contin) 30 MG TABLET.ER 90 MG PO TID PAIN CONTROL ( Reported) Morphine Sulfate (Morphine Sulfate ER) 15 MG TABLET.ER 6 TAB PO TID PRN pain (Reported) Sitagliptin Phosphate (Januvia) 100 MG TABLET 1 TAB PO DAILY DM (Reported) Past History Travel History Traveled to [place] past 21 day No Medical History Neurological: migraine EENT: NONE Cardiovascular: hypertension, HIGH CHOLESTEROL Respiratory: bronchitis Gastrointestinal: peptic ulcer disease (erosive gastritis), internal hemorrhoids Hepatic: cirrhosis, hepatitis C Renal: NONE Musculoskeletal: NONE Psychiatric: NONE Endocrine: diabetes Blood Disorders: HEP C Cancer(s): liver cancer, HCC UTILITY DRIVER/Reproductive: NONE History of MRSA: No History of VRE: No History of CDIFF: No Surgical History Surgical History: JAW FX, RIGHT HIP FX Past Family/Social History Psychosocial History ETOH Use: denies use Review of Systems Review of Systems Constitutional: Reports: see HPI. Respiratory: Reports: short of breath. Musculoskeletal: Reports: back pain. Exam & Diagnostic Data Last 24 Hrs of Vital Signs/I&O Vital Signs Date Time Temp Pulse Resp B/P B/P Pulse O2 O2 Flow FiO2 Mean Ox Delivery Rate 09/04 0546 97 Nasal 95% Cannula 09/04 0441 97.1 103 20 110/67 98 Nasal 95% Cannula 09/04 0230 99.1 101 22 108/62 96 Non 10L ReBreather 09/04 0113 94 Non 10L ReBreather 09/03 2339 98.0 107 20 90/53 93 Intake & Output 09/04 0800 09/04 0000 09/03 1600 Intake Total Output Total Balance Patient 175 lb Weight Weight Reported by Patient Measurement Method Physical Exam General Appearance Alert, Cooperative, Mild Distress, The patient wanted to be examined only very briefly. Cardiovascular Normal S1, Normal S2, tachycardia Lungs Clear to Auscultation, decreased air movement due to effort Abdomen hyperactive bowel sounds, distended, tender to palpation Extremities 2+ radial pulses Last 24 Hrs of Labs/Lee: Laboratory Tests 09/04/17 0329: Lactic Acid 1.6 09/04/17 0210: pH 7.44, pCO2 32 L, pO2 80, HCO3 21, ABG O2 Sat (Measured) 94.0 L, Carboxyhemoglobin 1.0 L, O2 Concentration % 1.0, O2 Delivery Method NRB, Phlebotomy Draw Site RIGHT BRACHIAL 09/04/17 0010: Ammonia 16 09/04/17 0010: Anion Gap 9, Estimated GFR > 60, BUN/Creatinine Ratio 37.1 H, Glucose 130 H, Lactic Acid 2.8 H, Calcium 7.7 L, Total Bilirubin 1.5 H, AST 165 H, ALT 118 H, Alkaline Phosphatase 426 H, Troponin I < 0.01, Bos-B-Ishanxrsayi Pept 200 H , Total Protein 6.2 L, Albumin 2.6 L, Globulin 3.6, Albumin/Globulin Ratio 0.7 L, CBC w Diff MAN DIFF ORDERED, RBC 2.95 L, MCV 82.3, MCH 26.4 L, MCHC 32.1 L, RDW 20.8 H, MPV 9.4, Segmented Neutrophils 87 H, Band Neutrophils 4, Lymphocytes 3 L, Monocytes 4, Eosinophils 1, Metamyelocytes 1, Platelet Estimate ADEQUATE, Polychromasia 1+, Hypochromic-Microcytic 2+, Poikilocytosis 1 +, Anisocytosis 2+, Target Cells 1+, Fld Total RBCs Counted 100 Microbiology 09/04 0044 NASOPHARYN: Influenza Virus A & B Rapid Smear - COMP 09/04 14 BLOOD: Blood Culture - RECD 09/04 9 BLOOD: Blood Culture - RECD Assessment/Plan Assessment: Patient curently OBS. A: Mr. Pack is a 52 year old man with a PMH significant for HCC (diagnosed 2016 ) s/p drug-eluting bead trans-arterial chemoembolization with new metastatic lung disease, Hepatitis C s/p 3 months of therapy and alcoholic cirrhosis presenting for increased oxygen demand and desaturation. P: #SOB WBC 11.7 with 4 bands O2 sat 96-98% on 95% oxygen (high flow NC) CXR: Significant bilateral airspace disease. Congestive heart failure versus overwhelming sepsis versus ARDS. Received 1x vanc/ceftaz in ED ABG: PH 7.44, PCO2 32, PO2 80, bicarbonate 21 ProBNP 200 Lactic acid 2.8 -> 1.6 -f/u with Dr. Valenzuela -cont oxygen #hx of HCC (diagnosed 2016) s/p drug-eluting bead trans-arterial chemoembolization with new metastatic lung disease T bili 1.5, ALT 118, AST 165, ALP 426, ammonia 16 -patient is currently OBS. If pt here >24 hrs, hospice eval should be initiated. -pain control -dronabinol -f/u oncology consult #anemia H/H 7.8/24.3 (baseline 05/26) -Continue to monitor #Hyponatremia 136 -Continue to monitor #Hyperkalemia 5.3 -Continue to monitor #diabetes -begin novolog sliding scale #constipation -lactulose #gerd -omeprazole #DNR DNI #DVT prophylaxis -ALPS As Ranked By This Provider Problem List: 1. HCC (hepatocellular carcinoma) 2. SOB (shortness of breath) Core Measures/Misc (04/13) Acute Coronary Syndrome ACS Diagnosis: No Congestive Heart Failure Congestive Heart Failure Diagnosis No Cerebrovascular Accident CVA/TIA Diagnosis: No VTE (View Protocol) VTE Risk Factors Cancer/chemo/othr therapy No Mechanical VTE Prophylaxis d/t N/A MechProphylax Ordered No VTE Pharm Prophylaxis d/t Medical Contraindication Sepsis (View protocol) [facility]epsis Present: No [facility]05: Resident Review Statement Resident Statement: examined this patient, discussed with architect intern, agreed with architect intern, discussed with family Other Findings: Mr. Pack is 52 year old male with past medical history significant for HCC ( diagnosed 2017) s/p drug-eluting bead trans-arterial chemoembolization with new metastatic lung disease, Hepatitis C s/p 3 months of therapy and alcoholic cirrhosis, discharged on 08/28/17 for comfort care at [facility]. History was obtained from the patient's sister as he was unable to finish complete sentences without he did shortness of breath. She reported that patient was doing fine, for the last 3 days they noticed shortness of breath on long distance walking and he was de-satting so started him on 4 L oxygen. Today patient went to bathroom, and evidently for 2 minutes he was off oxygen while in the bathroom, called his sister for help, was about to pass out, patient was satting 58% on 2 L and brought to ED for evaluation by ambulance. Sister denied any history of cough, fever, chills, upper respiratory infection. She reported chest pain and palpitation with shortness of breath. Problem list #Shortness of breath probably because lung metastasis, low probability for pneumonia as patient doesn't have any other symptoms cough, fever, chills. Mild leukocytosis #Hepatic cell carcinoma with lung metastasis #Anemia from chronic disease #Hypertension #Diabetes Plan -Observed in ED -Continue home medication -Morphine extended release 60 3 times a day scheduled, Dilaudid 2 mg every 2 when necessary Patient told Marichuy Clark MD that he wants to cut down pain medication -Call case management in a.m. for hospice evaluation -Follow CBC, crossmatch, guaiac stool, blood transfusion if hemoglobin less than 7 -We'll follow off antibiotic, if patient developed fever please start antibiotic -Pulmonary consultation Campos Valenzuela MD was placed -Hematology consultation was placed -We'll hold DVT prophylaxis given anemia -We'll hold lisinopril as patient blood pressure running on the low side -Accu-Chek and NovoLog sliding scale 3 times a day HC and at bedtime -Continue rest of home medication -Patient's sister reported that patient doesn't know about lung metastasis and she doesn't want anybody to discuss this with him Code DNR/DNI DVT prophylaxis Alps Diet regular Eduardo ACEVES, [facility] 09/04/17 0715: Attending MD Review Statement Attending Statement Attending MD Statement: examined this patient, discuss w/resident/PA/ONLINE CONTENT COORDINATOR, agreed w/resident/PA/ONLINE CONTENT COORDINATOR, discussed with family, reviewed images, amended to note Attending Assessment/Plan: 52 yo M with h/o HCC s/p VICTOR HUGO TACE procedure, with new metastatic lung disease, Hepatitis C, liver cirrhosis, alcohol abuse, DM, recently admitted (08/20 08/28) for 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 Of note, patient was started on oxygen supplementation while at the facility over the past 2-3 days as he was desating on exertion. Today patient was using the bathroom but did not take his oxygen along. When he returned from the bathroom, he was extremely dyspneic, altered and was wobbly on his feet. Sats were 56% on 5L O2. He was sent to the ER. Patient denies cough, phlegm, but reports some abdominal/back discomfort that seems chronic. He feels he is being overmedicated with pain medications and wishes to cut back on them. He denies any active GI or bleeding. This patient was DNR/I and was discharged on 'comfort measures only' this is documented on W10 from [facility]. Sister reports a decline in his functional status and appetite. Vitals: afebrile, tachycardic, BP 110/67, sats 98% on NRB. Exam: lethargic, but answers questions appropriately, in moderate distress, pallor+, dry mucous membranes, diffuse anasarca especially upper and lower extremities, Chest b/l scattered rhonchi++, Heart S1S2 regular tachycardic, Abd soft, distended, nontender, LE: b/l edema+. Labs: WBC 11.7, H/H 7.8/24.3, Plt 291, bands 4, Na 136, K 5.3, BUN 26, lactic acid 2.8, Ca 7.7, T. Bili 1.5, AST 165, ALT 118, Alk phos 426, trop neg. AB.44/32/80/21. CXR: significant bilateral airspace disease ?CHF vs. ARDS -worsened since exam of Aug 22. EKG: sinus tachycardia, nonspecific T wave changes. Assessment and plan: 1. Acute hypoxic respiratory failure 2. 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 Hepatocellular cancer with lung mets poor prognosis 4. Normocytic anemia acute 5. Hepatitis C - 23 hour observation on general medicine - Code- status DNR/I - TRC nebs - Cultures done in ER - IV ceftaz and vanco given in ER - Monitor off antibiotics as this seems to be progressive lymphangitic carcinomatosis - Inform Dr. Valenzuela and Dr. Cain. - I discussed at length with patient's sister Divina who reported that patient was on comfort measures. Agrees with DNR/I and supportive care for now. She is leaning towards comfort measures and Hospice care if he deteriorates further. She had spoke with hogshead press operator during most recent admission and wants to know more about hospice care at the facility ([facility]). She wishes to speak with Case management and hogshead press operator in AM. - Please consult case management and hogshead press operator in AM. - She is ok with Bipap. She does not want patient to know about extensive lung involvement due to cancer. - Discussed with patient, wishes for no heroic measures, ok with Bipap if needed. - He wishes to cut back on his pain meds as he feels overmedicated dose morphine and dilaudid as above. - Guaiac all stools, type and crossmatch, transfuse only if Hb < 7.0. DVT ppx Alps. DNR/I. Observation Initial Note - I have personally examined ROSELIA PACK on 09/04/17 at 0716. The disposition of ROSELIA PACK is uncertain at this time and before a determination can be made, he requires a period of observation for the following reasons [Respiratory failure, DNR/I --> comfort measures, possible hospice]
[2017-09-04] MEDS ORDERED: MS CONTIN30 M1 PO (06:51)
[2017-09-04] MEDS ORDERED: DILAUDID4 M1 PO (06:52)
[2017-09-04 07:46] VITALS: BP 94/54
--- NOTE | 2017-09-04 07:49 | Cons- Oncology ---
General Information and HPI Consulting Request Date of Consult: 09/04/17 Requested By: Eduardo ACEVES,Marichuy Reason for Consult: HCC Source of Information: patient, old records Exam Limitations: poor historian History of Present Illness: Mr. Echevarria is a 52 year-old male male with cirrhosis of the liver, alcohol abuse, hepatitis C status post 3 months of therapy, DM, and HCC s/p VICTOR HUGO TACE procedure on 12/31/2016 who presented to the ED with worsening dyspnea. He was recently discharged from the hospital on 08/28/[address] [facility]. He has been progressively worsened with oxygen requirement. He has increasing abdominal distension. He has increasing generalized pain. He has no fever or chills. He has no nausea or vomiting. He denies any hematemesis or dark/black stool. He did have hematemesis during last admission. On presentation, he was reportedly found to have oxygen saturation of 58% on 2L. He is currently on high flow oxygen. Hemoglobin has also decreased to 7.8 from 9.4 on 08/24. Chest x-ray demosntrated worsening airspace disease. He does not want to talk much this morning. Allergies/Medications Allergies: Coded Allergies: NO KNOWN ALLERGIES (10/29/12) Home Med List: Dronabinol (Marinol) 5 MG CAPSULE 1 CAP PO BID nasuea (Reported) Esomeprazole (Nexium) 40 MG CAPSULE.DR 1 CAP PO DAILY GI (Reported) Hydromorphone HCl (Dilaudid) 4 MG TABLET 1 TAB PO Q2 HRS NEEDED PAIN CONTROL (Reported) Hydromorphone HCl 2 MG TABLET 4 MG PO Q2 HRS NEEDED PRN PAIN SCALE 7-10 ( SEVERE) Ibuprofen 800 MG TABLET 1 TAB PO TID PRN pain Lactulose 10 GRAM/15 ML SOLUTION 30 ML PO TID gi (Reported) Lisinopril (Zestril) 20 MG TABLET 1 TAB PO DAILY BP (Reported) Morphine Sulfate (Ms Contin) 30 MG TABLET.ER 90 MG PO TID PAIN CONTROL ( Reported) Morphine Sulfate (Morphine Sulfate ER) 15 MG TABLET.ER 6 TAB PO TID PRN pain (Reported) Sitagliptin Phosphate (Januvia) 100 MG TABLET 1 TAB PO DAILY DM (Reported) Current Medications: Current Medications Sig/Tanya Start time Last Medication Dose Route Stop Time Status Admin Alprazolam 0 .STK-MED ONE 09/04 0524 DC PO Alprazolam 0.5 MG ONCE ONE 09/04 0515 DC 09/04 PO 09/04 0616 0622 Ceftazidime 0 .STK-MED ONE 09/04 014 DC .ROUTE Ceftazidime 1,000 MG ONCE ONE 09/04 0130 DC 09/04 IV 09/04 0131 0157 Dronabinol 5 MG BID 09/04 1000 AC PO Heparin Sodium 5,000 UNIT Q8 09/04 0600 CAN (Porcine) SC Hydromorphone HCl 0 .STK-MED ONE 09/04 614 DC .ROUTE Hydromorphone HCl 2 MG Q2 HRS NEEDED PRN 09/04 0600 AC 09/04 IV 0614 Insulin Aspart 0 AT BEDTIME 09/04 2200 AC SC Insulin Aspart 0 TIDAC 09/04 0800 AC SC Lactulose 30 GM TID 09/04 1000 DC PO Lactulose 20 GM TID 09/04 1000 AC PO Morphine Sulfate 60 MG TID 09/04 1000 AC PO Morphine Sulfate 0 .STK-MED ONE 09/04 0524 DC PO Morphine Sulfate 60 MG TID 09/04 0552 DC 09/04 PO 0622 Omeprazole 40 MG DAILY AC 09/04 0700 AC 09/04 PO 0718 Sodium Chloride 1,000 ML BOLUS ONE 09/04 013 DC 09/04 IV 09/04 022 0136 Sodium Chloride 1,000 ML BOLUS ONE 09/04 0130 DC 09/04 IV 09/04 0229 0309 Sodium Chloride 1,000 ML BOLUS ONE 09/04 0130 DC 09/04 IV 09/04 0229 0436 Vancomycin HCl 0 .STK-MED ONE 09/04 014 DC .ROUTE Vancomycin HCl 1,000 MG ONCE ONE 09/04 013 DC 09/04 Dextrose/Water 250 ML IV 09/04 0229 0157 Review of Systems Review of Systems Constitutional: Reports: malaise, weakness. Cardiovascular: Denies: chest pain. Respiratory: Reports: cough, short of breath. Denies: hemoptysis. GI: Reports: abdominal pain, bloating. Denies: melena, bloody stool. Musculoskeletal: Reports: back pain. Neurological/Psychological: Reports: anxiety. All Other Systems: Reviewed and Negative Past History Travel History Traveled to [place] past 21 day No Medical History Neurological: migraine EENT: NONE Cardiovascular: hypertension, HIGH CHOLESTEROL Respiratory: bronchitis Gastrointestinal: peptic ulcer disease (erosive gastritis), internal hemorrhoids Hepatic: cirrhosis, hepatitis C Renal: NONE Musculoskeletal: NONE Psychiatric: NONE Endocrine: diabetes Blood Disorders: HEP C Cancer(s): liver cancer, HCC CASH APPLICATIONS REPRESENTATIVE/Reproductive: NONE Surgical History Surgical History: JAW FX, RIGHT HIP FX Psychosocial History ETOH Use: denies use Exam & Diagnostic Data Vital Signs and I&O Vital Signs Date Time Temp Pulse Resp B/P B/P Pulse O2 O2 Flow FiO2 Mean Ox Delivery Rate 09/04 0546 97 Nasal 95% Cannula 09/04 0441 97.1 103 20 110/67 98 Nasal 95% Cannula 09/04 0230 99.1 101 22 108/62 96 Non 10L ReBreather 09/04 0113 94 Non 10L ReBreather 09/03 2339 98.0 107 20 90/53 93 Intake & Output 09/04 0800 09/04 0000 09/03 1600 Intake Total Output Total Balance Patient 79.379 kg Weight Weight Reported by Patient Measurement Method Physical Exam General Appearance: anxious, cachetic, mild distress Head: atraumatic, normal appearance Eyes: Bilateral: PERRL, EOMI. Ears, Nose, Throat: normal pharynx Respiratory: chest non-tender, quiet respiration, decreased breath sounds, accessory muscle use, crackles, on high flow oxygen Cardiovascular: edema, tachycardia Gastrointestinal: distention, tenderness Extremities: 2+ BLE edema Neurologic/Psych: awake, alert, oriented x 3 Skin: warm/dry Last 48 Hours of Lab Results: Laboratory Tests 09/04 09/04 09/04 09/04 0715 0329 0210 0010 Blood Gas pH (7.35 - 7.45 PH) 7.44 pCO2 (35 - 45 TORR) 32 L pO2 (80 - 100 TORR) 80 HCO3 (21 - 28 MEQ/L) 21 ABG O2 Sat (Measured) (>96.0 %) 94.0 L Carboxyhemoglobin (1.5 - 5.0 %) 1.0 L O2 Concentration % 1.0 O2 Delivery Method NRB Chemistry Sodium Pending Potassium Pending Chloride Pending Carbon Dioxide Pending Anion Gap Pending BUN Pending Creatinine Pending BUN/Creatinine Ratio Pending Lactic Acid (0.7 - 2.1 mmol/L) 1.6 Ammonia (9 - 30 umol/L) 16 Hematology CBC w Diff Pending WBC Pending RBC Pending Hgb Pending Hct Pending MCV Pending MCH Pending MCHC Pending RDW Pending Plt Count Pending MPV Pending Miscellaneous Phlebotomy Draw Site RIGHT BRACHIAL 09/04 0010 Chemistry Sodium (137 - 145 mmol/L) 136 L Potassium (3.5 - 5.1 mmol/L) 5.3 H Chloride (98 - 107 mmol/L) 103 Carbon Dioxide (22 - 30 mmol/L) 24 Anion Gap (5 - 16) 9 BUN (9 - 20 mg/dL) 26 H Creatinine (0.7 - 1.2 mg/dL) 0.7 Estimated GFR (>60 ml/min) > 60 BUN/Creatinine Ratio (7 - 25 %) 37.1 H Glucose (65 - 99 mg/dL) 130 H Lactic Acid (0.7 - 2.1 mmol/L) 2.8 H Calcium (8.4 - 10.2 mg/dL) 7.7 L Total Bilirubin (0.2 - 1.3 mg/dL) 1.5 H AST (17 - 59 U/L) 165 H ALT (21 - 72 U/L) 118 H Alkaline Phosphatase (< 127 U/L) 426 H Troponin I (<0.11 ng/ml) < 0.01 [id number] Pept (<125 pg/mL) 200 H Total Protein (6.3 - 8.2 g/dL) 6.2 L Albumin (3.5 - 5.0 g/dL) 2.6 L Globulin (1.9 - 4.2 gm/dL) 3.6 Albumin/Globulin Ratio (1.1 - 2.2 %) 0.7 L Hematology CBC w Diff MAN DIFF ORDERED WBC (4.8 - 10.8 /CUMM) 11.7 H RBC (4.70 - 6.10 /CUMM) 2.95 L Hgb (14.0 - 18.0 G/DL) 7.8 L Hct (42 - 52 %) 24.3 L MCV (80.0 - 94.0 FL) 82.3 MCH (27.0 - 31.0 PG) 26.4 L MCHC (33.0 - 37.0 G/DL) 32.1 L RDW (11.5 - 14.5 %) 20.8 H Plt Count (130 - 400 /CUMM) 291 MPV (7.4 - 10.4 FL) 9.4 Segmented Neutrophils (42.2 - 75.2 %) 87 H Band Neutrophils (0.0 - 5.0 %) 4 Lymphocytes (20.5 - 51.1 %) 3 L Monocytes (1.7 - 9.3 %) 4 Eosinophils (0 - 5.0 %) 1 Metamyelocytes (0.0 - 1.0 %) 1 Platelet Estimate (ADEQUATE) ADEQUATE Polychromasia 1+ Hypochromic-Microcytic 2+ Poikilocytosis 1+ Anisocytosis 2+ Target Cells 1+ Other Body Source Fld Total RBCs Counted (%) 100 Imaging/Other Studies: Chest x-ray 09/03/2017: Lung volume low. There is extensive bilateral airspace disease that is worsened since exam of August 22, 2017. This is likely due to pulmonary edema though overwhelming sepsis or ARDS is not excluded. There is no large pleural effusion. IMPRESSION: Significant bilateral airspace disease. Congestive heart failure versus overwhelming sepsis versus ARDS. This has worsened since exam of August 22, 2017. Assessment/Plan Assessment: Mr. Echevarria is a 52 year-old male male with cirrhosis of the liver, alcohol abuse, hepatitis C status post 3 months of therapy, DM, and HCC s/p VICTOR HUGO TACE procedure on 12/31/2016 who presented to the ED with worsening dyspnea. Chest x- ray demonstrated worsening airspace disease. Blood work demonstrated worsening anemia. This is concerning for possible bleeding given previous history of hematemesis in setting of cirrhosis. He had declined endoscopy during last admission. HCC seems to be stable. Liver function tests are stable since discharge. Respiratory symptoms may be related to fluid overload versus infectious. He is on antibiotic currently. Recommendations: Acute hypoxic respiratory failure: -Management as per primary -Antibiotic as per primary -Consider diuresis -Consider paracentesis HCC: -poor performance status and prognosis -potential candidate for sorafenib if improvement in clinical status -hospice candidate Cirrhosis: -monitor for worseing bleeding -supportive measure Problem List: 1. HCC (hepatocellular carcinoma) 2. Respiratory distress 3. SOB (shortness of breath) Other Findings/Comments: Please call [phone] Consult Acknowledgment - Thank you for your consult request.
[2017-09-04 08:02] LABS: HEMATOCRIT 21.3 % (42-52); MEAN CORPUSCULAR HGB 26.8 PG (27.0-31.0); MEAN CORPUSCULAR HGB CONC 32.3 G/DL (33.0-37.0); MEAN CORPUSCULAR VOLUME 82.8 FL (80.0-94.0); MEAN PLATELET VOLUME 9.2 FL (7.4-10.4); PLATELET COUNT 235 /CUMM (130-400); RBC DISTRIBUTION WIDTH 21.5 % (11.5-14.5); RED BLOOD CELL CT 2.57 /CUMM (4.70-6.10)
[2017-09-04 09:02] LABS: WHITE BLOOD CELL COUNT 8.4 /CUMM (4.8-10.8)
[2017-09-04 09:03] LABS: ABSOLUTE BASOPHIL COUNT 0 /CUMM (0.0-0.2); ABSOLUTE EOSINOPHIL COUNT 0.1 /CUMM (0.0-0.7); ABSOLUTE GRANULOCYTE CT 6.9 /CUMM (1.4-6.5); ABSOLUTE LYMPH COUNT 0.9 /CUMM (1.2-3.4); ABSOLUTE MONOCYTE COUNT 0.5 /CUMM (0.10-0.60); BASOPHIL % 0 % (0.0-2.0); EOSINOPHIL % 0.9 % (0-5); GRANULOCYTE % 82.3 % (42.2-75.2)
--- NOTE | 2017-09-04 09:14 | PN- Housestaff ---
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 Patient was sleeping when I entered. Review of Systems Constitutional: Reports: see HPI. Objective Last 24 Hrs of Vital Signs/I&O Vital Signs Date Time Temp Pulse Resp B/P B/P Pulse O2 O2 Flow FiO2 Mean Ox Delivery Rate 09/04 904 96 Nasal 95% Cannula 09/04 0746 98.7 100 20 94/54 98 Nasal Cannula 09/04 0546 97 Nasal 95% Cannula 09/04 0441 97.1 103 20 110/67 98 Nasal 95% Cannula 09/04 0230 99.1 101 22 108/62 96 Non 10L ReBreather 09/04 0113 94 Non 10L ReBreather 09/03 2339 98.0 107 20 90/53 93 Intake & Output 09/04 1600 09/04 0800 09/04 0000 Intake Total Output Total Balance Patient 79.379 kg Weight Weight Reported by Patient Measurement Method Physical Exam General Appearance: Sleeping Cardiovascular: Regular Rate Lungs: Normal Air Movement Current Medications: Current Medications Sig/Tanya Start time Last Medication Dose Route Stop Time Status Admin Acetaminophen 0 .STK-MED ONE 09/04 808 DC IV Alprazolam 0 .STK-MED ONE 09/04 0524 DC PO Alprazolam 0.5 MG ONCE ONE 09/04 0515 DC 09/04 PO 09/04 0616 0622 Ceftazidime 0 .STK-MED ONE 09/04 0143 DC .ROUTE Ceftazidime 1,000 MG ONCE ONE 09/04 0130 DC 09/04 IV 09/04 0131 0157 Dronabinol 5 MG BID 09/04 1000 AC 09/04 PO 0902 Famotidine 0 .STK-MED ONE 09/04 0810 DC IV Heparin Sodium 5,000 UNIT Q8 09/04 06 CAN (Porcine) SC Hydromorphone HCl 0 .STK-MED ONE 09/04 614 DC .ROUTE Hydromorphone HCl 2 MG Q2 HRS NEEDED PRN 09/04 0600 AC 09/04 IV 0614 Insulin Aspart 0 AT BEDTIME 09/04 2200 AC SC Insulin Aspart 0 TIDAC 09/04 0800 AC 09/04 SC 0902 Lactulose 30 GM TID 09/04 1000 DC PO Lactulose 20 GM TID 09/04 1000 AC 09/04 PO 0902 Morphine Sulfate 60 MG TID 09/04 1000 AC 09/04 PO 0907 Morphine Sulfate 0 .STK-MED ONE 09/04 0909 DC PO Morphine Sulfate 0 .STK-MED ONE 09/04 0624 DC PO Morphine Sulfate 60 MG TID 09/04 0552 DC 09/04 PO 0622 Omeprazole 40 MG DAILY AC 09/04 0700 AC 09/04 PO 0718 Ondansetron HCl 0 .STK-MED ONE 09/04 08 DC .ROUTE Sodium Chloride 1,000 ML BOLUS ONE 09/04 013 DC 09/04 IV 09/04 022 0136 Sodium Chloride 1,000 ML BOLUS ONE 09/040 DC 09/04 IV 09/04 022 0309 Sodium Chloride 1,000 ML BOLUS ONE 09/04 0130 DC 09/04 IV 09/04 0229 0436 Vancomycin HCl 0 .STK-MED ONE 09/04 0143 DC .ROUTE Vancomycin HCl 1,000 MG ONCE ONE 09/04 129 DC 09/04 Dextrose/Water 250 ML IV 09/04 0229 0157 Last 24 Hrs of Lab/Lee Results Last 24 Hrs of Labs/Mics: Laboratory Tests 09/04/17 0715: Anion Gap 8, Estimated GFR > 60, BUN/Creatinine Ratio 35.0 H, CBC w Diff NO MAN DIFF REQ, RBC 2.57 L, MCV 82.8, MCH 26.8 L, MCHC 32.3 L, RDW 21.5 H, MPV 9.2 , Gran % 82.3 H, Lymphocytes % 11.1 L, Monocytes % 5.7, Eosinophils % 0.9, Basophils % 0, Absolute Granulocytes 6.9 H, Absolute Lymphocytes 0.9 L, Absolute Monocytes 0.5, Absolute Eosinophils 0.1, Absolute Basophils 0 09/04/17 0329: Lactic Acid 1.6 09/04/17 0210: pH 7.44, pCO2 32 L, pO2 80, HCO3 21, ABG O2 Sat (Measured) 94.0 L, Carboxyhemoglobin 1.0 L, O2 Concentration % 1.0, O2 Delivery Method NRB, Phlebotomy Draw Site RIGHT BRACHIAL 09/04/17 0010: Ammonia 16 09/04/17 0010: Anion Gap 9, Estimated GFR > 60, BUN/Creatinine Ratio 37.1 H, Glucose 130 H, Lactic Acid 2.8 H, Calcium 7.7 L, Total Bilirubin 1.5 H, AST 165 H, ALT 118 H, Alkaline Phosphatase 426 H, Troponin I < 0.01, Jzf-P-Hnyjqfqfowy Pept 200 H , Total Protein 6.2 L, Albumin 2.6 L, Globulin 3.6, Albumin/Globulin Ratio 0.7 L, CBC w Diff MAN DIFF ORDERED, RBC 2.95 L, MCV 82.3, MCH 26.4 L, MCHC 32.1 L, RDW 20.8 H, MPV 9.4, Segmented Neutrophils 87 H, Band Neutrophils 4, Lymphocytes 3 L, Monocytes 4, Eosinophils 1, Metamyelocytes 1, Platelet Estimate ADEQUATE, Polychromasia 1+, Hypochromic-Microcytic 2+, Poikilocytosis 1 +, Anisocytosis 2+, Target Cells 1+, Fld Total RBCs Counted 100 Microbiology 09/04 0044 NASOPHARYN: Influenza Virus A & B Rapid Smear - COMP 09/04 14 BLOOD: Blood Culture - RECD 09/04 9 BLOOD: Blood Culture - RECD Assessment/Plan Assessment: Mr. Echevarria is 52 year old male with past medical history significant for HCC ( diagnosed 2017) s/p drug-eluting bead trans-arterial chemoembolization with new metastatic lung disease, Hepatitis C s/p 3 months of therapy and alcoholic cirrhosis, discharged on 08/28/17 for comfort care at [facility]. History was obtained from the patient's sister as he was unable to finish complete sentences without he did shortness of breath. She reported that patient was doing fine, for the last 3 days they noticed shortness of breath on long distance walking and he was de-satting so started him on 4 L oxygen. Today patient went to bathroom, and evidently for 2 minutes he was off oxygen while in the bathroom, called his sister for help, was about to pass out, patient was satting 58% on 2 L and brought to ED for evaluation by ambulance. Sister denied any history of cough, fever, chills, upper respiratory infection. She reported chest pain and palpitation with shortness of breath. Problem list #ARDS 2/2 HCC lung metastasis #Hepatic cell carcinoma with lung metastasis #Anemia from chronic disease #Hypertension #Diabetes Plan -Discussed with Patient's sister regarding plan of care, and agreed to proceed with comfort measures. -Started Moxifloxacin. -Pending case management in a.m. for hospice evaluation -Appreciated Pulmonary consultation -Appreciated Hematology consultation -Patient's sister reported that patient doesn't know about lung metastasis and she doesn't want anybody to discuss this with him Code Comfort Measure DVT prophylaxis Alps Diet regular Problem List: 1. SOB (shortness of breath) 2. HCC (hepatocellular carcinoma) 3. Hepatocellular carcinoma metastatic to left lung Pain Ratin Pain Location: NA Pain Goal: Remain pain free Pain Plan: see AP Tomorrow's Labs & Rationales: NA Yuriy Parham 09/04/17 1404: Attending MD Review Statement Attending Statement Attending MD Statement: examined this patient, discuss w/resident/PA/MANAGER CARD, agreed w/resident/PA/MANAGER CARD, discussed with family, reviewed EMR data (avail), discussed with nursing, discussed with case mgmt, reviewed images, amended to note Attending Assessment/Plan: 52 year-old male male with cirrhosis of the liver, alcohol abuse, hepatitis C status post 3 months of therapy, DM, and HCC s/p VICTOR HUGO TACE procedure on 12/31/2016 who presented to the ED with worsening dyspnea. Chest x-ray demonstrated worsening airspace disease. Labs with drop in h/h, leukocytosis. Patient received antibiotics in ER and placed in observation status for possible pneumonia possible gram negative gram positive. Patient has overall declining funtional status with lung and liver involvement. Patient received empiric abx in ER, will continue for now and can dc if culture come back negative. His sister Divina wants abx if needed even if he acceots hospice. Anemia and HCC : Anemia in setting of cirrhosis. He had declined endoscopy during last admission. HCC seems to be stable. Liver function tests are stable. hematology/oncology consulted and recommend hospice evaluation. Pulmonary eval pending. Hospice eval pending. I discussed patient care with TEODORA Murcia who is agreeable to management.
--- NOTE | 2017-09-04 14:08 | Cons- Pulmonary ---
General Information and HPI Consulting Request Date of Consult: 09/04/17 Requested By: Med team History of Present Illness: Mr. Echevarria is a 52 year-old male male with cirrhosis of the liver, alcohol abuse, hepatitis C status post 3 months of therapy, DM, and HCC s/p VICTOR HUGO TACE procedure on 12/31/2016 who presented to the ED with worsening dyspnea. He was recently discharged from the hospital on 08/28/2017 to [facility]. He has been progressively worsened with oxygen requirement. He has increasing abdominal distension. He has increasing generalized pain. He has no fever or chills. He has no nausea or vomiting. He denies any hematemesis or dark/black stool. He did have hematemesis during last admission. Allergies/Medications Allergies: Coded Allergies: NO KNOWN ALLERGIES (10/29/12) Home Med List: Dronabinol (Marinol) 5 MG CAPSULE 1 CAP PO BID nasuea (Reported) Esomeprazole (Nexium) 40 MG CAPSULE.DR 1 CAP PO DAILY GI (Reported) Hydromorphone HCl (Dilaudid) 4 MG TABLET 1 TAB PO Q2 HRS NEEDED PAIN CONTROL (Reported) Hydromorphone HCl 2 MG TABLET 4 MG PO Q2 HRS NEEDED PRN PAIN SCALE 7-10 ( SEVERE) Ibuprofen 800 MG TABLET 1 TAB PO TID PRN pain Lactulose 10 GRAM/15 ML SOLUTION 30 ML PO TID gi (Reported) Lisinopril (Zestril) 20 MG TABLET 1 TAB PO DAILY BP (Reported) Morphine Sulfate (Ms Contin) 30 MG TABLET.ER 90 MG PO TID PAIN CONTROL ( Reported) Morphine Sulfate (Morphine Sulfate ER) 15 MG TABLET.ER 6 TAB PO TID PRN pain (Reported) Sitagliptin Phosphate (Januvia) 100 MG TABLET 1 TAB PO DAILY DM (Reported) Review of Systems Review of Systems Constitutional: Reports: see HPI. Past History Travel History Traveled to [place] past 21 day No Medical History Neurological: migraine EENT: NONE Cardiovascular: hypertension, HIGH CHOLESTEROL Respiratory: bronchitis Gastrointestinal: peptic ulcer disease (erosive gastritis), internal hemorrhoids Hepatic: cirrhosis, hepatitis C Renal: NONE Musculoskeletal: NONE Psychiatric: NONE Endocrine: diabetes Blood Disorders: HEP C Cancer(s): liver cancer, HCC BILINGUAL SALES CONSULTANT/Reproductive: NONE Surgical History Surgical History: JAW FX, RIGHT HIP FX Psychosocial History ETOH Use: denies use Exam & Diagnostic Data Last 24 Hrs of Vital Signs/I&O Vital Signs Date Time Temp Pulse Resp B/P B/P Pulse O2 O2 Flow FiO2 Mean Ox Delivery Rate 09/04 1248 93 Nasal 95% Cannula 09/04 0905 96 Nasal 95% Cannula 09/04 0746 98.7 100 20 94/54 98 Nasal Cannula 09/04 0546 97 Nasal 95% Cannula 09/04 0441 97.1 103 20 110/67 98 Nasal 95% Cannula 09/04 0230 99.1 101 22 108/62 96 Non 10L ReBreather 09/04 0113 94 Non 10L ReBreather 09/03 2339 98.0 107 20 90/53 93 Intake & Output 09/04 1600 09/04 0800 09/04 0000 Intake Total Output Total Balance Patient 175 lb Weight Weight Reported by Patient Measurement Method Last 48 Hrs of Labs/Lee: Laboratory Tests 09/04/17 0715: Anion Gap 8, Estimated GFR > 60, BUN/Creatinine Ratio 35.0 H, CBC w Diff NO MAN DIFF REQ, RBC 2.57 L, MCV 82.8, MCH 26.8 L, MCHC 32.3 L, RDW 21.5 H, MPV 9.2 , Gran % 82.3 H, Lymphocytes % 11.1 L, Monocytes % 5.7, Eosinophils % 0.9, Basophils % 0, Absolute Granulocytes 6.9 H, Absolute Lymphocytes 0.9 L, Absolute Monocytes 0.5, Absolute Eosinophils 0.1, Absolute Basophils 0 09/04/17 0329: Lactic Acid 1.6 09/04/17 0210: pH 7.44, pCO2 32 L, pO2 80, HCO3 21, ABG O2 Sat (Measured) 94.0 L, Carboxyhemoglobin 1.0 L, O2 Concentration % 1.0, O2 Delivery Method NRB, Phlebotomy Draw Site RIGHT BRACHIAL 09/04/17 0010: Ammonia 16 09/04/17 0010: Anion Gap 9, Estimated GFR > 60, BUN/Creatinine Ratio 37.1 H, Glucose 130 H, Lactic Acid 2.8 H, Calcium 7.7 L, Total Bilirubin 1.5 H, AST 165 H, ALT 118 H, Alkaline Phosphatase 426 H, Troponin I < 0.01, Ueu-X-Dbukavorkrj Pept 200 H , Total Protein 6.2 L, Albumin 2.6 L, Globulin 3.6, Albumin/Globulin Ratio 0.7 L, CBC w Diff MAN DIFF ORDERED, RBC 2.95 L, MCV 82.3, MCH 26.4 L, MCHC 32.1 L, RDW 20.8 H, MPV 9.4, Segmented Neutrophils 87 H, Band Neutrophils 4, Lymphocytes 3 L, Monocytes 4, Eosinophils 1, Metamyelocytes 1, Platelet Estimate ADEQUATE, Polychromasia 1+, Hypochromic-Microcytic 2+, Poikilocytosis 1 +, Anisocytosis 2+, Target Cells 1+, Fld Total RBCs Counted 100 Microbiology 09/04 0044 NASOPHARYN: Influenza Virus A & B Rapid Smear - COMP Assessment/Plan Impression/Plan: General Appearance: anxious, cachetic, mild distress Head: atraumatic, normal appearance Eyes: Bilateral: PERRL, EOMI. Ears, Nose, Throat: normal pharynx Respiratory: chest non-tender, quiet respiration, decreased breath sounds, accessory muscle use, crackles, on high flow oxygen Cardiovascular: edema, tachycardia Gastrointestinal: distention, tenderness Extremities: 2+ BLE edema Neurologic/Psych: awake, alert, oriented x 3 Skin: warm/dry IMPRESSION Mr. Echevarria is a 52 yo m with a PMH significant for HCC (diagnosed 2017) s/p VICTOR HUGO TACE with new metastatic lung disease, Hepatitis C IMPRESSION * Hypoxic resp failure due to alveolar filling process highly sugg of rapidly advancing malignancy with prob lymphangitic carinamatosis ([address] showed muliple innumerable 9 mm lung nodules diffusely through out the lung with sig lymphadenopathy), Diff dx include viral pna and unlikely bacterial pna * Very advanced HCC with cirrhosis with decompensated liver disease * Poor performance status with rapidly progressing cancer REC Now on comfort measures Can dc abx Pt wishes more pain control, will increase his narcotics Will follow prn Call if needed Consult Acknowledgment - Thank you for your consult request.
[2017-09-04 18:42] VITALS: BP 110/60
[2017-09-04 22:35] VITALS: BP 102/60
[2017-09-05 06:27] VITALS: BP 100/60
--- NOTE | 2017-09-05 08:38 | PN- Housestaff ---
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 Nursing staff stated that patient received 2mg dilaudid IV and had MS contin as well just before I entered however still in pain. Patient's family member would like some change on pain meds. Patient is still on high flow oxygen. Review of Systems Constitutional: Reports: see HPI. Objective Last 24 Hrs of Vital Signs/I&O Vital Signs Date Time Temp Pulse Resp B/P B/P Pulse O2 O2 Flow FiO2 Mean Ox Delivery Rate 09/05 626 96.7 110 28 100/60 91 09/04 223 Nasal 95% Cannula 09/04 223 98.3 103 22 102/60 92 Nasal Cannula 09/04 2200 Nasal 95% Cannula 09/04 1900 93 Nasal 100% Cannula 09/04 1842 98.0 112 21 110/60 83 09/04 1731 Non ReBreather 09/04 1731 97.5 125 30 94/50 98 Non ReBreather 09/04 1437 92 Nasal 95% Cannula 09/04 1248 93 Nasal 95% Cannula 09/04 0905 96 Nasal 95% Cannula Intake & Output 09/05 1600 09/05 0800 09/05 0000 Intake Total 25 Output Total 200 Balance -200 25 Intake, Oral 25 Number 1 Bowel Movements Output, Urine 200 Patient 79.379 kg Weight Physical Exam General Appearance: Alert, Oriented X3, Cooperative, Moderate Distress Cardiovascular: Regular Rate, tachycardia from pain Current Medications: Current Medications Sig/Tanya Start time Last Medication Dose Route Stop Time Status Admin Azithromycin 250 MG DAILY 09/05 1000 AC 09/05 PO 0830 Dronabinol 5 MG BID 09/04 1000 AC 09/05 PO 0830 Hydromorphone HCl 4 MG Q2 HRS NEEDED PRN 09/05 0730 AC 09/05 IV 0830 Hydromorphone HCl 2 MG Q2 HRS NEEDED PRN 09/04 0600 DC 09/05 IV 0450 Insulin Aspart 0 AT BEDTIME 09/04 2200 AC SC Insulin Aspart 0 TIDAC 09/04 08 AC 09/04 SC 0902 Lactulose 30 GM TID 09/04 1000 DC PO Lactulose 20 GM TID 09/04 1000 AC 09/04 PO 0902 Morphine Sulfate 60 MG Q8 09/05 0600 AC 09/05 PO 0622 Morphine Sulfate 0 .STK-MED ONE 09/04 1710 DC PO Morphine Sulfate 60 MG TID 09/04 1000 DC 09/04 PO 2205 Morphine Sulfate 0 .STK-MED ONE 09/04 0909 DC PO Moxifloxacin HCl 400 MG DAILY 09/04 1452 DC 09/04 PO 1751 Omeprazole 40 MG DAILY AC 09/04 0700 AC 09/05 PO 0622 Assessment/Plan Assessment: Mr. Echevarria is 52 year old male with past medical history significant for HCC ( diagnosed 2016) s/p drug-eluting bead trans-arterial chemoembolization with new metastatic lung disease, Hepatitis C s/p 3 months of therapy and alcoholic cirrhosis, discharged on 08/28/17 for comfort care at [facility]. History was obtained from the patient's sister as he was unable to finish complete sentences without he did shortness of breath. She reported that patient was doing fine, for the last 3 days they noticed shortness of breath on long distance walking and he was de-satting so started him on 4 L oxygen. Today patient went to bathroom, and evidently for 2 minutes he was off oxygen while in the bathroom, called his sister for help, was about to pass out, patient was satting 58% on 2 L and brought to ED for evaluation by ambulance. Sister denied any history of cough, fever, chills, upper respiratory infection. She reported chest pain and palpitation with shortness of breath. Problem list #ARDS 2/2 HCC lung metastasis #Hepatic cell carcinoma with lung metastasis #Anemia from chronic disease #Hypertension #Diabetes Plan -Discussed with Patient's sister regarding plan of care, and agreed to proceed with comfort measures. -Would increase dilaudid IV to 4mg q2 PRN. -Continue Moxifloxacin. -Pending case management in a.m. for hospice evaluation -Appreciated Pulmonary consultation -Appreciated Hematology consultation -Patient's sister reported that patient doesn't know about lung metastasis and she doesn't want anybody to discuss this with him Code Comfort Measure DVT prophylaxis Alps Diet regular Problem List: 1. SOB (shortness of breath) 2. HCC (hepatocellular carcinoma) 3. Metastatic lung cancer (metastasis from lung to other site) Pain Ratin Pain Location: Abdomen, did not give me a pain scale Pain Goal: Pain 4 or less Pain Plan: see AP Tomorrow's Labs & Rationales: JAYLEN ParhamYuriy 09/05/17 1256: Attending MD Review Statement Attending Statement Attending MD Statement: examined this patient, discuss w/resident/PA/CONTRACT NEGOTIATION MANAGER, agreed w/resident/PA/CONTRACT NEGOTIATION MANAGER, discussed with family, reviewed EMR data (avail), discussed with nursing, discussed with case mgmt, reviewed images, amended to note Attending Assessment/Plan: 52 year-old male male with cirrhosis of the liver, alcohol abuse, hepatitis C status post 3 months of therapy, DM, and HCC s/p VICTOR HUGO TACE procedure on 12/31/2016 who presented to the ED with worsening dyspnea. Chest x-ray demonstrated worsening airspace disease. Labs with drop in h/h, leukocytosis. Patient received antibiotics in ER and placed in observation status for worsening shortness of breath 2/2 to his worsening underlying lung carcinomatosis. Patient has overall declining funtional status with lung and liver involvement from advacned HCC. Patient received empiric abx in ER, Pulmonary consulted and recommend dc abx. Anemia and HCC : Anemia in setting of cirrhosis. He had declined endoscopy during last admission. HCC seems to be stable. Liver function tests are stable. hematology/oncology consulted and recommend hospice evaluation. Pulmonary eval pending. Hospice eval pending. I discussed patient care with TEODORA Murcia who is agreeable to management. (she wants pain control , does not want lab draws). Patient wants conservative management and make patient comfortable0 DNR/DNI.
[2017-09-05 14:00] VITALS: BP 130/42
[2017-09-05 22:18] VITALS: BP 100/60
[2017-09-06 06:21] VITALS: BP 108/70
--- NOTE | 2017-09-06 09:26 | PN- Housestaff ---
Dayton Kerr MD 09/06/1726: Subjective Follow-up For: Acute hypoxic respiratory failure Lymphangitic carcinomatosis Hepatocellular cancer with lung metastasis Subjective: patient seems to be obtunded with moments of lucidity mostly just moaning in pain abdomen distended and tender, poor PO intake on high flow nasal oxygen Review of Systems Constitutional: Reports: see HPI. Objective Last 24 Hrs of Vital Signs/I&O Vital Signs Date Time Temp Pulse Resp B/P B/P Pulse O2 O2 Flow FiO2 Mean Ox Delivery Rate 09/06 799 Nasal 100% Cannula 09/06 0621 98.8 112 26 108/70 84 Nasal Cannula 09/06 0000 85 Nasal 95% Cannula 09/05 2218 98.1 112 22 100/60 85 Nasal Cannula 09/05 1600 Nasal 95% Cannula Intake & Output 09/06 0000 Intake Total 20 240 Output Total Balance 20 240 Intake, IV 20 Intake, Oral 240 Physical Exam General Appearance: Moderate Distress Cardiovascular: Regular Rate, Normal S1, Normal S2, No Murmurs Lungs: Clear to Auscultation, Normal Air Movement Abdomen: Soft, distended but soft, extreme diffuse tenderness Extremities: No Clubbing, No Cyanosis, No Edema, Normal Pulses Assessment/Plan Assessment: Mr. Echevarria is 52 year old male with past medical history significant for HCC ( diagnosed 2017) s/p drug-eluting bead trans-arterial chemoembolization with new metastatic lung disease, Hepatitis C s/p 3 months of therapy and alcoholic cirrhosis, discharged on 08/28/17 for comfort care at [facility]. Progressive exertional dyspnea, had an episode of severe hypoxia and respiratory distress yesterday attempting to get out of bed to the bathroom. Currently the patient is moaning in pain, non participating in his care, lethargic, and on high flow oxygen. #ARDS 2/2 HCC lung metastasis #Hepatic cell carcinoma with lung metastasis #Anemia from chronic disease #Hypertension #Diabetes Plan -Discontinue antibiotics, PPI and other unncessary medications -Increase MSContin to 75mg q8h standing -Continue dilaudid for breakthrough -Change ativan from po to iv 0.5mg q2h prn -Family meeting with POA-agreed for hospice evaluation likely inpatient given high fio2 requirement Regular diet Comfort Measures DVT ppx-ALPs mechanical anemic Problem List: 1. Cirrhosis of liver 2. Liver cancer 3. Ascites 4. Epigastric pain 5. Hepatocellular carcinoma metastatic to left lung 6. HCC (hepatocellular carcinoma) 7. SOB (shortness of breath) 8. Respiratory distress Pain Ratin Pain Location: abdominal Pain Goal: Pain 4 or less Pain Plan: ginette foster Tomorrow's Labs & Rationales: none Marce Washington MD 09/06/17 1318: Attending MD Review Statement Attending Statement Attending MD Statement: examined this patient, discuss w/resident/PA/RUBBER GOODS REPAIRER, agreed w/resident/PA/RUBBER GOODS REPAIRER, discussed with family, reviewed EMR data (avail), discussed with nursing, discussed with case mgmt, reviewed images, amended to note Attending Assessment/Plan: Patient seen and examined, continues to do poor, Still requiring high flow O2. Vital Signs Date Time Temp Pulse Resp B/P B/P Pulse O2 O2 Flow FiO2 Mean Ox Delivery Rate 09/06 0800 Nasal 100% Cannula 09/06 0621 98.8 112 26 108/70 84 Nasal Cannula 09/06 0000 85 Nasal 95% Cannula 09/05 2218 98.1 112 22 100/60 85 Nasal Cannula 09/05 1600 Nasal 95% Cannula 09/05 1400 98.4 119 22 130/42 85 Nasal 95% Cannula on exam; awake, nad. cv; s1,s2, rrr resp; + junky bs b/l abd; soft, bs+ A/P; 52 y/o M with pmh sig for cirrhosis of the liver, alcohol abuse, hepatitis C status post 3 months of therapy, DM, and HCC s/p VICTOR HUGO TACE procedure on 2016 admitted with Hypoxic resp failure due to alveolar filling process highly sugg of rapidly advancing malignancy with prob lymphangitic carinamatosis. Dr. Kerr spoke with Patient's sister (POA). patient is comfort care and sister is now willing convert him to hospice. Hospice will be consulted and aptient will be admitted likely to inpatient hospice.
--- NOTE | 2017-09-06 09:26 | PN- Housestaff ---
Assessment/Plan Assessment: Mr. Echevarria is 52 year old male with past medical history significant for HCC ( diagnosed 2017) s/p drug-eluting bead trans-arterial chemoembolization with new metastatic lung disease, Hepatitis C s/p 3 months of therapy and alcoholic cirrhosis, discharged on 08/28/17 for comfort care at [facility]. History was obtained from the patient's sister as he was unable to finish complete sentences without he did shortness of breath. She reported that patient was doing fine, for the last 3 days they noticed shortness of breath on long distance walking and he was de-satting so started him on 4 L oxygen. Today patient went to bathroom, and evidently for 2 minutes he was off oxygen while in the bathroom, called his sister for help, was about to pass out, patient was satting 58% on 2 L and brought to ED for evaluation by ambulance. Sister denied any history of cough, fever, chills, upper respiratory infection. She reported chest pain and palpitation with shortness of breath. Problem list #ARDS 2/2 HCC lung metastasis #Hepatic cell carcinoma with lung metastasis #Anemia from chronic disease #Hypertension #Diabetes Plan -Discussed with Patient's sister regarding plan of care, and agreed to proceed with comfort measures. -Would increase dilaudid IV to 4mg q2 PRN. -Continue Moxifloxacin. -Pending case management in a.m. for hospice evaluation -Appreciated Pulmonary consultation -Appreciated Hematology consultation -Patient's sister reported that patient doesn't know about lung metastasis and she doesn't want anybody to discuss this with him Code Comfort Measure DVT prophylaxis Alps Diet regular
[2017-09-06 15:37] VITALS: BP 100/60
== END 2017-09-06 19:37 | disposition hospice, home (50) ==
LOC: ERH 23:31 → ERHI 09-04 02:45 → 2NA 09-04 02:45 → ERHI 09-04 03:40 → CANRESERV 09-04 16:47 → ENRESERV 09-04 16:47 → ENTRNSPT 09-04 17:52 → EDTRNSPT 09-04 17:53 → EDTRNSPTSTS 09-04 18:12 → 2NA 09-04 18:26 → CMPTRNSPT 09-04 18:38 → 2NA 09-06 19:37
PROVIDERS: Physician Assistant Medical; Student in an Organized Health Care Education/Training Program
DX: C22.0 Liver cell carcinoma (principal); Z51.5 Encounter for palliative care; C78.00 Secondary malignant neoplasm of unspecified lung; C77.2 Secondary and unspecified malignant neoplasm of intra-abdominal lymph nodes; D63.0 Anemia in neoplastic disease; K74.60 Unspecified cirrhosis of liver; F10.10 Alcohol abuse, uncomplicated; E11.9 Type 2 diabetes mellitus without complications; J96.01 Acute respiratory failure with hypoxia; B18.2 Chronic viral hepatitis C; G43.909 Migraine, unspecified, not intractable, without status migrainosus; I10 Essential (primary) hypertension; K27.9 Peptic ulcer, site unspecified, unspecified as acute or chronic, without hemorrhage or perforation; K29.60 Other gastritis without bleeding
CPT/HCPCS: 1328; 1425; 1530; 1748; 71045; 82436; 87040; 87804; 87804-59; 93005; 93010; 96361; 96374; 96375; G0378; J0131; J0456; J0713; J2405; J3370; J7060

== ENCOUNTER 2017-09-06 19:45 | Inpatient (IN) | payer OTHER ==
[~2017-09-06 19:45] MED LIST changes: +DILAUDID4 M1 PO; +MS CONTIN30 M1 PO
--- NOTE | 2017-09-06 20:19 | History & Physical ---
General Information and HPI Chief Complaint: Hypoxia, respiratory failure. 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 Patient gradually deteriorated ( moaning in pain, lethargic with increasing O2 requirement) over the next two days in the hospital. He also had increasing abdominal distension and generalized pain. Discussion was held with patient and patient's sister who decided to keep the patient comfortable and involve Hospice care. metal patternmaker apprentice evaluated patient and deemed him to be a candidate for Inpatient Hospice. Allergies/Medications Allergies: Coded Allergies: NO KNOWN ALLERGIES (10/29/12) Past History Medical History Neurological: migraine EENT: NONE Cardiovascular: hypertension, HIGH CHOLESTEROL Respiratory: bronchitis Gastrointestinal: peptic ulcer disease (erosive gastritis), internal hemorrhoids Hepatic: cirrhosis, hepatitis C Renal: NONE Musculoskeletal: NONE Psychiatric: NONE Endocrine: diabetes Blood Disorders: HEP C Cancer(s): liver cancer, HCC GRINDING MILL OPERATOR/Reproductive: NONE History of MRSA: No History of VRE: No History of CDIFF: No Surgical History Surgical History: JAW FX, RIGHT HIP FX Past Family/Social History Family History: -- Psychosocial History: -- Functional Ability: Unable to carry out ADLs. Review of Systems Review of Systems: As mentioned in HPI. Review of Systems Constitutional: Reports: see HPI. Exam & Diagnostic Data Last 24 Hrs of Vital Signs/I&O Vitals reviewed. Intake & Output 09/07 1600 09/07 0800 09/07 0000 Intake Total Output Total 250 Balance -250 Output, Urine 250 Physical Exam General Appearance Lethargic, tachypneic in respiratory distress. Skin No Breakdown, No Significant Lesion HEENT Atraumatic Neck Supple Cardiovascular Regular Rate, Normal S1, Normal S2, No Murmurs Lungs Bilatera rhonchi++ Abdomen Soft, Distended, nontender Neurological Not assessed Extremities Normal Pulses, Bilateral lower extremity edema Vascular Pulses Symmetrical Last 24 Hrs of Labs/Lee: Blood work reviewed. Labs: WBC 11.7, H/H 7.8/24.3, Plt 291, bands 4, Na 136, K 5.3, BUN 26, lactic acid 2.8, Ca 7.7, T. Bili 1.5, AST 165, ALT 118, Alk phos 426, trop neg. AB.44/32/80/21. Diagnostic Data EKG Results EKG: sinus tachycardia, nonspecific T wave changes. CXR Results CXR: significant bilateral airspace disease ?CHF vs. ARDS -worsened since exam of Aug 22. Assessment/Plan Assessment: 52 yo M with h/o HCC s/p drug eluting bead trans-arterial chemoembolization with new metastatic lung disease, Hepatitis C, liver cirrhosis, alcohol abuse, DM, is here with hypoxic respiratory failure due to lymphangitic carcinomatosis with possible bacterial pneumonia. Plan: - Admit to Hospice Care. - No blood work or labs to be done. - IV morphine as needed for dyspnea. - IV dilaudid as needed for pain. - Scopolamine patch or Robinul for secretions. - Lubriderm lotion for dry skin. - No Ativan as family does not want it to be given. - SC Haldol for agitation PRN. - Tylenol as needed for fever. - Comfort food - Discussed with metal patternmaker apprentice. - Will continue to follow.
--- NOTE | 2017-09-07 22:30 | Discharge Summary ---
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 Patient gradually deteriorated ( moaning in pain, lethargic with increasing O2 requirement) over the next two days in the hospital. He also had increasing abdominal distension and generalized pain. Discussion was held with patient and patient's sister who decided to keep the patient comfortable and involve Hospice care. vegetable picker evaluated patient and deemed him to be a candidate for Inpatient Hospice. Patient was kept comfortable with IV morphine as needed for dyspnea, IV dilaudid as needed for pain, scopolamine patch for secretions and SC Haldol as needed for agitation. Patient was pronounced on Jul 06 at 20.40 pm. Family at bedside. certificate completed. Total time spent < 30 mins. Complications: -- Allergies: Coded Allergies: NO KNOWN ALLERGIES (10/29/12) Significant Procedures: None Pertinent Lab Results: Labs: WBC 11.7, H/H 7.8/24.3, Plt 291, bands 4, Na 136, K 5.3, BUN 26, lactic acid 2.8, Ca 7.7, T. Bili 1.5, AST 165, ALT 118, Alk phos 426, trop neg. AB.44/32/80/21. Disposition Summary Disposition Principal Diagnosis: Acute hypoxic respiratory failure Hepatocellular carcinoma with metastatic lung disease Lymphangitic carcinomatosis Additional Diagnosis: Hepatitis C Decompensated liver disease Discharge Disposition: hospice - medical facilit Discharge Instructions General Discharge Information Code Status: Hospice Patient's Diet: -- Patient's Activity: -- Follow-Up Instructions/Appts: -- Copies To: Kavita Perdue APRN, MD Review Statement Documenting Attending: Marichuy Clark MD Other Findings: Documentation done by self.
== END 2017-09-06 20:40 | disposition expired | DRG 435 ==
LOC: 2NA 19:45
DX: C22.0 Liver cell carcinoma (principal); J96.01 Acute respiratory failure with hypoxia; C80.0 Disseminated malignant neoplasm, unspecified; C78.00 Secondary malignant neoplasm of unspecified lung; K70.10 Alcoholic hepatitis without ascites; K70.30 Alcoholic cirrhosis of liver without ascites; Z51.5 Encounter for palliative care; Z66 Do not resuscitate
CPT/HCPCS: 2NAP; J1630